=== PATIENT | male | born 1970 | race Caucasian/White ===

== ENCOUNTER 2019-11-21 21:32 | Emergency (ER) | payer MEDICARE ==
--- NOTE | 2019-11-21 21:45 | ERPHSYRPT ---
- History of Present Illness Time Seen by Provider: 11/21/19 21:45 Source: patient Exam Limitations: no limitations Physician History: This is a 49-year-old male who was had a cough for several weeks (at least 3 weeks). Initially, he was only having chest pain with his cough. Patient still has persistent cough but he also has some persistent chest pain. His description is more of a left chest wall pain it is localized and nonradiating it is tender to touch and more tender when he coughs. Approximately 2 months ago the patient was tested for COVID-19 and it was negative. He also had flu swabs taken and those results were also negative except for he was positive for RSV. 2 days ago, the patient went to [place] and returned last night. He has no known new exposures to any patients or people with positive COVID-19 test. He does not feel any different since his trip and return to [place]. However, he is most concerned about the persistent cough and the persistent localized left chest wall chest pain. He also states that he is becoming more fatigued because he is coughing chronically. He takes Seroquel to sleep, insulin for his diabetes, and gabapentin for treatment of peripheral neuropathy. Patient does smoke cigarettes daily. Is not had a fever. On arrival his heart rate is 84 and his room air oxygenation is 99%. Timing/Duration: week(s) (3) Cough Quality/Degree: moderate, productive cough, sputum Possible Cause: chronic episodes Modifying Factors: Improves With: coughing Associated Symptoms: chest pain/soreness (Localized left chest wall pain), cough , No headache, No shortness of breath Allergies/Adverse Reactions: No Known Drug Allergies Allergy (Unverified 11/21/19 23:07) Travel Risk - International Travel Have you traveled outside of the country in past 3 weeks: No Have you or anyone close to you been diagnosed with or: No Do your reside in a community with a known COVID-19 case?: Yes If Yes where:: [facility] - Coronavirus Screening Has patient experienced Coronavirus symptoms: No - Review of Systems Constitutional: Fatigue, No Fever, No Chills, No Night Sweats Eyes: No Symptoms Ears, Nose, & Throat: No Symptoms Respiratory: Cough, No Dyspnea, No Stridor, No Wheezing Cardiac: Chest Pain (Primarily with cough) Abdominal/Gastrointestinal: No Symptoms, No Abdominal Pain, No Nausea, No Vomiting, No Diarrhea Genitourinary Symptoms: No Symptoms Musculoskeletal: Other (Left chest wall pain) Skin: No Symptoms Neurological: No Symptoms, Sensory Changes Psychological: No Symptoms Endocrine: No Symptoms Hematologic/Lymphatic: No Symptoms Immunological/Allergic: No Symptoms All Other Systems: Reviewed and Negative - Past Medical History Pertinent Past Medical History: Yes - Nursing Vital Signs Nursing Vital Signs: Initial Vital Signs Temperature 98.9 F 11/21/19 22:34 Pulse Rate 75 11/21/19 22:34 Respiratory Rate 18 11/21/19 22:34 Blood Pressure 142/99 11/21/19 22:34 O2 Sat by Pulse Oximetry 98 11/21/19 22:34 Pain Scale Pain Intensity 8 - Physical Exam General Appearance: mild distress, alert, anxiety Eye Exam: PERRL/EOMI, eyes nml inspection Ears, Nose, Throat Exam: normal ENT inspection, moist mucous membranes Neck Exam: normal inspection, non-tender, supple, full range of motion Respiratory Exam: normal breath sounds, chest tenderness (Left anterior chest wall. Localized. Worse with palpation), lungs clear, airway intact, No respiratory distress, No accessory muscle use, No rhonchi, No wheezing, No stridor Cardiovascular Exam: regular rate/rhythm, normal heart sounds, normal peripheral pulses Gastrointestinal/Abdomen Exam: soft, normal bowel sounds, No tenderness Rectal Exam: not done Back Exam: normal inspection, normal range of motion, CVA tenderness Extremity Exam: normal inspection, normal range of motion, pelvis stable Neurologic Exam: alert, oriented x 3, cooperative, cage fighter II-XII nml as tested Skin Exam: normal color, warm Lymphatic Exam: No adenopathy SpO2 Interpretation: normal O2 Delivery: Room Air - Course Nursing assessment & vital signs reviewed: Yes EKG Interpreted by Me: RATE (76), Sinus Rhythm, NORMAL AXIS, NORMAL INTERVALS, NORMAL QRS, Other (No acute ischemic changes. No comparison EKG available) Ordered Tests: Active Orders 24 hr Category Date Time Status [employer] STAT Care 11/21/19 22:35 Active EKG-ER Only STAT Care 11/21/19 22:34 Active IV Insertion STAT Care 11/21/19 22:34 Active Isolation, Initiate & Maintain Q4H Care 11/21/19 23:06 Active CHEST 1 VIEW (PORTABLE) Stat Exams 05/26/20 23:26 Taken CBC W DIFF Stat Lab 11/21/19 22:55 Completed CMP Stat Lab 11/21/19 22:55 Completed D-DIMER QUANTITATIVE Stat Lab 11/21/19 22:55 Completed Traverse Screen Stat Lab 11/21/19 22:55 Completed NT PRO BNP Stat Lab 11/21/19 22:55 Completed PROTIME WITH INR Stat Lab 11/21/19 22:55 Completed TROPONIN Q3H Lab 11/21/19 22:55 Completed TROPONIN Q3H Lab 11/22/19 01:45 Ordered TROPONIN Q3H Lab 11/22/19 04:45 Ordered TROPONIN Q3H Lab 11/22/19 07:45 Ordered TROPONIN Q3H Lab 11/22/19 10:45 Ordered UA W/RFX UR CULTURE Stat Lab 11/21/19 23:09 Completed Medication Summary Discontinued Medications Generic Name Dose Route Start Last Admin Trade Name Freq PRN Reason Stop Dose Admin Aspirin 324 mg 11/21/19 22:34 11/21/19 23:15 Baby Aspirin 81 Mg Chew PO 11/21/19 22:35 324 mg STAT ONE Administration Aspirin Confirm 11/21/19 23:15 Baby Aspirin 81 Mg Chew Administered 11/21/19 23:16 Dose 324 mg .ROUTE .STSpecifiedBy-MED ONE Lab/Rad Data: Laboratory Result Diagrams 11/21/19 22:55 11/21/19 22:55 Laboratory Results 11/21/19 11/21/19 11/21/19 Range/Units 23:09 22:55 22:55 WBC (4.0-10.5) K/mm3 RBC (4.1-5.6) M/mm3 Hgb (12.5-18.0) gm/dl Hct (42-50) % MCV (78-100) fl MCH (26-32) pg MCHC (32-36) g/dl RDW (11.5-14.0) % Plt Count (150-450) K/mm3 MPV (7.5-11.0) fl Gran % (36.0-66.0) % Eos # (Auto) (0-0.5) Absolute Lymphs (auto) (1.0-4.6) Absolute Monos (auto) (0.0-1.3) Lymphocytes % (24.0-44.0) % Monocytes % (0.0-12.0) % Eosinophils % (0.00-5.0) % Basophils % (0.0-0.4) % Absolute Granulocytes (1.4-6.9) Basophils # (0-0.4) PT (8.83-12.87) SECONDS INR (0.8-3.0) D-Dimer (215-500) ng/mL Sodium (137-145) mmol/L Potassium (3.5-5.1) mmol/L Chloride (98-107) mmol/L Carbon Dioxide (22-30) mmol/L Anion Gap (5-15) MEQ/L BUN (9-20) mg/dL Creatinine (0.66-1.25) mg/dL Estimated GFR ML/MIN Glucose (74-106) mg/dL Calcium (8.4-10.2) mg/dL Total Bilirubin (0.2-1.3) mg/dL AST (17-59) U/L ALT (0-50) U/L Alkaline Phosphatase (38-126) U/L Troponin I (0.000-0.034) ng/mL NT-Pro-B Natriuret Pep (0-450) pg/mL Serum Total Protein (6.3-8.2) g/dL Albumin (3.5-5.0) g/dL Urine Color YELLOW (YELLOW) Urine Appearance CLEAR (CLEAR) Urine pH 6.0 (5-6) Ur Specific [place] 1.031 (1.005-1.025) Urine Protein NEGATIVE (Negative) Urine Ketones NEGATIVE (NEGATIVE) Urine Blood NEGATIVE (0-5) Rodrigo/ul Urine Nitrite NEGATIVE (NEGATIVE) Urine Bilirubin NEGATIVE (NEGATIVE) Urine Urobilinogen NEGATIVE (0-1) mg/dL Ur Leukocyte Esterase NEGATIVE (NEGATIVE) Urine WBC (Auto) NONE (0-5) /HPF Urine RBC (Auto) NONE (0-2) /HPF U Epithel Cells (Auto) NONE (FEW) /HPF Urine Bacteria (Auto) NONE (NEGATIVE) /HPF Urine Culture Reflexed NO (NO) Urine Glucose >=500 (NEGATIVE) mg/dL Monoscreen NEGATIVE (Negative) Influenza Type A Ag NEGATIVE (NEGATIVE) Influenza Type B Ag NEGATIVE (NEGATIVE) RSV (PCR) NEGATIVE (Negative) Group A Strep Antibody NOT DETECTED (NEGATIVE) 05/26/20 05/26/20 05/26/20 Range/Units 22:55 22:55 22:55 WBC (4.0-10.5) K/mm3 RBC (4.1-5.6) M/mm3 Hgb (12.5-18.0) gm/dl Hct (42-50) % MCV (78-100) fl MCH (26-32) pg MCHC (32-36) g/dl RDW (11.5-14.0) % Plt Count (150-450) K/mm3 MPV (7.5-11.0) fl Gran % (36.0-66.0) % Eos # (Auto) (0-0.5) Absolute Lymphs (auto) (1.0-4.6) Absolute Monos (auto) (0.0-1.3) Lymphocytes % (24.0-44.0) % Monocytes % (0.0-12.0) % Eosinophils % (0.00-5.0) % Basophils % (0.0-0.4) % Absolute Granulocytes (1.4-6.9) Basophils # (0-0.4) PT 11.1 (8.83-12.87) SECONDS INR 0.98 (0.8-3.0) D-Dimer 408 (215-500) ng/mL Sodium 135 L (137-145) mmol/L Potassium 4.3 (3.5-5.1) mmol/L Chloride 100 (98-107) mmol/L Carbon Dioxide 26 (22-30) mmol/L Anion Gap 12.2 (5-15) MEQ/L BUN 20 (9-20) mg/dL Creatinine 0.77 (0.66-1.25) mg/dL Estimated GFR > 60.0 ML/MIN Glucose 399 H (74-106) mg/dL Calcium 9.1 (8.4-10.2) mg/dL Total Bilirubin 0.40 (0.2-1.3) mg/dL AST 20 (17-59) U/L ALT 15 (0-50) U/L Alkaline Phosphatase 84 (38-126) U/L Troponin I < 0.012 (0.000-0.034) ng/mL NT-Pro-B Natriuret Pep 54.1 (0-450) pg/mL Serum Total Protein 6.9 (6.3-8.2) g/dL Albumin 3.9 (3.5-5.0) g/dL Urine Color (YELLOW) Urine Appearance (CLEAR) Urine pH (5-6) Ur Specific [place] (1.005-1.025) Urine Protein (Negative) Urine Ketones (NEGATIVE) Urine Blood (0-5) Rodrigo/ul Urine Nitrite (NEGATIVE) Urine Bilirubin (NEGATIVE) Urine Urobilinogen (0-1) mg/dL Ur Leukocyte Esterase (NEGATIVE) Urine WBC (Auto) (0-5) /HPF Urine RBC (Auto) (0-2) /HPF U Epithel Cells (Auto) (FEW) /HPF Urine Bacteria (Auto) (NEGATIVE) /HPF Urine Culture Reflexed (NO) Urine Glucose (NEGATIVE) mg/dL Monoscreen (Negative) Influenza Type A Ag (NEGATIVE) Influenza Type B Ag (NEGATIVE) RSV (PCR) (Negative) Group A Strep Antibody (NEGATIVE) 11/21/19 Range/Units 22:55 WBC 7.1 (4.0-10.5) K/mm3 RBC 5.36 (4.1-5.6) M/mm3 Hgb 15.7 (12.5-18.0) gm/dl Hct 48.9 (42-50) % MCV 91.2 (78-100) fl MCH 29.3 (26-32) pg MCHC 32.1 (32-36) g/dl RDW 13.2 (11.5-14.0) % Plt Count 184 (150-450) K/mm3 MPV 10.9 (7.5-11.0) fl Gran % 51.1 (36.0-66.0) % Eos # (Auto) 0.24 (0-0.5) Absolute Lymphs (auto) 2.67 (1.0-4.6) Absolute Monos (auto) 0.54 (0.0-1.3) Lymphocytes % 37.5 (24.0-44.0) % Monocytes % 7.6 (0.0-12.0) % Eosinophils % 3.4 (0.00-5.0) % Basophils % 0.4 (0.0-0.4) % Absolute Granulocytes 3.64 (1.4-6.9) Basophils # 0.03 (0-0.4) PT (8.83-12.87) SECONDS INR (0.8-3.0) D-Dimer (215-500) ng/mL Sodium (137-145) mmol/L Potassium (3.5-5.1) mmol/L Chloride (98-107) mmol/L Carbon Dioxide (22-30) mmol/L Anion Gap (5-15) MEQ/L BUN (9-20) mg/dL Creatinine (0.66-1.25) mg/dL Estimated GFR ML/MIN Glucose (74-106) mg/dL Calcium (8.4-10.2) mg/dL Total Bilirubin (0.2-1.3) mg/dL AST (17-59) U/L ALT (0-50) U/L Alkaline Phosphatase (38-126) U/L Troponin I (0.000-0.034) ng/mL NT-Pro-B Natriuret Pep (0-450) pg/mL Serum Total Protein (6.3-8.2) g/dL Albumin (3.5-5.0) g/dL Urine Color (YELLOW) Urine Appearance (CLEAR) Urine pH (5-6) Ur Specific [place] (1.005-1.025) Urine Protein (Negative) Urine Ketones (NEGATIVE) Urine Blood (0-5) Rodrigo/ul Urine Nitrite (NEGATIVE) Urine Bilirubin (NEGATIVE) Urine Urobilinogen (0-1) mg/dL Ur Leukocyte Esterase (NEGATIVE) Urine WBC (Auto) (0-5) /HPF Urine RBC (Auto) (0-2) /HPF U Epithel Cells (Auto) (FEW) /HPF Urine Bacteria (Auto) (NEGATIVE) /HPF Urine Culture Reflexed (NO) Urine Glucose (NEGATIVE) mg/dL Monoscreen (Negative) Influenza Type A Ag (NEGATIVE) Influenza Type B Ag (NEGATIVE) RSV (PCR) (Negative) Group A Strep Antibody (NEGATIVE) - Progress Progress: improved, re-examined Air Movement: good Progress Note: 11/22/19 00:12 Chest x-ray reveals no acute infiltrate Medical decision making: This patient has had symptoms for approximately 3 weeks. We will treat him as a bronchitis and cover him for a bacterial infection. We will give him Rocephin 1 mg intravenous here and give him Lortab elixir, prednisone and Z-Seth as an outpatient. Blood Culture(s) Obtained: No Antibiotics given: Yes Counseled pt/family regarding: lab results, diagnosis, need for follow-up, rad results - Departure Departure Disposition: Home Clinical Impression: Bronchitis Condition: Stable Critical Care Time: No Referrals: HARLEY NUÑEZ NP [Primary Care Provider] - Additional Instructions: Drink plenty of fluids. Avoid exposure to any kind of smoke because it is irritating to the respiratory tract. Follow-up with your primary care physician for persistent symptoms. Return to the emergency department if your chest pain is worsening. Prescriptions: Azithromycin 250 mg [Zithromax 250 MG TABLET] 250 mg PO ZPACK #6 tablet Hydrocodone Bit/Acetaminophen [Hydrocodone-Acetaminophen Soln] 10 ml PO Q6H # 120 ml Prednisone 10 mg [Deltasone 10 mg] 10 mg PO TID #12 tablet
[2019-11-21] MEDS ORDERED: BABY ASPIRIN 81 MG CHEW PO ONE (22:34)
[2019-11-21 23:06] LABS: Absolute Neutrophil Ct (ANC) 3.64 (1.4-6.9); BASOPHIL % 0.4 % (0.0-0.4); Basophil (Absolute #) 0.03 (0-0.4); Eosinophil % 3.4 % (0.00-5.0); Eosinophil (Absolute #) 0.24 (0-0.5); Hematocrit 48.9 % (42-50); Hemoglobin 15.7 gm/dl (12.5-18.0); Lymphocyte (Absolute #) 2.67 (1.0-4.6); Lymphocytes % 37.5 % (24.0-44.0); Mean Cell Volume 91.2 fl (78-100); Mean Corpuscular Hemoglobin 29.3 pg (26-32); Mean Corpuscular Hgb Concent. 32.1 g/dl (32-36); Mean Platelet Volume 10.9 fl (7.5-11.0); Monocyte (Absolute #) 0.54 (0.0-1.3); Monocytes % 7.6 % (0.0-12.0); Neutrophil % 51.1 % (36.0-66.0); Platelet Count 184 K/mm3 (150-450); Red Blood Count 5.36 M/mm3 (4.1-5.6); Red Cell Distribution Width 13.2 % (11.5-14.0); White Blood Count 7.1 K/mm3 (4.0-10.5)
[2019-11-21 23:14] LABS: INR 0.98 (0.8-3.0); PROTIME 11.1 SECONDS (8.83-12.87)
[2019-11-21] MEDS ORDERED: BABY ASPIRIN 81 MG CHEW ONE (23:15)
[2019-11-21 23:19] LABS: Appearance CLEAR (CLEAR); Bilirubin NEGATIVE (NEGATIVE); Blood NEGATIVE Ery/ul (0-5); Glucose >=500 mg/dL (NEGATIVE); Ketones NEGATIVE (NEGATIVE); Leukocyte Esterase NEGATIVE (NEGATIVE); Nitrite NEGATIVE (NEGATIVE); Protein,Urine Dip NEGATIVE (Negative); Specific Gravity 1.031 (1.005-1.025); Urobilinogen NEGATIVE mg/dL (0-1)
[2019-11-21 23:29] LABS: ALBUMIN 3.9 g/dL (3.5-5.0); ALKALINE PHOSPHATASE 84 U/L (38-126); ANION GAP 12.2 MEQ/L (5-15); BLOOD UREA NITROGEN 20 mg/dL (9-20); CHLORIDE 100 mmol/L (98-107); Calcium 9.1 mg/dL (8.4-10.2); Carbon Dioxide 26 mmol/L (22-30); Creatinine 1 0.77 mg/dL (0.66-1.25); Glucose 399 mg/dL (74-106); NT PRO BNP 54.1 pg/mL (0-450); Potassium 4.3 mmol/L (3.5-5.1); SGOT/AST 20 U/L (17-59); SGPT/ALT 15 U/L (0-50); SODIUM 135 mmol/L (137-145); Total Protein 6.9 g/dL (6.3-8.2)
[2019-11-21 23:39] LABS: INFLUENZA A NEGATIVE (NEGATIVE); INFLUENZA B NEGATIVE (NEGATIVE); RESPIRATORY SYNCTIAL VIRUS NEGATIVE (Negative)
[2019-11-22] MEDS ORDERED: Zofran 4 MG/2 ML VIAL IV ONE (00:09)
[2019-11-22] MEDS ORDERED: Hydromorphone 1 mg/ml Ampule IV ONE (00:09)
[2019-11-22] MEDS ORDERED: ROCEPHIN 1 Gm-D5w 50 ml Bag** 1 G/50 ML IVPB IV STA (00:17)
[2019-11-22] MEDS ORDERED: solu-MEDROL 125 MG IV ONE (00:18)
[2019-11-22] MEDS ORDERED: Zofran 4 MG/2 ML VIAL ONE (00:28)
[2019-11-22] MEDS ORDERED: solu-MEDROL 125 MG ONE (00:28)
[2019-11-22] MEDS ORDERED: Hydromorphone 1 mg/ml Ampule ONE (00:28)
[2019-11-22] MEDS ORDERED: ROCEPHIN 1 Gm-D5w 50 ml Bag** 1 G/50 ML IVPB IV ONE (00:29)
[2019-11-22 01:29] VITALS: BP 130/86; PULSE 70; O2SAT 95
--- NOTE | 2019-11-22 09:00 | XRAY ---
Indication: Chest pain and cough. Suspect Covid 19. Comparison: None Portable chest demonstrates normal heart and lungs with a few incidental tiny calcified granulomas. Bony thorax intact.
== END 2019-11-22 01:29 | disposition home or self-care (01) ==
LOC: ED 21:32
DX: J40 Bronchitis, not specified as acute or chronic (principal)
CPT/HCPCS: 36000; 36415; 71045; 80053; 81001; 83880; 84484; 85025; 85379; 85610; 86308; 87631; 87651; 93005; 93041; 96374; 96375; 99284; J0696; J1170; J2405; J2930; A9270-GY

== ENCOUNTER 2020-02-28 18:58 | Inpatient (IN) | payer MEDICARE ==
[2020-02-28] MEDS ORDERED: Sodium Chloride 0.9% 1000 ML 1,000 ML IV STA (19:43)
[2020-02-28] MEDS ORDERED: MORPHINE SULFATE 4 MG INJ IV ONE (19:43)
[2020-02-28] MEDS ORDERED: Zofran 4 MG/2 ML VIAL IV ONE (19:43)
[2020-02-28] MEDS ORDERED: Pepcid 20 MG VIAL IV ONE ×2 (19:43→19:50)
[2020-02-28] MEDS ORDERED: Zofran 4 MG/2 ML VIAL ONE (19:50)
--- NOTE | 2020-02-28 19:50 | ERPHSYRPT ---
- History of Present Illness Time Seen by Provider: 02/28/20 19:25 Historian: patient Exam Limitations: no limitations Patient Subjective Stated Complaint: pt c/o fever, cough, vomiting, diarrhea, chills, sob since 1700 yesterday. Triage Nursing Assessment: pt c/o fever, cough, vomiting, diarrhea, abd pain, chills, sob since 1700 yesterday. Pt c/o aching all over, slept 12 hours since yesterday, and has never felt this bad. Lungs coarse with rhonci until pt coughed, then clear ant and post throughout. Sputum was white, slightly pink tinged. Abd soft with active bs x4 quad, nontender. Physician History: 49 years old male with history of type 2 diabetes mellitus, poorly controlled presented in the ER with chief complaint of sudden onset nausea vomiting with diarrhea and abdominal pain along with cough and congestion 2 days ago with progressive worsening. Patient report multiple episodes of nonprojectile, n onbilious vomiting with no hematemesis. Also has multiple episodes of loose watery diarrhea with generalized abdominal pain. Subjective feeling of fever and chills and cough productive of yellow-green sputum with increasing wheezing. Denies any known sick contact with COVID-19 positive patient. Patient is feeling weak tired and fatigued along with body aches and no energy. Timing/Duration: day(s) (2), sudden, worse Activities at Onset: rest Quality: cramping Abdominal Pain Onset Location: generalized abdomen Pain Radiation: no radiation Severity of Pain-Max: moderate Severity of Pain-Current: moderate Modifying Factors: Improves With: coughing, vomiting Associated Symptoms: back, diarrhea, fever/chills, fatigue, nausea, vomiting, weakness Previous symptoms: no prior history Allergies/Adverse Reactions: No Known Drug Allergies Allergy (Verified 02/28/20 19:22) Home Medications: Dulaglutide [Trulicity] 1.5 mg SQ WEEKLY 02/28/20 [History] Gabapentin [Neurontin] 800 mg PO TID 02/28/20 [History] Insulin Detemir [Levemir] 40 units SQ BID 02/28/20 [History] Hx Tetanus, Diphtheria Vaccination/Date Given: Yes Hx Influenza Vaccination/Date Given: No Hx Pneumococcal Vaccination/Date Given: No Immunizations Up to Date: Yes Travel Risk - International Travel Have you traveled outside of the country in past 3 weeks: No - Coronavirus Screening Symptoms: Fever, Cough: New Onset, Shortness of Breath, Vomiting/Diarrhea, Headaches/Body Aches/Fatigue Close contact with a COVID-19 positive Pt in past 14-21 Days: No - Review of Systems Constitutional: Fever, Chills, Fatigue, Malaise Eyes: No Symptoms Ears, Nose, & Throat: No Symptoms Respiratory: Cough, Wheezing Cardiac: No Symptoms Abdominal/Gastrointestinal: Abdominal Pain, Nausea, Vomiting, Diarrhea Genitourinary Symptoms: No Symptoms Musculoskeletal: Myalgias Skin: No Symptoms Neurological: No Symptoms Psychological: No Symptoms Endocrine: No Symptoms Hematologic/Lymphatic: No Symptoms Immunological/Allergic: No Symptoms - Past Medical History Pertinent Past Medical History: Yes Neurological History: No Pertinent History ENT History: No Pertinent History Cardiac History: No Pertinent History Respiratory History: No Pertinent History Endocrine Medical History: Diabetes Type II Musculoskeletal History: Arthritis GI Medical History: No Pertinent History History: No Pertinent History Psycho-Social History: Depression Male Reproductive Disorders: No Pertinent History - Past Surgical History Past Surgical History: Yes Neuro Surgical History: No Pertinent History Cardiac: No Pertinent History Respiratory: No Pertinent History Gastrointestinal: No Pertinent History Genitourinary: No Pertinent History Musculoskeletal: Orthopedic Surgery Male Surgical History: No Pertinent History Other Surgical History: 2 knee replacements right knee. Left shoulder surgery - Social History Smoking Status: Current every day smoker How long have you smoked: 20 yrs Exposure to second hand smoke: Yes Drug Use: marijuana Patient Lives Alone: No - Nursing Vital Signs Nursing Vital Signs: Initial Vital Signs Temperature 98.6 F 02/28/20 19:10 Pulse Rate 111 H 02/28/20 19:10 Respiratory Rate 18 02/28/20 19:10 Blood Pressure 129/89 02/28/20 19:10 O2 Sat by Pulse Oximetry 96 02/28/20 19:10 Pain Scale Pain Intensity 3 - Physical Exam General Appearance: no apparent distress, alert Eye Exam: PERRL/EOMI, eyes nml inspection Ears, Nose, Throat Exam: normal ENT inspection, pharynx normal Neck Exam: normal inspection, non-tender, supple, full range of motion Respiratory Exam: wheezing Cardiovascular Exam: normal peripheral pulses, tachycardia Gastrointestinal/Abdomen Exam: soft, tenderness (Generalized), other (Hyperactive bowel sounds) Back Exam: normal inspection, No CVA tenderness Extremity Exam: normal inspection, normal range of motion Neurologic Exam: alert, oriented x 3, cooperative Skin Exam: normal color SpO2 Interpretation: normal SpO2: 96 O2 Delivery: Room Air Ordered Tests: Active Orders 24 hr Category Date Time Status IV Insertion STAT Care 02/28/20 19:43 Active NPO (ED) STAT Care 02/28/20 19:43 Active ABDOMEN AND PELVIS W/0 CONTRAS [CT] Stat Exams 02/28/20 19:44 Taken CHEST 1 VIEW (PORTABLE) Stat Exams 02/28/20 19:44 Taken AMYLASE Stat Lab 02/28/20 19:43 Completed CBC W DIFF Stat Lab 02/28/20 19:43 Completed CMP Stat Lab 02/28/20 19:43 Completed LIPASE Stat Lab 02/28/20 19:43 Completed Lactic Acid Stat Lab 02/28/20 19:43 Completed Lactic Acid Stat Lab 02/28/20 22:05 Completed Manual Differential NC Stat Lab 02/28/20 19:43 Completed UA W/RFX UR CULTURE Stat Lab 02/28/20 21:32 Completed VENOUS BLOOD GAS Stat Lab 02/28/20 19:43 Completed Transfer Order Routine Transfer 02/28/20 Ordered Medication Summary Generic Name Dose Route Start Last Admin Trade Name Freq PRN Reason Stop Dose Admin Dexamethasone Sodium Phosphate 2 mg 02/28/20 21:45 Decadron 4 Mg Inj IV 03/29/20 21:44 Q6H RAMAN Insulin Human Regular 4 unit 02/29/20 07:30 Humulin R SQ 03/30/20 07:29 AC RAMAN Discontinued Medications Generic Name Dose Route Start Last Admin Trade Name Freq PRN Reason Stop Dose Admin Famotidine 20 mg 02/28/20 19:43 02/28/20 19:58 Pepcid 20 Mg Vial IV 02/28/20 19:44 20 mg STAT ONE Administration Famotidine Confirm 02/28/20 19:50 Pepcid 20 Mg Vial Administered 02/28/20 19:51 Dose 20 mg IV .STK-MED ONE Sodium Chloride 1,000 mls @ 999 mls/hr 02/28/20 19:43 02/28/20 21:19 Sodium Chloride 0.9% 1000 Ml IV 02/28/20 20:43 Infused .Q1H1M STA Infusion Sodium Chloride Confirm 02/28/20 19:51 Sodium Chloride 0.9% 1000 Ml Administered 02/28/20 19:52 Dose 1,000 mls @ ud .ROUTE .STK-MED ONE Piperacillin Sod/Tazobactam 100 mls @ 200 mls/hr 02/28/20 20:44 02/28/20 21:21 Sod 3.375 gm/ Sodium Chloride IV 02/28/20 21:13 200 mls/hr STAT ONE Administration Sodium Chloride Confirm 02/28/20 21:19 Sodium Chloride 100ml Mini-Bag Plus Administered 02/28/20 21:20 Dose 100 mls @ ud IV .STK-MED ONE Morphine Sulfate 4 mg 02/28/20 19:43 02/28/20 19:59 Morphine Sulfate 4 Mg Inj IV 02/28/20 19:44 4 mg STAT ONE Administration Morphine Sulfate Confirm 02/28/20 19:51 Morphine Sulfate 4 Mg Inj Administered 02/28/20 19:52 Dose 4 mg .ROUTE .STK-MED ONE Ondansetron HCl 4 mg 02/28/20 19:43 02/28/20 19:58 Zofran 4 Mg/2 Ml Vial IV 02/28/20 19:44 4 mg STAT ONE Administration Ondansetron HCl Confirm 02/28/20 19:50 Zofran 4 Mg/2 Ml Vial Administered 02/28/20 19:51 Dose 4 mg .ROUTE .STK-MED ONE Piperacillin Sod/Tazobactam Sod Confirm 02/28/20 21:18 Zosyn 3.375 Gm Vial Administered 02/28/20 21:19 Dose 3.375 gm IV .STK-MED ONE Remdesivir 200 mg 02/28/20 21:34 Remdesivir IV 02/28/20 21:35 ONCE STA Lab/Rad Data: Laboratory Result Diagrams 02/28/20 19:43 02/28/20 19:43 Laboratory Results 02/28/20 02/28/20 02/28/20 Range/Units 22:05 21:32 19:43 WBC (4.0-10.5) K/mm3 RBC (4.1-5.6) M/mm3 Hgb (12.5-18.0) gm/dl Hct (42-50) % MCV (78-100) fl MCH (26-32) pg MCHC (32-36) g/dl RDW (11.5-14.0) % Plt Count (150-450) K/mm3 MPV (7.5-11.0) fl Segmented Neutrophils (36.-66.) % Lymphocytes (Manual) (24-44) % Monocytes (Manual) (0.0-12.0) % Toxic Granulation Platelet Estimate (NORMAL) RBC Morphology pO2/FiO2 Ratio 21.0 % VBG pH 7.51 H (7.32-7.42) VBG pCO2 at Pat Temp 33 L (42-55) mm/Hg VBG pO2 at Pat Temp 48 H (25-40) mm/Hg VBG HCO3 26.3 (22-28) meq/L VBG O2 Sat ([place]) 87.8 L (95-100) VBG Base Excess 3.6 H (-2.0-2.0) VBG Hemoglobin 17.2 VBG Carboxyhemoglobin 4.7 (0.0-6.9) % T HGB POC Potassium 3.9 (3.5-5.1) Sodium (137-145) mmol/L Potassium (3.5-5.1) mmol/L Chloride (98-107) mmol/L Carbon Dioxide (22-30) mmol/L Anion Gap (5-15) MEQ/L BUN (9-20) mg/dL Creatinine (0.66-1.25) mg/dL Estimated GFR ML/MIN Glucose (74-106) mg/dL Lactic Acid 1.1 (0.4-2.0) Calcium (8.4-10.2) mg/dL Total Bilirubin (0.2-1.3) mg/dL AST (17-59) U/L ALT (0-50) U/L Alkaline Phosphatase (38-126) U/L Serum Total Protein (6.3-8.2) g/dL Albumin (3.5-5.0) g/dL Amylase (30-110) U/L Lipase (23-300) U/L Urine Color T[place]IRA (YELLOW) Urine Appearance CLEAR (CLEAR) Urine pH 6.0 (5-6) Ur Specific [place] 1.031 (1.005-1.025) Urine Protein 100 (Negative) Urine Ketones NEGATIVE (NEGATIVE) Urine Blood NEGATIVE (0-5) Rodrigo/ul Urine Nitrite NEGATIVE (NEGATIVE) Urine Bilirubin NEGATIVE (NEGATIVE) Urine Urobilinogen 2 (0-1) mg/dL Ur Leukocyte Esterase NEGATIVE (NEGATIVE) Urine WBC (Auto) NONE (0-5) /HPF Urine RBC (Auto) NONE (0-2) /HPF U Epithel Cells (Auto) NONE (FEW) /HPF Urine Bacteria (Auto) NONE SEEN (NEGATIVE) /HPF Urine Mucus (Auto) SLIGHT (NEGATIVE) /HPF Urine Culture Reflexed NO (NO) Urine Glucose >=500 (NEGATIVE) mg/dL 02/28/20 02/28/20 02/28/20 Range/Units 19:43 19:43 19:43 WBC 26.1 H* (4.0-10.5) K/mm3 RBC 5.72 H (4.1-5.6) M/mm3 Hgb 16.7 (12.5-18.0) gm/dl Hct 49.2 (42-50) % MCV 86.0 (78-100) fl MCH 29.2 (26-32) pg MCHC 33.9 (32-36) g/dl RDW 12.7 (11.5-14.0) % Plt Count 186 (150-450) K/mm3 MPV 11.3 H (7.5-11.0) fl Segmented Neutrophils 87 H (36.-66.) % Lymphocytes (Manual) 8 L (24-44) % Monocytes (Manual) 5 (0.0-12.0) % Toxic Granulation 1+ Platelet Estimate NORMAL (NORMAL) RBC Morphology NORMAL pO2/FiO2 Ratio % VBG pH (7.32-7.42) VBG pCO2 at Pat Temp (42-55) mm/Hg VBG pO2 at Pat Temp (25-40) mm/Hg VBG HCO3 (22-28) meq/L VBG O2 Sat ([place]) (95-100) VBG Base Excess (-2.0-2.0) VBG Hemoglobin VBG Carboxyhemoglobin (0.0-6.9) % T HGB POC Potassium (3.5-5.1) Sodium 132 L (137-145) mmol/L Potassium 3.8 (3.5-5.1) mmol/L Chloride 99 (98-107) mmol/L Carbon Dioxide 24 (22-30) mmol/L Anion Gap 13.1 (5-15) MEQ/L BUN 15 (9-20) mg/dL Creatinine 0.93 (0.66-1.25) mg/dL Estimated GFR > 60.0 ML/MIN Glucose 234 H (74-106) mg/dL Lactic Acid 2.0 (0.4-2.0) Calcium 9.3 (8.4-10.2) mg/dL Total Bilirubin 1.20 (0.2-1.3) mg/dL AST 16 L (17-59) U/L ALT 11 (0-50) U/L Alkaline Phosphatase 80 (38-126) U/L Serum Total Protein 7.5 (6.3-8.2) g/dL Albumin 4.3 (3.5-5.0) g/dL Amylase 47 (30-110) U/L Lipase 22 L (23-300) U/L Urine Color (YELLOW) Urine Appearance (CLEAR) Urine pH (5-6) Ur Specific [place] (1.005-1.025) Urine Protein (Negative) Urine Ketones (NEGATIVE) Urine Blood (0-5) Rodrigo/ul Urine Nitrite (NEGATIVE) Urine Bilirubin (NEGATIVE) Urine Urobilinogen (0-1) mg/dL Ur Leukocyte Esterase (NEGATIVE) Urine WBC (Auto) (0-5) /HPF Urine RBC (Auto) (0-2) /HPF U Epithel Cells (Auto) (FEW) /HPF Urine Bacteria (Auto) (NEGATIVE) /HPF Urine Mucus (Auto) (NEGATIVE) /HPF Urine Culture Reflexed (NO) Urine Glucose (NEGATIVE) mg/dL - Progress Progress: improved, pain not gone completely, re-examined Progress Note: 02/28/20 49 years old is evaluated for symptoms of gastroenteritis with cough. He is given fluid bolus and Zofran along with morphine, on reevaluation feeling better. Did not have any episode of diarrhea or vomiting while in the ER. Patient work-up showed white count of 26 with bilateral pneumonia. I have obtained CT abdomen pelvis without contrast which is negative. Patient is not in DKA. I believe patient has probably COVID-19. Is given a dose of antibiotic Zosyn for pneumonia and discussed with Dr. Arshad who recommended starting on Remdesivir Decadron and patient is accepted for admission. Is with patient understand and agrees with it. Discussed with DrMarcel: Other (Akua) Counseled pt/family regarding: lab results, diagnosis, rad results - Departure Departure Disposition: In-patient Admission Clinical Impression: Suspected COVID-19 virus infection, Gastroenteritis Bilateral pneumonia Qualifiers: Pneumonia type: due to unspecified organism Lung location: unspecified part of lung Qualified Code(s): J18.9 - Pneumonia, unspecified organism Sepsis Qualifiers: Sepsis type: sepsis due to unspecified organism Sepsis acute organ dysfunction status: without acute organ dysfunction Qualified Code(s): A41.9 - Sepsis, unspecified organism Condition: Stable Critical Care Time: Yes Critical Care Time(excluding separately billable procedures): Critical 30-74 mins Referrals: HARLEY NUÑEZ NP [Primary Care Provider] -
[2020-02-28] MEDS ORDERED: MORPHINE SULFATE 4 MG INJ ONE (19:51)
[2020-02-28] MEDS ORDERED: Sodium Chloride 0.9% 1000 ML 1,000 ML ONE (19:51)
[2020-02-28 19:53] LABS: VBG BASE EXCESS 3.6 (-2.0-2.0); VBG CARBOXYHEMOGLOBIN 4.7 % T HGB (0.0-6.9); VBG HCO3- 26.3 meq/L (22-28); VBG HEMOGLOBIN 17.2; VBG O2 SATURATION 87.8 (95-100); VBG POTASSIUM 3.9 (3.5-5.1); VBG pH 7.51 (7.32-7.42)
[2020-02-28 19:59] LABS: Hematocrit 49.2 % (42-50); Hemoglobin 16.7 gm/dl (12.5-18.0); Mean Corpuscular Hemoglobin 29.2 pg (26-32); Mean Corpuscular Hgb Concent. 33.9 g/dl (32-36); Mean Platelet Volume 11.3 fl (7.5-11.0); Platelet Count 186 K/mm3 (150-450); Red Blood Count 5.72 M/mm3 (4.1-5.6); Red Cell Distribution Width 12.7 % (11.5-14.0)
[2020-02-28 20:05] LABS: ALBUMIN 4.3 g/dL (3.5-5.0); ALKALINE PHOSPHATASE 80 U/L (38-126); AMYLASE 47 U/L (30-110); ANION GAP 13.1 MEQ/L (5-15); BLOOD UREA NITROGEN 15 mg/dL (9-20); CHLORIDE 99 mmol/L (98-107); Calcium 9.3 mg/dL (8.4-10.2); Carbon Dioxide 24 mmol/L (22-30); Creatinine 1 0.93 mg/dL (0.66-1.25); EST GLOMERULAR FILTRATION RATE > 60.0 ML/MIN; Glucose 234 mg/dL (74-106); LIPASE 22 U/L (23-300); Potassium 3.8 mmol/L (3.5-5.1); SGOT/AST 16 U/L (17-59); SGPT/ALT 11 U/L (0-50); SODIUM 132 mmol/L (137-145); Total Protein 7.5 g/dL (6.3-8.2)
[2020-02-28 20:12] LABS: White Blood Count 26.1 K/mm3 (4.0-10.5)
[2020-02-28] MEDS ORDERED: Zosyn 3.375 GM Vial 3.375 GM in Sodium Chloride 100ML MINI-BAG PLUS 100 ML IV ONE (20:44)
[2020-02-28] MEDS ORDERED: Zosyn 3.375 GM Vial IV ONE (21:18)
[2020-02-28] MEDS ORDERED: Sodium Chloride 100ML MINI-BAG PLUS 100 ML IV ONE (21:19)
[2020-02-28] MEDS ORDERED: REMDESIVIR IV STA (21:34)
[2020-02-28 21:38] LABS: Appearance CLEAR (CLEAR); Bilirubin NEGATIVE (NEGATIVE); Blood NEGATIVE Ery/ul (0-5); Glucose >=500 mg/dL (NEGATIVE); Ketones NEGATIVE (NEGATIVE); Leukocyte Esterase NEGATIVE (NEGATIVE); Mucus SLIGHT /HPF (NEGATIVE); Nitrite NEGATIVE (NEGATIVE); Protein,Urine Dip 100 (Negative); Specific Gravity 1.031 (1.005-1.025); Urobilinogen 2 mg/dL (0-1)
[2020-02-28 21:42] LABS: Bacteria NONE SEEN /HPF (NEGATIVE)
[2020-02-28] MEDS ORDERED: Decadron 4 MG INJ IV SCH (21:45)
[2020-02-28 22:30] LABS: Lymphocytes 8 % (24-44); Monocyte 5 % (0.0-12.0); Neutrophils 87 % (36.-66.); Total Cells Counted 100
[2020-02-28 22:31] LABS: Platelet Estimate NORMAL (NORMAL); Toxic Granulation 1+
[2020-02-29] MEDS ORDERED: Zofran 4 MG/2 ML VIAL IV PRN (00:01)
[2020-02-29] MEDS ORDERED: TYLENOL 325 MG PO PRN (00:01)
[2020-02-29] MEDS ORDERED: DUONEB 0.5-3 MG/3 ml Neb IH PRN (00:20)
[2020-02-29] MEDS: Pepcid 20 MG VIAL IV SCH ×3 (00:26→21:40)
[2020-02-29] MEDS: Zosyn 3.375 GM Vial 3.375 GM in Sodium Chloride 100ML MINI-BAG PLUS 100 ML IV SCH ×5 (00:28→23:05)
[2020-02-29 04:34] LABS: BASOPHIL % 0.1 % (0.0-0.4); Basophil (Absolute #) 0.03 (0-0.4); Eosinophil % 0.1 % (0.00-5.0); Eosinophil (Absolute #) 0.03 (0-0.5); Hematocrit 44.1 % (42-50); Hemoglobin 14.6 gm/dl (12.5-18.0); Lymphocyte (Absolute #) 2.97 (1.0-4.6); Lymphocytes % 14.2 % (24.0-44.0); Mean Cell Volume 88.2 fl (78-100); Mean Corpuscular Hemoglobin 29.2 pg (26-32); Mean Corpuscular Hgb Concent. 33.1 g/dl (32-36); Mean Platelet Volume 11.2 fl (7.5-11.0); Monocyte (Absolute #) 1.25 (0.0-1.3); Neutrophil % 79.6 % (36.0-66.0); Platelet Count 152 K/mm3 (150-450); Red Cell Distribution Width 12.7 % (11.5-14.0); White Blood Count 20.9 K/mm3 (4.0-10.5)
[2020-02-29 04:45] LABS: ALBUMIN 3.5 g/dL (3.5-5.0); ALKALINE PHOSPHATASE 69 U/L (38-126); ANION GAP 8.5 MEQ/L (5-15); BLOOD UREA NITROGEN 13 mg/dL (9-20); CHLORIDE 100 mmol/L (98-107); Calcium 8.2 mg/dL (8.4-10.2); Carbon Dioxide 27 mmol/L (22-30); Creatinine 1 0.96 mg/dL (0.66-1.25); EST GLOMERULAR FILTRATION RATE > 60.0 ML/MIN; Glucose 280 mg/dL (74-106); Potassium 3.6 mmol/L (3.5-5.1); SGOT/AST 12 U/L (17-59); SGPT/ALT 8 U/L (0-50); SODIUM 131 mmol/L (137-145); Total Protein 6.4 g/dL (6.3-8.2)
[2020-02-29] MEDS ORDERED: Zosyn 3.375 GM Vial IV ONE (05:02)
[2020-02-29] MEDS ORDERED: Sodium Chloride 100ML MINI-BAG PLUS 100 ML IV ONE (05:03)
[2020-02-29] MEDS: DUONEB 0.5-3 MG/3 ml Neb IH SCH ×4 (05:48→19:44)
[2020-02-29] MEDS ORDERED: VENTOLIN COMMON CANISTER IH SCH (07:00)
[2020-02-29] MEDS ORDERED: HUMULIN R SQ SCH (07:30)
--- NOTE | 2020-02-29 07:39 | PCM.HP ---
History of Present Illness - Chief Complaint Chief Complaint: pneumonia, sepsis History of Present Illness: is a 49 year old male who became ill 5 days prior to arrival, he states he sat in the rain at a football game then became congested and worsened after. He developed a cough that was productive and fever, he complains of pain in his abdomen with movement or cough, he believes his muscles are sore from coughing so much. He has had difficulty resting, he has a history of poorly controlled type 2 diabetes but no cardiac or respiratory problems. - Review of Systems Constitutional: Fever Respiratory: Cough Cardiac: No Chest Pain, No Edema, No Syncope Abdominal/Gastrointestinal: Abdominal Pain, No Nausea, No Vomiting, No Diarrhea Skin: No Rash All Other Systems: Reviewed and Negative Medications & Allergies Home Medications: Home Medication List Dulaglutide [Trulicity] 1.5 mg SQ WEEKLY 02/28/20 [History Confirmed 02/29/20] Gabapentin [Neurontin] 800 mg PO TID 02/28/20 [History Confirmed 02/29/20] Insulin Detemir [Levemir] 40 units SQ BID 02/28/20 [History Confirmed 02/29/20] Allergies/Adverse Reactions: Allergies Allergy/AdvReac Type Severity Reaction Status Date / Time No Known Drug Allergies Allergy Verified 02/29/20 00:19 - Past Medical History Past Medical History: Yes Neurological History: No Pertinent History ENT History: No Pertinent History Cardiac History: No Pertinent History Respiratory History: No Pertinent History Endocrine Medical History: Diabetes Type II Musculoskelatal History: Arthritis GI Medical History: No Pertinent History History: No Pertinent History Pyscho-Social History: Depression Male Reproductive Disorders: No Pertinent History - Past Surgical History Past Surgical History: Yes Neuro Surgical History: No Pertinent History Cardiac History: No Pertinent History Respiratory Surgery: No Pertinent History GI Surgical History: No Pertinent History Genitourinary Surgical Hx: No Pertinent History Musculskeletal Surgical Hx: Orthopedic Surgery Male Surgical History: No Pertinent History Other Surgical History: 2 knee replacements right knee. Left shoulder surgery - Social History Smoking Status: Current every day smoker How long have you smoked: 20 years Exposure to second hand smoke: Yes Alcohol: None Drug Use: marijuana - Physical Exam Vital Signs: Vital Signs - 24 hr Temp Pulse Resp BP Pulse Ox 02/29/20 06:51 98.3 F 83 20 108/63 97 02/29/20 05:48 74 24 94 L 02/29/20 04:00 99.3 F 87 20 125/80 94 L 02/29/20 00:33 97 H 26 H 94 L 02/29/20 00:24 98.6 F 91 H 18 129/82 98 02/28/20 23:10 91 H 18 123/82 93 L 02/28/20 22:56 96 02/28/20 22:21 92 H 117/84 97 02/28/20 21:21 96 H 122/80 97 02/28/20 19:10 98.6 F 111 H 18 129/89 96 General Appearance: no apparent distress Neurologic Exam: alert, oriented x 3 Respiratory Exam: rhonchi Cardiovascular Exam: regular rate/rhythm, normal heart sounds, normal peripheral pulses Gastrointestinal/Abdomen Exam: soft, normal bowel sounds, No tenderness, No mass Extremity Exam: normal inspection, normal range of motion, pelvis stable Skin Exam: normal color, warm, dry, No rash Results - Labs Lab/Micro Results: Lab Results-Last 24 Hours 02/28/20 02/28/20 02/28/20 Range/Units 19:43 19:43 19:43 WBC 26.1 H* (4.0-10.5) K/mm3 RBC 5.72 H (4.1-5.6) M/mm3 Hgb 16.7 (12.5-18.0) gm/dl Hct 49.2 (42-50) % MCV 86.0 (78-100) fl MCH 29.2 (26-32) pg MCHC 33.9 (32-36) g/dl RDW 12.7 (11.5-14.0) % Plt Count 186 (150-450) K/mm3 MPV 11.3 H (7.5-11.0) fl Gran % (36.0-66.0) % Eos # (Auto) (0-0.5) Absolute Lymphs (auto) (1.0-4.6) Absolute Monos (auto) (0.0-1.3) Lymphocytes % (24.0-44.0) % Monocytes % (0.0-12.0) % Eosinophils % (0.00-5.0) % Basophils % (0.0-0.4) % Absolute Granulocytes (1.4-6.9) Segmented Neutrophils 87 H (36.-66.) % Lymphocytes (Manual) 8 L (24-44) % Monocytes (Manual) 5 (0.0-12.0) % Basophils # (0-0.4) Toxic Granulation 1+ Platelet Estimate NORMAL (NORMAL) RBC Morphology NORMAL Smear Path Review Pending pO2/FiO2 Ratio % VBG pH (7.32-7.42) VBG pCO2 at Pat Temp (42-55) mm/Hg VBG pO2 at Pat Temp (25-40) mm/Hg VBG HCO3 (22-28) meq/L VBG O2 Sat ([place]) (95-100) VBG Base Excess (-2.0-2.0) VBG Hemoglobin VBG Carboxyhemoglobin (0.0-6.9) % T HGB POC Potassium (3.5-5.1) Sodium 132 L (137-145) mmol/L Potassium 3.8 (3.5-5.1) mmol/L Chloride 99 (98-107) mmol/L Carbon Dioxide 24 (22-30) mmol/L Anion Gap 13.1 (5-15) MEQ/L BUN 15 (9-20) mg/dL Creatinine 0.93 (0.66-1.25) mg/dL Estimated GFR > 60.0 ML/MIN Glucose 234 H (74-106) mg/dL Lactic Acid 2.0 (0.4-2.0) Calcium 9.3 (8.4-10.2) mg/dL Total Bilirubin 1.20 (0.2-1.3) mg/dL AST 16 L (17-59) U/L ALT 11 (0-50) U/L Alkaline Phosphatase 80 (38-126) U/L Serum Total Protein 7.5 (6.3-8.2) g/dL Albumin 4.3 (3.5-5.0) g/dL Amylase 47 (30-110) U/L Lipase 22 L (23-300) U/L Urine Color (YELLOW) Urine Appearance (CLEAR) Urine pH (5-6) Ur Specific [place] (1.005-1.025) Urine Protein (Negative) Urine Ketones (NEGATIVE) Urine Blood (0-5) Rodrigo/ul Urine Nitrite (NEGATIVE) Urine Bilirubin (NEGATIVE) Urine Urobilinogen (0-1) mg/dL Ur Leukocyte Esterase (NEGATIVE) Urine WBC (Auto) (0-5) /HPF Urine RBC (Auto) (0-2) /HPF U Epithel Cells (Auto) (FEW) /HPF Urine Bacteria (Auto) (NEGATIVE) /HPF Urine Mucus (Auto) (NEGATIVE) /HPF Urine Culture Reflexed (NO) Urine Glucose (NEGATIVE) mg/dL SARS-CoV-2 (PCR) (NEGATIVE) 02/28/20 02/28/20 02/28/20 Range/Units 19:43 21:32 22:05 WBC (4.0-10.5) K/mm3 RBC (4.1-5.6) M/mm3 Hgb (12.5-18.0) gm/dl Hct (42-50) % MCV (78-100) fl MCH (26-32) pg MCHC (32-36) g/dl RDW (11.5-14.0) % Plt Count (150-450) K/mm3 MPV (7.5-11.0) fl Gran % (36.0-66.0) % Eos # (Auto) (0-0.5) Absolute Lymphs (auto) (1.0-4.6) Absolute Monos (auto) (0.0-1.3) Lymphocytes % (24.0-44.0) % Monocytes % (0.0-12.0) % Eosinophils % (0.00-5.0) % Basophils % (0.0-0.4) % Absolute Granulocytes (1.4-6.9) Segmented Neutrophils (36.-66.) % Lymphocytes (Manual) (24-44) % Monocytes (Manual) (0.0-12.0) % Basophils # (0-0.4) Toxic Granulation Platelet Estimate (NORMAL) RBC Morphology Smear Path Review pO2/FiO2 Ratio 21.0 % VBG pH 7.51 H (7.32-7.42) VBG pCO2 at Pat Temp 33 L (42-55) mm/Hg VBG pO2 at Pat Temp 48 H (25-40) mm/Hg VBG HCO3 26.3 (22-28) meq/L VBG O2 Sat ([place]) 87.8 L (95-100) VBG Base Excess 3.6 H (-2.0-2.0) VBG Hemoglobin 17.2 VBG Carboxyhemoglobin 4.7 (0.0-6.9) % T HGB POC Potassium 3.9 (3.5-5.1) Sodium (137-145) mmol/L Potassium (3.5-5.1) mmol/L Chloride (98-107) mmol/L Carbon Dioxide (22-30) mmol/L Anion Gap (5-15) MEQ/L BUN (9-20) mg/dL Creatinine (0.66-1.25) mg/dL Estimated GFR ML/MIN Glucose (74-106) mg/dL Lactic Acid 1.1 (0.4-2.0) Calcium (8.4-10.2) mg/dL Total Bilirubin (0.2-1.3) mg/dL AST (17-59) U/L ALT (0-50) U/L Alkaline Phosphatase (38-126) U/L Serum Total Protein (6.3-8.2) g/dL Albumin (3.5-5.0) g/dL Amylase (30-110) U/L Lipase (23-300) U/L Urine Color TAHIRA (YELLOW) Urine Appearance CLEAR (CLEAR) Urine pH 6.0 (5-6) Ur Specific [place] 1.031 (1.005-1.025) Urine Protein 100 (Negative) Urine Ketones NEGATIVE (NEGATIVE) Urine Blood NEGATIVE (0-5) Rodrigo/ul Urine Nitrite NEGATIVE (NEGATIVE) Urine Bilirubin NEGATIVE (NEGATIVE) Urine Urobilinogen 2 (0-1) mg/dL Ur Leukocyte Esterase NEGATIVE (NEGATIVE) Urine WBC (Auto) NONE (0-5) /HPF Urine RBC (Auto) NONE (0-2) /HPF U Epithel Cells (Auto) NONE (FEW) /HPF Urine Bacteria (Auto) NONE SEEN (NEGATIVE) /HPF Urine Mucus (Auto) SLIGHT (NEGATIVE) /HPF Urine Culture Reflexed NO (NO) Urine Glucose >=500 (NEGATIVE) mg/dL SARS-CoV-2 (PCR) (NEGATIVE) 02/28/20 02/29/20 02/29/20 Range/Units 22:10 04:12 04:12 WBC 20.9 H (4.0-10.5) K/mm3 RBC 5.00 (4.1-5.6) M/mm3 Hgb 14.6 (12.5-18.0) gm/dl Hct 44.1 (42-50) % MCV 88.2 (78-100) fl MCH 29.2 (26-32) pg MCHC 33.1 (32-36) g/dl RDW 12.7 (11.5-14.0) % Plt Count 152 (150-450) K/mm3 MPV 11.2 H (7.5-11.0) fl Gran % 79.6 H (36.0-66.0) % Eos # (Auto) 0.03 (0-0.5) Absolute Lymphs (auto) 2.97 (1.0-4.6) Absolute Monos (auto) 1.25 (0.0-1.3) Lymphocytes % 14.2 L (24.0-44.0) % Monocytes % 6.0 (0.0-12.0) % Eosinophils % 0.1 (0.00-5.0) % Basophils % 0.1 (0.0-0.4) % Absolute Granulocytes 16.60 H (1.4-6.9) Segmented Neutrophils (36.-66.) % Lymphocytes (Manual) (24-44) % Monocytes (Manual) (0.0-12.0) % Basophils # 0.03 (0-0.4) Toxic Granulation Platelet Estimate (NORMAL) RBC Morphology Smear Path Review pO2/FiO2 Ratio % VBG pH (7.32-7.42) VBG pCO2 at Pat Temp (42-55) mm/Hg VBG pO2 at Pat Temp (25-40) mm/Hg VBG HCO3 (22-28) meq/L VBG O2 Sat ([place]) (95-100) VBG Base Excess (-2.0-2.0) VBG Hemoglobin VBG Carboxyhemoglobin (0.0-6.9) % T HGB POC Potassium (3.5-5.1) Sodium 131 L (137-145) mmol/L Potassium 3.6 (3.5-5.1) mmol/L Chloride 100 (98-107) mmol/L Carbon Dioxide 27 (22-30) mmol/L Anion Gap 8.5 (5-15) MEQ/L BUN 13 (9-20) mg/dL Creatinine 0.96 (0.66-1.25) mg/dL Estimated GFR > 60.0 ML/MIN Glucose 280 H (74-106) mg/dL Lactic Acid (0.4-2.0) Calcium 8.2 L (8.4-10.2) mg/dL Total Bilirubin 1.20 (0.2-1.3) mg/dL AST 12 L (17-59) U/L ALT 8 (0-50) U/L Alkaline Phosphatase 69 (38-126) U/L Serum Total Protein 6.4 (6.3-8.2) g/dL Albumin 3.5 (3.5-5.0) g/dL Amylase (30-110) U/L Lipase (23-300) U/L Urine Color (YELLOW) Urine Appearance (CLEAR) Urine pH (5-6) Ur Specific [place] (1.005-1.025) Urine Protein (Negative) Urine Ketones (NEGATIVE) Urine Blood (0-5) Rodrigo/ul Urine Nitrite (NEGATIVE) Urine Bilirubin (NEGATIVE) Urine Urobilinogen (0-1) mg/dL Ur Leukocyte Esterase (NEGATIVE) Urine WBC (Auto) (0-5) /HPF Urine RBC (Auto) (0-2) /HPF U Epithel Cells (Auto) (FEW) /HPF Urine Bacteria (Auto) (NEGATIVE) /HPF Urine Mucus (Auto) (NEGATIVE) /HPF Urine Culture Reflexed (NO) Urine Glucose (NEGATIVE) mg/dL SARS-CoV-2 (PCR) NEGATIVE (NEGATIVE) - Radiology Impressions Radiology Exams & Impressions: Radiology Procedures Category Date Time Status ABDOMEN AND PELVIS W/0 CONTRAS [CT] Stat Exams 02/28/20 19:44 Taken CHEST 1 VIEW (PORTABLE) Stat Exams 02/28/20 19:44 Taken - Other Procedures and Tests Respiratory Therapy 02/29/20 00:34 Peak Expiratory Flow Rate DAILY Respiratory Therapy Assessment DAILY Assessment/Plan (1) Bilateral pneumonia Current Visit: Yes Status: Acute Qualifiers: Pneumonia type: due to unspecified organism Lung location: unspecified part of lung Qualified Code(s): J18.9 - Pneumonia, unspecified organism Assessment & Plan: leukoctyosis with left shift consistent with bacterial pneumonia, covid swab negative. will continue zosyn at this time Code(s): J18.9 - PNEUMONIA, UNSPECIFIED ORGANISM (2) Type 2 diabetes mellitus Current Visit: Yes Status: Acute
--- NOTE | 2020-02-29 08:36 | XRAY ---
Exam: AP upright portable chest film from 02/28/2020. Comparison: 2 AP upright portable chest films from 11/21/2019. Indication: Rule out pneumonia; cough, fever, body aches, abdominal pain, vomiting. Findings: The transverse heart size appears within normal limits. The carole appear unremarkable. There is average inflation of the lungs. There is a new small airspace opacity at the mid left lung base centered near the left cardiophrenic angle as compared to the 2 prior AP portable chest films from 11/21/2019. I believe this represents a small focus of pneumonitis within the lingula. The left hemidiaphragm is not obscured. The remainder of the lung garza appears clear. There is equivocal evidence of slight blunting of the left costophrenic angle. No pneumothorax is seen. A metallic orthopedic screw is again seen projected over the lower aspect of the left shoulder. Correlate with prior surgical history. Impression: 1. Small focal airspace infiltrate at the left lung base centered near the left cardiophrenic angle which is new from 11/21/2019 and is most consistent with a small focal pneumonic infiltrate. This represents an unfavorable change from 11/21/2019. 2. No other acute cardiopulmonary process is seen.
[2020-02-29] MEDS: HUMALOG SQ PRN ×3 (08:44→17:57)
[2020-02-29] MEDS: Tussionex Pennkinetic Susp PO PRN (08:44)
[2020-02-29] MEDS: Sodium Chloride 0.9% 1000 ML 1,000 ML IV SCH ×3 (10:11→21:27)
[2020-02-29] MEDS: ENOXAPARIN SODIUM SQ SCH (10:13)
--- NOTE | 2020-02-29 11:20 | XRAY ---
Exam: CT of the abdomen and pelvis without IV contrast from 02/28/2020. CTDI: 5.78 mGy Comparison: None. Indication: 49-year-old male with generalized abdominal pain with vomiting, cough, fever, chills, congestion, body aches; painful urination, no history of renal stones or prior abdominal surgery. Technique: Non-IV contrast axial images were obtained through the abdomen and pelvis. No oral contrast was given. Reconstructed coronal and sagittal images were created and reviewed. Findings: The lung bases reveal a focally dense air space infiltrate within the anterior aspect of the left lower lobe at the left lung base. The infiltrate measuring approximately 5.5 cm in width and 5.6 cm in AP depth. This is consistent with left lower lobe pneumonia. I also see a calcified granuloma within the left posterior lung sulcus. No pleural fluid is seen. The heart size is normal. Mild respiratory motion artifact is seen on the upper abdominal images. No gross abnormality of the liver or spleen is seen on this non-IV contrast study. The gallbladder is of normal size and reveals no dense calcifications within it. The pancreas and adrenal glands appear unremarkable. The kidneys are of average size and shape. No renal calculi, hydronephrosis, or definite renal mass is seen. The abdominal aorta reveals no evidence of aneurysm. Minimal atherosclerotic vascular calcification is seen. No abnormal retroperitoneal lymphadenopathy is seen. There is no evidence of free intraperitoneal air or ventral anterior abdominal wall hernia. An unremarkable retrocecal appendix is seen. Scattered stool is seen throughout the colon. I see no evidence of bowel obstruction or definite bowel wall thickening. There is a 1.3 cm in width oval-shaped calcification within the anterior aspect of the mid pelvis near the midline. This probably represents a calcified granuloma or lymph node. The urinary bladder is partially distended and appears unremarkable. Calcified phleboliths are seen within the lower pelvis on each side of midline. The seminal vesicles and prostate gland appear unremarkable. There is no evidence of enlarged pelvic lymph nodes or free intraperitoneal fluid. The skeleton reveals no acute fracture or other aggressive bone lesion. A calcified bone island is seen within the posterior aspect of the right femoral neck as an incidental note. Minimal degenerative changes are seen within the lower thoracolumbar spine. Impression: 1. Focal airspace infiltrate is seen within the anterior segment of the left lower lobe at the left lung base consistent with pneumonia. There is no associated left pleural effusion. 2. Mild respiratory motion artifact is seen on the upper abdominal images. 3. Mild colonic stool retention without evidence of bowel obstruction. No free air or free fluid is seen. 4. No other acute process is seen within the abdomen or pelvis.
[2020-02-29] MEDS: Lantus Insulin SQ SCH ×2 (12:10→21:40)
[2020-02-29] MEDS: Neurontin 400 MG PO SCH ×2 (14:42→21:39)
[2020-02-29] MEDS: NORCO 5/325 MG PO PRN ×2 (14:43→19:51)
[2020-02-29] MEDS ORDERED: NON-FORMULARY ITEM (Gabapentin [Neurontin] 800 MG) PO SCH (15:00)
[2020-02-29] MEDS: OXYCODONE-ACETAMINOPHEN 10-325 PO PRN (21:39)
[2020-02-29] MEDS: Seroquel 100 MG PO SCH (21:40)
[2020-02-29] MEDS ORDERED: INSULIN DETEMIR 40 UNIT SQ SCH (22:00)
[2020-03-01] MEDS: Zosyn 3.375 GM Vial 3.375 GM in Sodium Chloride 100ML MINI-BAG PLUS 100 ML IV SCH ×4 (05:12→23:35)
[2020-03-01] MEDS: OXYCODONE-ACETAMINOPHEN 10-325 PO PRN ×4 (05:13→23:34)
[2020-03-01] MEDS: DUONEB 0.5-3 MG/3 ml Neb IH SCH ×4 (05:20→19:05)
[2020-03-01 06:55] LABS: Absolute Neutrophil Ct (ANC) 4.32 (1.4-6.9); BASOPHIL % 0.2 % (0.0-0.4); Basophil (Absolute #) 0.01 (0-0.4); Eosinophil % 1.8 % (0.00-5.0); Eosinophil (Absolute #) 0.12 (0-0.5); Hematocrit 41.4 % (42-50); Hemoglobin 13.3 gm/dl (12.5-18.0); Lymphocyte (Absolute #) 1.79 (1.0-4.6); Lymphocytes % 26.9 % (24.0-44.0); Mean Cell Volume 89.8 fl (78-100); Mean Corpuscular Hemoglobin 28.9 pg (26-32); Mean Corpuscular Hgb Concent. 32.1 g/dl (32-36); Mean Platelet Volume 11.4 fl (7.5-11.0); Monocyte (Absolute #) 0.42 (0.0-1.3); Monocytes % 6.3 % (0.0-12.0); Neutrophil % 64.8 % (36.0-66.0); Platelet Count 135 K/mm3 (150-450); Red Blood Count 4.61 M/mm3 (4.1-5.6); Red Cell Distribution Width 12.8 % (11.5-14.0); White Blood Count 6.7 K/mm3 (4.0-10.5)
[2020-03-01 07:01] LABS: ANION GAP 7.1 MEQ/L (5-15); BLOOD UREA NITROGEN 12 mg/dL (9-20); CHLORIDE 107 mmol/L (98-107); Calcium 8.4 mg/dL (8.4-10.2); Carbon Dioxide 26 mmol/L (22-30); Creatinine 1 0.83 mg/dL (0.66-1.25); EST GLOMERULAR FILTRATION RATE > 60.0 ML/MIN; Glucose 293 mg/dL (74-106); Potassium 3.4 mmol/L (3.5-5.1); SODIUM 137 mmol/L (137-145)
[2020-03-01] MEDS: HUMALOG SQ PRN ×2 (07:44→11:29)
--- NOTE | 2020-03-01 08:01 | PCM.NOTE ---
Date and Time: 03/01/20 0759 Subjective Assessment: still has cough with productive purulent sputum, he is having significant pain in left lower chest radiating through to the back, worse with cough or deep inspiration. Objective Exam General Appearance: no apparent distress, alert Respiratory Exam: rhonchi Cardiovascular Exam: regular rate/rhythm, normal heart sounds Gastrointestinal/Abdomen Exam: soft, No tenderness, No mass OBJECTIVE DATA Vital Signs: Vital Signs - 24 hr Temp Pulse Resp BP Pulse Ox 03/01/20 07:17 97.7 F 86 16 122/76 90 L 03/01/20 05:20 73 17 92 L 03/01/20 04:00 98.3 F 66 15 119/78 96 02/29/20 23:49 98.4 F 74 16 124/79 96 02/29/20 19:45 79 16 97 02/29/20 19:13 98.2 F 74 16 132/79 98 02/29/20 15:37 97.6 F 77 12 133/80 95 02/29/20 14:18 88 16 98 02/29/20 11:08 98.1 F 86 14 131/67 98 02/29/20 10:21 75 16 94 L Pain Assessment - Last Documented Pain Intensity 7 Pain Scale Used 0-10 Pain Scale Intake and Output: Intake & Output 02/27/20 02/28/20 02/29/20 03/01/20 11:59 11:59 11:59 11:59 Intake Total 689 4853 Output Total 500 Balance 189 4853 Weight 86.7 kg 87.7 kg Lab Results: Accuchecks Date 02/29/20 Time 21:26 Accucheck Value: 218 Accucheck Value: 239 Accucheck Value: 221 Lab Results-Last 24 Hours 02/29/20 02/29/20 02/29/20 Range/Units 11:05 15:52 21:02 WBC (4.0-10.5) K/mm3 RBC (4.1-5.6) M/mm3 Hgb (12.5-18.0) gm/dl Hct (42-50) % MCV (78-100) fl MCH (26-32) pg MCHC (32-36) g/dl RDW (11.5-14.0) % Plt Count (150-450) K/mm3 MPV (7.5-11.0) fl Gran % (36.0-66.0) % Eos # (Auto) (0-0.5) Absolute Lymphs (auto) (1.0-4.6) Absolute Monos (auto) (0.0-1.3) Lymphocytes % (24.0-44.0) % Monocytes % (0.0-12.0) % Eosinophils % (0.00-5.0) % Basophils % (0.0-0.4) % Absolute Granulocytes (1.4-6.9) Basophils # (0-0.4) Sodium (137-145) mmol/L Potassium (3.5-5.1) mmol/L Chloride (98-107) mmol/L Carbon Dioxide (22-30) mmol/L Anion Gap (5-15) MEQ/L BUN (9-20) mg/dL Creatinine (0.66-1.25) mg/dL Estimated GFR ML/MIN Glucose (74-106) mg/dL POC Glucometer 221 H 239 H 218 H (74 to 106) mg/dL Calcium (8.4-10.2) mg/dL 03/01/20 03/01/20 03/01/20 Range/Units 06:00 06:00 07:30 WBC 6.7 (4.0-10.5) K/mm3 RBC 4.61 (4.1-5.6) M/mm3 Hgb 13.3 (12.5-18.0) gm/dl Hct 41.4 L (42-50) % MCV 89.8 (78-100) fl MCH 28.9 (26-32) pg MCHC 32.1 (32-36) g/dl RDW 12.8 (11.5-14.0) % Plt Count 135 L (150-450) K/mm3 MPV 11.4 H (7.5-11.0) fl Gran % 64.8 (36.0-66.0) % Eos # (Auto) 0.12 (0-0.5) Absolute Lymphs (auto) 1.79 (1.0-4.6) Absolute Monos (auto) 0.42 (0.0-1.3) Lymphocytes % 26.9 (24.0-44.0) % Monocytes % 6.3 (0.0-12.0) % Eosinophils % 1.8 (0.00-5.0) % Basophils % 0.2 (0.0-0.4) % Absolute Granulocytes 4.32 (1.4-6.9) Basophils # 0.01 (0-0.4) Sodium 137 (137-145) mmol/L Potassium 3.4 L (3.5-5.1) mmol/L Chloride 107 (98-107) mmol/L Carbon Dioxide 26 (22-30) mmol/L Anion Gap 7.1 (5-15) MEQ/L BUN 12 (9-20) mg/dL Creatinine 0.83 (0.66-1.25) mg/dL Estimated GFR > 60.0 ML/MIN Glucose 293 H (74-106) mg/dL POC Glucometer 274 H (74 to 106) mg/dL Calcium 8.4 (8.4-10.2) mg/dL Radiology Exams: Radiology Procedures Category Date Time Status ABDOMEN AND PELVIS W/0 CONTRAS [CT] Stat Exams 02/28/20 19:44 Completed CHEST 1 VIEW (PORTABLE) Stat Exams 02/28/20 19:44 Completed Assessment/Plan (1) Bilateral pneumonia Current Visit: Yes Status: Acute Qualifiers: Pneumonia type: due to unspecified organism Lung location: unspecified part of lung Qualified Code(s): J18.9 - Pneumonia, unspecified organism Assessment & Plan: stable, wbc normalized and clinically improving on exam. likely home tomorrow if remains fever-free, wbc remains normal and pain and cough are improving. Code(s): J18.9 - PNEUMONIA, UNSPECIFIED ORGANISM (2) Type 2 diabetes mellitus Current Visit: Yes Status: Acute
[2020-03-01] MEDS: Sodium Chloride 0.9% 1000 ML 1,000 ML IV SCH ×2 (09:54→23:35)
[2020-03-01] MEDS: Pepcid 20 MG VIAL IV SCH ×2 (09:55→22:50)
[2020-03-01] MEDS: Lantus Insulin SQ SCH ×2 (09:56→22:50)
[2020-03-01] MEDS: Neurontin 400 MG PO SCH ×3 (09:56→22:50)
[2020-03-01] MEDS: ENOXAPARIN SODIUM SQ SCH (09:56)
[2020-03-01] MEDS: Tussionex Pennkinetic Susp PO PRN ×2 (10:06→23:34)
[2020-03-01] MEDS: Seroquel 100 MG PO SCH (22:50)
[2020-03-02] MEDS: OXYCODONE-ACETAMINOPHEN 10-325 PO PRN ×3 (05:25→18:10)
[2020-03-02 06:44] LABS: Absolute Neutrophil Ct (ANC) 2.53 (1.4-6.9); BASOPHIL % 0.2 % (0.0-0.4); Basophil (Absolute #) 0.01 (0-0.4); Eosinophil % 2.6 % (0.00-5.0); Eosinophil (Absolute #) 0.12 (0-0.5); Hemoglobin 12.4 gm/dl (12.5-18.0); Lymphocyte (Absolute #) 1.76 (1.0-4.6); Lymphocytes % 37.6 % (24.0-44.0); Mean Cell Volume 91.3 fl (78-100); Mean Corpuscular Hgb Concent. 31.8 g/dl (32-36); Mean Platelet Volume 10.8 fl (7.5-11.0); Monocyte (Absolute #) 0.26 (0.0-1.3); Monocytes % 5.6 % (0.0-12.0); Platelet Count 136 K/mm3 (150-450); Red Blood Count 4.27 M/mm3 (4.1-5.6); Red Cell Distribution Width 12.8 % (11.5-14.0); White Blood Count 4.7 K/mm3 (4.0-10.5)
[2020-03-02] MEDS: Zosyn 3.375 GM Vial 3.375 GM in Sodium Chloride 100ML MINI-BAG PLUS 100 ML IV SCH ×3 (06:47→18:11)
[2020-03-02 07:01] LABS: ANION GAP 8.1 MEQ/L (5-15); BLOOD UREA NITROGEN 7 mg/dL (9-20); CHLORIDE 108 mmol/L (98-107); Calcium 8.6 mg/dL (8.4-10.2); Carbon Dioxide 27 mmol/L (22-30); Creatinine 1 0.75 mg/dL (0.66-1.25); EST GLOMERULAR FILTRATION RATE > 60.0 ML/MIN; Glucose 174 mg/dL (74-106); Potassium 3.3 mmol/L (3.5-5.1); SODIUM 139 mmol/L (137-145)
[2020-03-02] MEDS: DUONEB 0.5-3 MG/3 ml Neb IH SCH ×4 (07:45→19:19)
[2020-03-02] MEDS: Neurontin 400 MG PO SCH ×3 (10:30→22:08)
[2020-03-02] MEDS: Lantus Insulin SQ SCH ×2 (10:31→22:10)
[2020-03-02] MEDS: ENOXAPARIN SODIUM SQ SCH (10:32)
[2020-03-02] MEDS: Pepcid 20 MG VIAL IV SCH ×2 (10:38→22:09)
[2020-03-02] MEDS: HUMALOG SQ PRN ×3 (12:48→22:09)
[2020-03-02] MEDS: Tussionex Pennkinetic Susp PO PRN (14:18)
--- NOTE | 2020-03-02 17:23 | PCM.NOTE ---
Date and Time: 03/02/20 171 Subjective Assessment: Pt states he sometimes feels better then will feel "terrible" again. He is complaining of pain in the L flank and L lower anterior ribs that is deep, "like a nerve," and constant, from 6-10. Pt also c/o watery diarrhea for the past 4 months. - Review of Systems Constitutional: No Fever Musculoskeletal: Back Pain Objective Exam General Appearance: mild distress, alert Neurologic Exam: oriented x 3, cooperative Skin Exam: normal color, warm, dry, No rash Ears, Nose, Throat Exam: moist mucous membranes Neck Exam: normal inspection Respiratory Exam: normal breath sounds, crackles/rales (LLL), other (L flank and L lower ribs nttp, no crepitus or lesions), No rhonchi, No wheezing Cardiovascular Exam: regular rate/rhythm, normal heart sounds, No murmur Gastrointestinal/Abdomen Exam: soft, normal bowel sounds, No tenderness, No distention, No mass, No guarding, No rebound Extremity Exam: other (R knee grossly edematous with well healed surgical scar. Trace RLE pretibial edema; no LLE edema.) OBJECTIVE DATA Vital Signs: Vital Signs - 24 hr Temp Pulse Resp BP Pulse Ox 03/02/20 16:00 98.2 F 66 18 148/84 98 03/02/20 14:25 71 14 98 03/02/20 12:00 97.6 F 74 20 161/89 100 03/02/20 11:05 68 16 97 03/02/20 07:47 83 14 94 L 03/02/20 07:24 97.8 F 57 L 20 141/85 97 03/02/20 04:00 97.4 F 60 18 132/86 96 03/02/20 00:00 16 03/01/20 20:00 98.2 F 73 15 160/89 99 03/01/20 19:30 66 18 98 Pain Assessment - Last Documented Pain Intensity 8 Pain Scale Used [facility] Intake and Output: Intake & Output 02/29/20 03/01/20 03/02/20 03/03/20 11:59 11:59 11:59 11:59 Intake Total 672 0421 1488 480 Output Total 500 350 700 Balance 189 4213 8162 480 Weight 86.7 kg 87.7 kg 92.1 kg Lab Results: Accuchecks Date 03/02/20 Date 03/02/20 Date 03/01/20 Time 11:30 Time 07:30 Time 22:50 Accucheck Value: 232 Accucheck Value: 165 Accucheck Value: 241 Lab Results-Last 24 Hours 03/01/20 03/02/20 03/02/20 Range/Units 22:49 06:01 06:01 WBC 4.7 (4.0-10.5) K/mm3 RBC 4.27 (4.1-5.6) M/mm3 Hgb 12.4 L (12.5-18.0) gm/dl Hct 39.0 L (42-50) % MCV 91.3 (78-100) fl MCH 29.0 (26-32) pg MCHC 31.8 L (32-36) g/dl RDW 12.8 (11.5-14.0) % Plt Count 136 L (150-450) K/mm3 MPV 10.8 (7.5-11.0) fl Gran % 54.0 (36.0-66.0) % Eos # (Auto) 0.12 (0-0.5) Absolute Lymphs (auto) 1.76 (1.0-4.6) Absolute Monos (auto) 0.26 (0.0-1.3) Lymphocytes % 37.6 (24.0-44.0) % Monocytes % 5.6 (0.0-12.0) % Eosinophils % 2.6 (0.00-5.0) % Basophils % 0.2 (0.0-0.4) % Absolute Granulocytes 2.53 (1.4-6.9) Basophils # 0.01 (0-0.4) Sodium 139 (137-145) mmol/L Potassium 3.3 L (3.5-5.1) mmol/L Chloride 108 H (98-107) mmol/L Carbon Dioxide 27 (22-30) mmol/L Anion Gap 8.1 (5-15) MEQ/L BUN 7 L (9-20) mg/dL Creatinine 0.75 (0.66-1.25) mg/dL Estimated GFR > 60.0 ML/MIN Glucose 174 H (74-106) mg/dL POC Glucometer 241 H (74 to 106) mg/dL Calcium 8.6 (8.4-10.2) mg/dL 03/02/20 03/02/20 03/02/20 Range/Units 06:24 12:38 16:34 WBC (4.0-10.5) K/mm3 RBC (4.1-5.6) M/mm3 Hgb (12.5-18.0) gm/dl Hct (42-50) % MCV (78-100) fl MCH (26-32) pg MCHC (32-36) g/dl RDW (11.5-14.0) % Plt Count (150-450) K/mm3 MPV (7.5-11.0) fl Gran % (36.0-66.0) % Eos # (Auto) (0-0.5) Absolute Lymphs (auto) (1.0-4.6) Absolute Monos (auto) (0.0-1.3) Lymphocytes % (24.0-44.0) % Monocytes % (0.0-12.0) % Eosinophils % (0.00-5.0) % Basophils % (0.0-0.4) % Absolute Granulocytes (1.4-6.9) Basophils # (0-0.4) Sodium (137-145) mmol/L Potassium (3.5-5.1) mmol/L Chloride (98-107) mmol/L Carbon Dioxide (22-30) mmol/L Anion Gap (5-15) MEQ/L BUN (9-20) mg/dL Creatinine (0.66-1.25) mg/dL Estimated GFR ML/MIN Glucose (74-106) mg/dL POC Glucometer 165 H 232 H 257 H (74 to 106) mg/dL Calcium (8.4-10.2) mg/dL Assessment/Plan (1) Bilateral pneumonia Current Visit: Yes Status: Acute Qualifiers: Pneumonia type: due to unspecified organism Lung location: unspecified part of lung Qualified Code(s): J18.9 - Pneumonia, unspecified organism Assessment & Plan: on zosyn day #3. His leukocytosis has resolved. He is afebrile; however his pain and cough aren't better and Dr. Bryant did think those should be improved before pt discharged to home. Code(s): J18.9 - PNEUMONIA, UNSPECIFIED ORGANISM (2) Back pain Current Visit: Yes Status: Acute Qualifiers: Back pain location: back pain in other location Chronicity: acute Qualified Code(s): M54.9 - Dorsalgia, unspecified Code(s): M54.9 - DORSALGIA, UNSPECIFIED (3) Chronic diarrhea Current Visit: Yes Status: Acute Assessment & Plan: may have some acute diarrhea superimposed - GI pathogen panel pending. Add lactobacillus. 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
[2020-03-02] MEDS: Sodium Chloride 0.9% 1000 ML 1,000 ML IV SCH (18:12)
[2020-03-02] MEDS: Augmentin 875-125 Tablet PO SCH (22:08)
[2020-03-02] MEDS: Acidophilus TABLET PO SCH (22:08)
[2020-03-02] MEDS: Seroquel 100 MG PO SCH (22:09)
[2020-03-03] MEDS: OXYCODONE-ACETAMINOPHEN 10-325 PO PRN ×2 (00:12→07:36)
[2020-03-03] MEDS: Tussionex Pennkinetic Susp PO PRN (02:36)
[2020-03-03] MEDS: DUONEB 0.5-3 MG/3 ml Neb IH SCH ×2 (07:30→11:37)
[2020-03-03] MEDS: Augmentin 875-125 Tablet PO SCH (09:29)
[2020-03-03] MEDS: Acidophilus TABLET PO SCH (09:29)
[2020-03-03] MEDS: Neurontin 400 MG PO SCH (09:29)
[2020-03-03] MEDS: ENOXAPARIN SODIUM SQ SCH (09:30)
[2020-03-03] MEDS: Lantus Insulin SQ SCH (09:31)
[2020-03-03] MEDS: Pepcid 20 MG VIAL IV SCH (09:34)
--- NOTE | 2020-03-03 11:29 | PCM.DS ---
Discharge Summary Date of Admission: 02/28/20 23:57 Admitting Physician: BRANDY HARRIS Primary Care Provider: HARLEY LOUIS Allergies Allergies No Known Drug Allergies Allergy (Verified 02/29/20 00:19) Hospital Summary - Hospital Course Hospital Course: Pt is a 49 yo male with diabetes who was admitted with bilateral pneumonia, COVID neg. Completed 3d of IV zosyn, then his IV went bad last night and he was changed to po augmentin. Has been afebrile for the past 2 days. He was kept yesterday due to persistent chest/back pain with cough; however he is tolerating po and doing well on po pain meds so will be discharged to home today on nebulizer treatments and augmentin (to finish 14d total antibiotic). Pt does c/o chronic diarrhea but did not apparently produce a useable stool specimen since I ordered the GI pathogen panel yesterday (will advise stay on probiotic while on antibiotics). F/u with PCP in 1 week. - Vitals & Intake/Output Vital Signs: Vital Signs Temperature 97.7 F 03/03/20 08:00 Pulse Rate 73 03/03/20 08:00 Respiratory Rate 20 03/03/20 08:00 Blood Pressure 138/90 03/03/20 08:00 O2 Sat by Pulse Oximetry 96 03/03/20 08:00 Intake & Output: Intake & Output 02/29/20 03/01/20 03/02/20 03/03/20 11:59 11:59 11:59 11:59 Intake Total 689 6293 3112 2788 Output Total 500 039 884 9902 Balance 189 5943 2412 1038 Weight 86.7 kg 87.7 kg 92.1 kg 94.2 kg - Lab Result Diagrams: 03/02/20 06:01 03/02/20 06:01 Lab Results-Last 24 Hrs: Accuchecks Date 03/03/20 Date 03/02/20 Date 03/02/20 Date 03/02/20 Time 07:30 Time 20:30 Time 16:30 Time 11:30 Accucheck Value: 95 Accucheck Value: 255 Accucheck Value: 257 Accucheck Value: 232 Lab Results-Last 24 Hours 03/02/20 03/02/20 03/02/20 Range/Units 12:38 16:34 20:27 POC Glucometer 232 H 257 H 255 H (74 to 106) mg/dL 03/03/20 Range/Units 07:12 POC Glucometer 95 (74 to 106) mg/dL Micro Results-Entire Visit: Microbiology 02/29/20 00:00 Blood Culture - Preliminary Blood NO GROWTH TO DATE Accuchecks Date 03/03/20 Date 03/02/20 Date 03/02/20 Date 03/02/20 Time 07:30 Time 20:30 Time 16:30 Time 11:30 Accucheck Value: 95 Accucheck Value: 255 Accucheck Value: 257 Accucheck Value: 232 - Procedures and Test Procedures and Tests throughout Hospitalization: Therapy Orders & Screens 02/29/20 00:01 Respiratory Therapy Consult ROUTINE Comment: Reason For Exam: 02/29/20 00:34 Peak Expiratory Flow Rate DAILY Comment: Reason For Exam: Respiratory Therapy Assessment DAILY Comment: Discharge Exam General Appearance: no apparent distress, alert Neurologic Exam: oriented x 3, cooperative Eye Exam: eyes nml inspection Ears, Nose, Throat Exam: moist mucous membranes Neck Exam: normal inspection Respiratory Exam: normal breath sounds, lungs clear, wheezing (faint LLL) Cardiovascular Exam: regular rate/rhythm, normal heart sounds, No murmur Gastrointestinal/Abdomen Exam: soft, normal bowel sounds, No tenderness Extremity Exam: normal inspection, No swelling, No tenderness Skin Exam: normal color, warm, dry, No rash Final Diagnosis/Problem List - Final Discharge Diagnosis/Problem (1) Bilateral pneumonia Current Visit: Yes Status: Acute Assessment & Plan: With some persistent wheezing. Afebrile. Home on augmentin x 10 more days. Nebulizer QID x 7d. Code(s): J18.9 - PNEUMONIA, UNSPECIFIED ORGANISM (2) Back pain Current Visit: Yes Status: Acute Assessment & Plan: should improve as PNA improves. Chireno sent TID x 5d (INSPECT appropriate today 03/03/20). Code(s): M54.9 - DORSALGIA, UNSPECIFIED (3) Chronic diarrhea Current Visit: Yes Status: Acute Assessment & Plan: f/u with Lynette Louis. Code(s): K52.9 - NONINFECTIVE GASTROENTERITIS AND COLITIS, UNSPECIFIED (4) Type 2 diabetes mellitus Current Visit: Yes Status: Chronic - Discharge Disposition: Home, Self-Care Condition: Stable Prescriptions: New Lactobacillus Acidophilus [Acidophilus TABLET] 1 tab PO TID #30 tablet Amox Tr/Potass Clav. 875 mg [Augmentin 875-125 Tablet] 875 mg PO Q12H #20 tablet Hydrocodone/APAP 10/325 mg [[place]reno 10/325 MG Tablet] 1 tab PO TID PRN 5 Days #15 tablet MDD 3 PRN Reason: Severe Pain Albuterol 2.5 mg/3 ml Neb [Proventil 2.5 mg/3 ml Neb] 2.5 mg IH QID #40 neb Continue Insulin Detemir [Levemir] 40 units SQ BID Gabapentin [Neurontin] 800 mg PO TID Dulaglutide [Trulicity] 1.5 mg SQ WEEKLY Quetiapine Fumarate 100 mg [Seroquel 100 MG] 200 mg PO HS Follow up with: HARLEY LOUIS NP [Primary Care Provider] - 1 Week
[2020-03-03 12:31] VITALS: BP 133/87; PULSE 81; O2SAT 98
== END 2020-03-03 12:50 | disposition home or self-care (01) | DRG 195 ==
LOC: ED 18:58 → MED SURG 23:57
PROVIDERS: ADMIT Family Medicine; ATTEND Family Medicine
DX: J18.9 Pneumonia, unspecified organism (principal); R11.2 Nausea with vomiting, unspecified; R19.7 Diarrhea, unspecified; R10.9 Unspecified abdominal pain; R05 Cough; M54.9 Dorsalgia, unspecified; R53.83 Other fatigue; R51 Headache; E11.9 Type 2 diabetes mellitus without complications; Z79.899 Other long term (current) drug therapy
CPT/HCPCS: 36415; 74176; 80048; 80053; 81001; 82150; 82805; 82962; 83036; 83605; 83690; 85025; 87040; 94150; 94640; 94760; 96360; 96365; 96374; 96375; 99291; U0003; 36000; 71045; 99284; J1650; J1817; J2270; J2405; A9270-GY

== ENCOUNTER 2020-04-24 09:37 | Inpatient (IN) | payer MEDICARE ==
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
[2020-04-24] MEDS ORDERED: Zofran 4 MG/2 ML VIAL IV ONE (10:26)
[2020-04-24] MEDS ORDERED: Sodium Chloride 0.9% 1000 ML 1,000 ML IV STA ×2 (10:26→11:59)
[2020-04-24] MEDS ORDERED: Zofran 4 MG/2 ML VIAL ONE (10:30)
[2020-04-24] MEDS ORDERED: Sodium Chloride 0.9% 1000 ML 0 ML ONE (10:30)
[2020-04-24] MEDS ORDERED: Hydromorphone 1 mg/ml Injection IV ONE ×2 (10:33→12:22)
[2020-04-24] MEDS ORDERED: Hydromorphone 1 mg/ml Injection ONE ×2 (10:33→12:38)
[2020-04-24 11:23] LABS: Appearance CLEAR (CLEAR); Bilirubin NEGATIVE (NEGATIVE); Blood NEGATIVE Ery/ul (0-5); Glucose >=500 mg/dL (NEGATIVE); Ketones MODERATE (NEGATIVE); Leukocyte Esterase NEGATIVE (NEGATIVE); Nitrite NEGATIVE (NEGATIVE); Protein,Urine Dip 30 (Negative); Specific Gravity 1.035 (1.005-1.025); Urobilinogen NEGATIVE mg/dL (0-1)
[2020-04-24 11:27] LABS: BASOPHIL % 0.5 % (0.0-0.4); Basophil (Absolute #) 0.03 (0-0.4); Eosinophil % 1.4 % (0.00-5.0); Eosinophil (Absolute #) 0.09 (0-0.5); Hematocrit 47.4 % (42-50); Hemoglobin 15.9 gm/dl (12.5-18.0); Lymphocyte (Absolute #) 2.17 (1.0-4.6); Lymphocytes % 33.2 % (24.0-44.0); Mean Cell Volume 87.1 fl (78-100); Mean Corpuscular Hemoglobin 29.2 pg (26-32); Mean Corpuscular Hgb Concent. 33.5 g/dl (32-36); Mean Platelet Volume 11.5 fl (7.5-11.0); Monocyte (Absolute #) 0.54 (0.0-1.3); Monocytes % 8.3 % (0.0-12.0); Neutrophil % 56.6 % (36.0-66.0); Platelet Count 180 K/mm3 (150-450); Red Blood Count 5.44 M/mm3 (4.1-5.6); Red Cell Distribution Width 13.1 % (11.5-14.0); White Blood Count 6.5 K/mm3 (4.0-10.5)
[2020-04-24 11:32] LABS: Bacteria RARE /HPF (NEGATIVE); Epithelial Cells RARE /HPF (FEW); RBC 0-2 /HPF (0-2); WBC 0-2 /HPF (0-5)
[2020-04-24 11:43] LABS: ALBUMIN 4.3 g/dL (3.5-5.0); ALKALINE PHOSPHATASE 84 U/L (38-126); AMYLASE 149 U/L (30-110); ANION GAP 14.9 MEQ/L (5-15); BLOOD UREA NITROGEN 15 mg/dL (9-20); CHLORIDE 100 mmol/L (98-107); Calcium 9.5 mg/dL (8.4-10.2); Carbon Dioxide 24 mmol/L (22-30); Creatinine 1 0.66 mg/dL (0.66-1.25); EST GLOMERULAR FILTRATION RATE > 60.0 ML/MIN; Glucose 316 mg/dL (74-106); LIPASE 575 U/L (23-300); Potassium 4.3 mmol/L (3.5-5.1); SGOT/AST 15 U/L (17-59); SGPT/ALT 9 U/L (0-50); SODIUM 134 mmol/L (137-145); Total Protein 7.2 g/dL (6.3-8.2)
--- NOTE | 2020-04-24 11:45 | XRAY ---
Indication: Midabdomen pain. Nausea, vomiting, diarrhea. Multiple contiguous axial images obtained through the abdomen and pelvis without contrast as ordered. Comparison: February 28, 2020. Lung bases demonstrate stable left posterior gutter calcified granuloma and minimal right base fibrosis/scarring. No infiltrate or effusion. Heart is not enlarged. Noncontrasted stomach and bowel loops remain nonobstructed. Normal appendix. No free fluid/air. Stable 1.3 cm benign-appearing well-circumscribed calcification anterior mid pelvis. Remaining liver, gallbladder, pancreas, spleen, adrenal glands, kidneys, ureters, bladder, and aorta appear unremarkable for noncontrast exam. Osseous structures intact again with minimal degenerative changes throughout the spine. Impression: Continued nonacute CT abdomen/pelvis without contrast exam with incidental chronic findings.
[2020-04-24] MEDS ORDERED: Sodium Chloride 0.9% 1000 ML 1,000 ML ONE ×2 (11:48→12:03)
[2020-04-24] MEDS ORDERED: HUMULIN R IV ONE (12:23)
[2020-04-24] MEDS ORDERED: HUMULIN R ONE (12:37)
[2020-04-24] MEDS ORDERED: HUMALOG SQ PRN (13:09)
[2020-04-24] MEDS ORDERED: TYLENOL 325 MG PO PRN (13:09)
[2020-04-24] MEDS: Sodium Chloride 0.9% 1000 ML 1,000 ML IV SCH ×2 (13:31→20:15)
[2020-04-24] MEDS: Hydromorphone 1 mg/ml Injection IV PRN ×2 (14:31→18:31)
[2020-04-24] MEDS: Zofran 4 MG/2 ML VIAL IV PRN ×2 (14:31→20:34)
[2020-04-24] MEDS ORDERED: NON-FORMULARY ITEM (Gabapentin [Neurontin] 800 MG) PO SCH (15:00)
[2020-04-24] MEDS: Lantus Insulin SQ SCH (15:05)
[2020-04-24] MEDS: Neurontin 400 MG PO SCH ×2 (15:05→21:32)
--- NOTE | 2020-04-24 15:48 | PCM.HP ---
History of Present Illness - Chief Complaint Chief Complaint: PANCREATITIS, VOMITING, DIARRHEA, DKA History of Present Illness: is a 50 year old male with a 3 week history of persistent nausea and vomiting and diarrhea. He reports he ran out of all of his meds about 5 days ago but these symptoms were present long before his meds went missing. He describes generalized epigastric pain that radiates lower in the abdomen. He states everything he eats either comes right up with vomiting or seems to go right through him with diarrhea. No fever, no other similar illness in the past. He states he has lost weight significantly, has a prior history of IV drug use so was afraid he might have HIV or hepatitis although he states he has been checked for those in the past and was negative, he denies any alcohol use at all and no recent drug use. - Review of Systems Constitutional: No Fever, No Chills Respiratory: No Cough, No Short Of Breath Cardiac: No Chest Pain, No Edema, No Syncope Abdominal/Gastrointestinal: Abdominal Pain, Nausea, Vomiting, Diarrhea Genitourinary Symptoms: No Dysuria Skin: No Rash Neurological: No Dizziness, No Focal Weakness, No Sensory Changes All Other Systems: Reviewed and Negative Medications & Allergies Home Medications: Home Medication List Dulaglutide [Trulicity] 1.5 mg SQ WEEKLY 02/28/20 [History Confirmed 04/24/20] Gabapentin [Neurontin] 800 mg PO TID 02/28/20 [History Confirmed 04/24/20] Insulin Detemir [Levemir] 40 units SQ BID 02/28/20 [History Confirmed 04/24/20] Quetiapine Fumarate 100 mg [Seroquel 100 MG] 200 mg PO HS 02/29/20 [History Confirmed 04/24/20] Insulin Lispro [Humalog] 1 unit SQ UD 04/24/20 [History Confirmed 04/24/20] Allergies/Adverse Reactions: Allergies Allergy/AdvReac Type Severity Reaction Status Date / Time No Known Drug Allergies Allergy Verified 04/24/20 13:18 - Past Medical History Past Medical History: Yes Neurological History: No Pertinent History ENT History: No Pertinent History Cardiac History: No Pertinent History Respiratory History: Pneumonia Endocrine Medical History: Diabetes Type II Musculoskelatal History: Arthritis GI Medical History: No Pertinent History History: No Pertinent History Pyscho-Social History: Depression Male Reproductive Disorders: No Pertinent History - Past Surgical History Past Surgical History: Yes Neuro Surgical History: No Pertinent History Cardiac History: No Pertinent History Respiratory Surgery: No Pertinent History GI Surgical History: No Pertinent History Genitourinary Surgical Hx: No Pertinent History Musculskeletal Surgical Hx: Orthopedic Surgery Male Surgical History: No Pertinent History Other Surgical History: 2 knee replacements right knee. Left shoulder surgery - Social History Smoking Status: Former smoker How long have you smoked: 20 years Exposure to second hand smoke: No Alcohol: None Drug Use: none - Physical Exam Vital Signs: Vital Signs - 24 hr Temp Pulse Resp BP Pulse Ox 04/24/20 13:47 99 04/24/20 13:11 98.0 F 80 18 165/98 97 04/24/20 12:53 78 20 136/88 98 04/24/20 12:05 98.1 F 76 20 136/88 98 04/24/20 11:18 98.0 F 84 18 141/90 98 04/24/20 10:39 98.0 F 90 20 145/96 98 04/24/20 09:47 98.0 F 94 H 20 167/98 99 General Appearance: no apparent distress Neurologic Exam: alert, oriented x 3, cooperative Neck Exam: non-tender, supple Respiratory Exam: normal breath sounds, lungs clear, No respiratory distress Cardiovascular Exam: regular rate/rhythm, normal heart sounds, normal peripheral pulses Gastrointestinal/Abdomen Exam: soft, tenderness (epigastrium), No distention, No guarding, No rebound, No hepatomegaly Extremity Exam: normal inspection, normal range of motion, pelvis stable Skin Exam: normal color, warm, dry, No rash Results - Labs Lab/Micro Results: Lab Results-Last 24 Hours 04/24/20 04/24/20 04/24/20 Range/Units 10:20 10:20 10:39 WBC 6.5 (4.0-10.5) K/mm3 RBC 5.44 (4.1-5.6) M/mm3 Hgb 15.9 (12.5-18.0) gm/dl Hct 47.4 (42-50) % MCV 87.1 (78-100) fl MCH 29.2 (26-32) pg MCHC 33.5 (32-36) g/dl RDW 13.1 (11.5-14.0) % Plt Count 180 (150-450) K/mm3 MPV 11.5 H (7.5-11.0) fl Gran % 56.6 (36.0-66.0) % Eos # (Auto) 0.09 (0-0.5) Absolute Lymphs (auto) 2.17 (1.0-4.6) Absolute Monos (auto) 0.54 (0.0-1.3) Lymphocytes % 33.2 (24.0-44.0) % Monocytes % 8.3 (0.0-12.0) % Eosinophils % 1.4 (0.00-5.0) % Basophils % 0.5 (0.0-0.4) % Absolute Granulocytes 3.70 (1.4-6.9) Basophils # 0.03 (0-0.4) Sodium 134 L (137-145) mmol/L Potassium 4.3 (3.5-5.1) mmol/L Chloride 100 (98-107) mmol/L Carbon Dioxide 24 (22-30) mmol/L Anion Gap 14.9 (5-15) MEQ/L BUN 15 (9-20) mg/dL Creatinine 0.66 (0.66-1.25) mg/dL Estimated GFR > 60.0 ML/MIN Glucose 316 H (74-106) mg/dL Lactic Acid 1.0 (0.4-2.0) Calcium 9.5 (8.4-10.2) mg/dL Total Bilirubin 0.70 (0.2-1.3) mg/dL AST 15 L (17-59) U/L ALT 9 (0-50) U/L Alkaline Phosphatase 84 (38-126) U/L Serum Total Protein 7.2 (6.3-8.2) g/dL Albumin 4.3 (3.5-5.0) g/dL Amylase 149 H (30-110) U/L Lipase 575 H (23-300) U/L Urine Color (YELLOW) Urine Appearance (CLEAR) Urine pH (5-6) Ur Specific [place] (1.005-1.025) Urine Protein (Negative) Urine Ketones (NEGATIVE) Urine Blood (0-5) Rodrigo/ul Urine Nitrite (NEGATIVE) Urine Bilirubin (NEGATIVE) Urine Urobilinogen (0-1) mg/dL Ur Leukocyte Esterase (NEGATIVE) Urine WBC (Auto) (0-5) /HPF Urine RBC (Auto) (0-2) /HPF U Epithel Cells (Auto) (FEW) /HPF Urine Bacteria (Auto) (NEGATIVE) /HPF Urine Culture Reflexed (NO) Urine Glucose (NEGATIVE) mg/dL 04/24/20 Range/Units 11:09 WBC (4.0-10.5) K/mm3 RBC (4.1-5.6) M/mm3 Hgb (12.5-18.0) gm/dl Hct (42-50) % MCV (78-100) fl MCH (26-32) pg MCHC (32-36) g/dl RDW (11.5-14.0) % Plt Count (150-450) K/mm3 MPV (7.5-11.0) fl Gran % (36.0-66.0) % Eos # (Auto) (0-0.5) Absolute Lymphs (auto) (1.0-4.6) Absolute Monos (auto) (0.0-1.3) Lymphocytes % (24.0-44.0) % Monocytes % (0.0-12.0) % Eosinophils % (0.00-5.0) % Basophils % (0.0-0.4) % Absolute Granulocytes (1.4-6.9) Basophils # (0-0.4) Sodium (137-145) mmol/L Potassium (3.5-5.1) mmol/L Chloride (98-107) mmol/L Carbon Dioxide (22-30) mmol/L Anion Gap (5-15) MEQ/L BUN (9-20) mg/dL Creatinine (0.66-1.25) mg/dL Estimated GFR ML/MIN Glucose (74-106) mg/dL Lactic Acid (0.4-2.0) Calcium (8.4-10.2) mg/dL Total Bilirubin (0.2-1.3) mg/dL AST (17-59) U/L ALT (0-50) U/L Alkaline Phosphatase (38-126) U/L Serum Total Protein (6.3-8.2) g/dL Albumin (3.5-5.0) g/dL Amylase (30-110) U/L Lipase (23-300) U/L Urine Color YELLOW (YELLOW) Urine Appearance CLEAR (CLEAR) Urine pH 6.0 (5-6) Ur Specific [place] 1.035 (1.005-1.025) Urine Protein 30 (Negative) Urine Ketones MODERATE (NEGATIVE) Urine Blood NEGATIVE (0-5) Rodrigo/ul Urine Nitrite NEGATIVE (NEGATIVE) Urine Bilirubin NEGATIVE (NEGATIVE) Urine Urobilinogen NEGATIVE (0-1) mg/dL Ur Leukocyte Esterase NEGATIVE (NEGATIVE) Urine WBC (Auto) 0-2 (0-5) /HPF Urine RBC (Auto) 0-2 (0-2) /HPF U Epithel Cells (Auto) RARE (FEW) /HPF Urine Bacteria (Auto) RARE (NEGATIVE) /HPF Urine Culture Reflexed NO (NO) Urine Glucose >=500 (NEGATIVE) mg/dL - Radiology Impressions Radiology Exams & Impressions: Radiology Procedures Category Date Time Status ABDOMEN AND PELVIS W/0 CONTRAS [CT] Stat Exams 04/24/20 10:26 Completed GALLBLADDER [US] Routine Exams 04/25/20 08:00 Ordered Assessment/Plan (1) Acute pancreatitis Current Visit: Yes Status: Acute Assessment & Plan: clear liquids, gallbladder ultrasound and repeat enzymes in the am. Code(s): K85.90 - ACUTE PANCREATITIS WITHOUT NECROSIS OR INFECTION, UNSP (2) Dehydration Current Visit: Yes Status: Acute Assessment & Plan: replacing fluid volume Code(s): E86.0 - DEHYDRATION (3) Vomiting and diarrhea Current Visit: Yes Status: Acute Assessment & Plan: check hepatitis panel and HIV secondary to previous IV drug use and symptoms. will check stool GI pathogen panel when sample available Code(s): R11.10 - VOMITING, UNSPECIFIED; R19.7 - DIARRHEA, UNSPECIFIED (4) Type 2 diabetes mellitus Current Visit: No Status: Chronic Qualifiers: Assessment & Plan: sliding scale, will start on lantus 20 U based on clear liquids only at this time. a1c ordered.
[2020-04-24] MEDS: HUMALOG SQ PRN (17:58)
[2020-04-24] MEDS ORDERED: NORVASC 5 MG PO ONE (20:18)
[2020-04-24] MEDS: Seroquel 100 MG PO SCH (21:33)
[2020-04-25] MEDS: Hydromorphone 1 mg/ml Injection IV PRN ×6 (00:06→20:43)
[2020-04-25] MEDS: Sodium Chloride 0.9% 1000 ML 1,000 ML IV SCH ×3 (02:40→20:42)
[2020-04-25] MEDS: Zofran 4 MG/2 ML VIAL IV PRN ×2 (02:49→11:32)
[2020-04-25 05:02] LABS: Absolute Neutrophil Ct (ANC) 2.53 (1.4-6.9); BASOPHIL % 0.4 % (0.0-0.4); Basophil (Absolute #) 0.02 (0-0.4); Eosinophil % 2.2 % (0.00-5.0); Eosinophil (Absolute #) 0.12 (0-0.5); Hematocrit 46.1 % (42-50); Hemoglobin 15.2 gm/dl (12.5-18.0); Lymphocyte (Absolute #) 2.43 (1.0-4.6); Lymphocytes % 44.5 % (24.0-44.0); Mean Cell Volume 87.6 fl (78-100); Mean Corpuscular Hemoglobin 28.9 pg (26-32); Mean Platelet Volume 10.7 fl (7.5-11.0); Monocyte (Absolute #) 0.36 (0.0-1.3); Monocytes % 6.6 % (0.0-12.0); Neutrophil % 46.3 % (36.0-66.0); Platelet Count 164 K/mm3 (150-450); Red Blood Count 5.26 M/mm3 (4.1-5.6); Red Cell Distribution Width 13.2 % (11.5-14.0); White Blood Count 5.5 K/mm3 (4.0-10.5)
[2020-04-25 05:22] LABS: AMYLASE 81 U/L (30-110); LIPASE 192 U/L (23-300)
[2020-04-25 05:24] LABS: ALBUMIN 3.5 g/dL (3.5-5.0); ALKALINE PHOSPHATASE 68 U/L (38-126); ANION GAP 9.8 MEQ/L (5-15); BLOOD UREA NITROGEN 8 mg/dL (9-20); CHLORIDE 105 mmol/L (98-107); Calcium 8.9 mg/dL (8.4-10.2); Carbon Dioxide 26 mmol/L (22-30); Creatinine 1 0.57 mg/dL (0.66-1.25); EST GLOMERULAR FILTRATION RATE > 60.0 ML/MIN; Glucose 118 mg/dL (74-106); Potassium 3.9 mmol/L (3.5-5.1); SGOT/AST 13 U/L (17-59); SGPT/ALT 8 U/L (0-50); SODIUM 137 mmol/L (137-145); Total Protein 6.3 g/dL (6.3-8.2)
--- NOTE | 2020-04-25 07:53 | PCM.NOTE ---
Date and Time: 04/25/20 0751 Subjective Assessment: no vomiting or diarrhea overnight, patient reports he still has some generalized abdominal pain and tightness, there is no localization of his pain. he did tolerate some broth last night but felt sick after drinking it, he did not vomit Objective Exam General Appearance: no apparent distress Neurologic Exam: alert, oriented x 3 Skin Exam: normal color, warm, dry Respiratory Exam: normal breath sounds, lungs clear, No respiratory distress Cardiovascular Exam: regular rate/rhythm, normal heart sounds Gastrointestinal/Abdomen Exam: soft, normal bowel sounds, No tenderness, No distention, No guarding Extremity Exam: normal inspection, normal range of motion OBJECTIVE DATA Vital Signs: Vital Signs - 24 hr Temp Pulse Resp BP Pulse Ox 04/25/20 07:04 93 L 04/25/20 06:55 97.9 F 75 18 160/100 95 04/25/20 04:00 97.8 F 67 16 167/105 96 04/25/20 00:00 97.8 F 73 18 165/96 97 04/24/20 20:00 98.2 F 71 18 161/103 97 04/24/20 19:47 94 L 04/24/20 16:33 98.3 F 73 16 162/91 95 04/24/20 13:47 99 04/24/20 13:11 98.0 F 80 18 165/98 97 04/24/20 12:53 78 20 136/88 98 04/24/20 12:05 98.1 F 76 20 136/88 98 04/24/20 11:18 98.0 F 84 18 141/90 98 04/24/20 10:39 98.0 F 90 20 145/96 98 04/24/20 09:47 98.0 F 94 H 20 167/98 99 Pain Assessment - Last Documented Pain Intensity 6 Pain Scale Used [facility] Intake and Output: Intake & Output 04/22/20 04/23/20 04/24/20 04/25/20 11:59 11:59 11:59 11:59 Intake Total 2789 Output Total 2900 Balance -111 Weight 83.6 kg 84.3 kg Lab Results: Lab Results-Last 24 Hours 04/24/20 04/24/20 04/24/20 Range/Units 10:20 10:20 10:20 WBC 6.5 (4.0-10.5) K/mm3 RBC 5.44 (4.1-5.6) M/mm3 Hgb 15.9 (12.5-18.0) gm/dl Hct 47.4 (42-50) % MCV 87.1 (78-100) fl MCH 29.2 (26-32) pg MCHC 33.5 (32-36) g/dl RDW 13.1 (11.5-14.0) % Plt Count 180 (150-450) K/mm3 MPV 11.5 H (7.5-11.0) fl Gran % 56.6 (36.0-66.0) % Eos # (Auto) 0.09 (0-0.5) Absolute Lymphs (auto) 2.17 (1.0-4.6) Absolute Monos (auto) 0.54 (0.0-1.3) Lymphocytes % 33.2 (24.0-44.0) % Monocytes % 8.3 (0.0-12.0) % Eosinophils % 1.4 (0.00-5.0) % Basophils % 0.5 (0.0-0.4) % Absolute Granulocytes 3.70 (1.4-6.9) Basophils # 0.03 (0-0.4) Sodium 134 L (137-145) mmol/L Potassium 4.3 (3.5-5.1) mmol/L Chloride 100 (98-107) mmol/L Carbon Dioxide 24 (22-30) mmol/L Anion Gap 14.9 (5-15) MEQ/L BUN 15 (9-20) mg/dL Creatinine 0.66 (0.66-1.25) mg/dL Estimated GFR > 60.0 ML/MIN Glucose 316 H (74-106) mg/dL POC Glucometer (74 to 106) mg/dL Hemoglobin A1c 11.53 H (4.5-6.0) % Lactic Acid (0.4-2.0) Calcium 9.5 (8.4-10.2) mg/dL Total Bilirubin 0.70 (0.2-1.3) mg/dL AST 15 L (17-59) U/L ALT 9 (0-50) U/L Alkaline Phosphatase 84 (38-126) U/L Serum Total Protein 7.2 (6.3-8.2) g/dL Albumin 4.3 (3.5-5.0) g/dL Amylase 149 H (30-110) U/L Lipase 575 H (23-300) U/L Urine Color (YELLOW) Urine Appearance (CLEAR) Urine pH (5-6) Ur Specific Parks (1.005-1.025) Urine Protein (Negative) Urine Ketones (NEGATIVE) Urine Blood (0-5) Rodrigo/ul Urine Nitrite (NEGATIVE) Urine Bilirubin (NEGATIVE) Urine Urobilinogen (0-1) mg/dL Ur Leukocyte Esterase (NEGATIVE) Urine WBC (Auto) (0-5) /HPF Urine RBC (Auto) (0-2) /HPF U Epithel Cells (Auto) (FEW) /HPF Urine Bacteria (Auto) (NEGATIVE) /HPF Urine Culture Reflexed (NO) Urine Glucose (NEGATIVE) mg/dL 04/24/20 04/24/20 04/24/20 Range/Units 10:39 11:09 17:53 WBC (4.0-10.5) K/mm3 RBC (4.1-5.6) M/mm3 Hgb (12.5-18.0) gm/dl Hct (42-50) % MCV (78-100) fl MCH (26-32) pg MCHC (32-36) g/dl RDW (11.5-14.0) % Plt Count (150-450) K/mm3 MPV (7.5-11.0) fl Gran % (36.0-66.0) % Eos # (Auto) (0-0.5) Absolute Lymphs (auto) (1.0-4.6) Absolute Monos (auto) (0.0-1.3) Lymphocytes % (24.0-44.0) % Monocytes % (0.0-12.0) % Eosinophils % (0.00-5.0) % Basophils % (0.0-0.4) % Absolute Granulocytes (1.4-6.9) Basophils # (0-0.4) Sodium (137-145) mmol/L Potassium (3.5-5.1) mmol/L Chloride (98-107) mmol/L Carbon Dioxide (22-30) mmol/L Anion Gap (5-15) MEQ/L BUN (9-20) mg/dL Creatinine (0.66-1.25) mg/dL Estimated GFR ML/MIN Glucose (74-106) mg/dL POC Glucometer 286 H (74 to 106) mg/dL Hemoglobin A1c (4.5-6.0) % Lactic Acid 1.0 (0.4-2.0) Calcium (8.4-10.2) mg/dL Total Bilirubin (0.2-1.3) mg/dL AST (17-59) U/L ALT (0-50) U/L Alkaline Phosphatase (38-126) U/L Serum Total Protein (6.3-8.2) g/dL Albumin (3.5-5.0) g/dL Amylase (30-110) U/L Lipase (23-300) U/L Urine Color YELLOW (YELLOW) Urine Appearance CLEAR (CLEAR) Urine pH 6.0 (5-6) Ur Specific Parks 1.035 (1.005-1.025) Urine Protein 30 (Negative) Urine Ketones MODERATE (NEGATIVE) Urine Blood NEGATIVE (0-5) Rodrigo/ul Urine Nitrite NEGATIVE (NEGATIVE) Urine Bilirubin NEGATIVE (NEGATIVE) Urine Urobilinogen NEGATIVE (0-1) mg/dL Ur Leukocyte Esterase NEGATIVE (NEGATIVE) Urine WBC (Auto) 0-2 (0-5) /HPF Urine RBC (Auto) 0-2 (0-2) /HPF U Epithel Cells (Auto) RARE (FEW) /HPF Urine Bacteria (Auto) RARE (NEGATIVE) /HPF Urine Culture Reflexed NO (NO) Urine Glucose >=500 (NEGATIVE) mg/dL 04/25/20 04/25/20 04/25/20 Range/Units 00:01 04:25 04:25 WBC 5.5 (4.0-10.5) K/mm3 RBC 5.26 (4.1-5.6) M/mm3 Hgb 15.2 (12.5-18.0) gm/dl Hct 46.1 (42-50) % MCV 87.6 (78-100) fl MCH 28.9 (26-32) pg MCHC 33.0 (32-36) g/dl RDW 13.2 (11.5-14.0) % Plt Count 164 (150-450) K/mm3 MPV 10.7 (7.5-11.0) fl Gran % 46.3 (36.0-66.0) % Eos # (Auto) 0.12 (0-0.5) Absolute Lymphs (auto) 2.43 (1.0-4.6) Absolute Monos (auto) 0.36 (0.0-1.3) Lymphocytes % 44.5 H (24.0-44.0) % Monocytes % 6.6 (0.0-12.0) % Eosinophils % 2.2 (0.00-5.0) % Basophils % 0.4 (0.0-0.4) % Absolute Granulocytes 2.53 (1.4-6.9) Basophils # 0.02 (0-0.4) Sodium 137 (137-145) mmol/L Potassium 3.9 (3.5-5.1) mmol/L Chloride 105 (98-107) mmol/L Carbon Dioxide 26 (22-30) mmol/L Anion Gap 9.8 (5-15) MEQ/L BUN 8 L (9-20) mg/dL Creatinine 0.57 L (0.66-1.25) mg/dL Estimated GFR > 60.0 ML/MIN Glucose 118 H (74-106) mg/dL POC Glucometer 96 (74 to 106) mg/dL Hemoglobin A1c (4.5-6.0) % Lactic Acid (0.4-2.0) Calcium 8.9 (8.4-10.2) mg/dL Total Bilirubin 0.60 (0.2-1.3) mg/dL AST 13 L (17-59) U/L ALT 8 (0-50) U/L Alkaline Phosphatase 68 (38-126) U/L Serum Total Protein 6.3 (6.3-8.2) g/dL Albumin 3.5 (3.5-5.0) g/dL Amylase (30-110) U/L Lipase (23-300) U/L Urine Color (YELLOW) Urine Appearance (CLEAR) Urine pH (5-6) Ur Specific Parks (1.005-1.025) Urine Protein (Negative) Urine Ketones (NEGATIVE) Urine Blood (0-5) Rodrigo/ul Urine Nitrite (NEGATIVE) Urine Bilirubin (NEGATIVE) Urine Urobilinogen (0-1) mg/dL Ur Leukocyte Esterase (NEGATIVE) Urine WBC (Auto) (0-5) /HPF Urine RBC (Auto) (0-2) /HPF U Epithel Cells (Auto) (FEW) /HPF Urine Bacteria (Auto) (NEGATIVE) /HPF Urine Culture Reflexed (NO) Urine Glucose (NEGATIVE) mg/dL 04/25/20 04/25/20 Range/Units 04:25 04:32 WBC (4.0-10.5) K/mm3 RBC (4.1-5.6) M/mm3 Hgb (12.5-18.0) gm/dl Hct (42-50) % MCV (78-100) fl MCH (26-32) pg MCHC (32-36) g/dl RDW (11.5-14.0) % Plt Count (150-450) K/mm3 MPV (7.5-11.0) fl Gran % (36.0-66.0) % Eos # (Auto) (0-0.5) Absolute Lymphs (auto) (1.0-4.6) Absolute Monos (auto) (0.0-1.3) Lymphocytes % (24.0-44.0) % Monocytes % (0.0-12.0) % Eosinophils % (0.00-5.0) % Basophils % (0.0-0.4) % Absolute Granulocytes (1.4-6.9) Basophils # (0-0.4) Sodium (137-145) mmol/L Potassium (3.5-5.1) mmol/L Chloride (98-107) mmol/L Carbon Dioxide (22-30) mmol/L Anion Gap (5-15) MEQ/L BUN (9-20) mg/dL Creatinine (0.66-1.25) mg/dL Estimated GFR ML/MIN Glucose (74-106) mg/dL POC Glucometer 104 (74 to 106) mg/dL Hemoglobin A1c (4.5-6.0) % Lactic Acid (0.4-2.0) Calcium (8.4-10.2) mg/dL Total Bilirubin (0.2-1.3) mg/dL AST (17-59) U/L ALT (0-50) U/L Alkaline Phosphatase (38-126) U/L Serum Total Protein (6.3-8.2) g/dL Albumin (3.5-5.0) g/dL Amylase 81 (30-110) U/L Lipase 192 (23-300) U/L Urine Color (YELLOW) Urine Appearance (CLEAR) Urine pH (5-6) Ur Specific Parks (1.005-1.025) Urine Protein (Negative) Urine Ketones (NEGATIVE) Urine Blood (0-5) Rodrigo/ul Urine Nitrite (NEGATIVE) Urine Bilirubin (NEGATIVE) Urine Urobilinogen (0-1) mg/dL Ur Leukocyte Esterase (NEGATIVE) Urine WBC (Auto) (0-5) /HPF Urine RBC (Auto) (0-2) /HPF U Epithel Cells (Auto) (FEW) /HPF Urine Bacteria (Auto) (NEGATIVE) /HPF Urine Culture Reflexed (NO) Urine Glucose (NEGATIVE) mg/dL Radiology Exams: Radiology Procedures Category Date Time Status ABDOMEN AND PELVIS W/0 CONTRAS [CT] Stat Exams 04/24/20 10:26 Completed GALLBLADDER [US] Routine Exams 04/25/20 08:00 Ordered Multi-Disciplinary Progress Notes: Multi-Disciplinary Progress Notes 04/24/20 14:45 Case Management Note by Valentine Dotson DISCUSSION WITH PT REGARDING NEEDS AT DISCHARGE. FRIEND AT BEDSIDE. REPORTS THAT HE IS NORMALLY INDEPENDENT WITH ALL ADL'S. JUST TRAVELED TO [facility] OUT OF STATE, AND HIS MEDICATIONS WERE IN HIS LU[place] THAT WAS STOLEN, SO HE HAS NOT HAD ANY MEDICATIONS FOR LAST FOUR DAYS. REPORTS THAT HE REPORTED IT TO THE [facility], BUT DID NOT FILE A POLICE REPORT. ALSO, REPORTS THAT HE IS OUT OF REFILLS. REPORTS THAT THE ONLY EQUIP HE USES IS A GLUCOMETER, AND IT IS IN WORKING CONDITION. REPORTS THAT HE DOES NOT CHECK HIS BLOOD SUGAR OFTEN HE SHOULD. DENIES NEEDS FOR DISCHARGE AT THIS TIME, OTHER THAN NEW RX'S FOR HIS MEDICATIONS. Initialized on 04/24/20 14:45 - END OF NOTE Assessment/Plan (1) Acute pancreatitis Current Visit: Yes Status: Acute Assessment & Plan: enzymes are normal this am, clinically appears improved. awaiting gallbladder ultrasound, if stones will consult surgery. if no stones will start a low fat diet and repeat labs in am Code(s): K85.90 - ACUTE PANCREATITIS WITHOUT NECROSIS OR INFECTION, UNSP (2) Dehydration Current Visit: Yes Status: Acute Assessment & Plan: volume status replaced, patient is urinating frequently and overall feeling improved since admission Code(s): E86.0 - DEHYDRATION (3) Vomiting and diarrhea Current Visit: Yes Status: Acute Code(s): R11.10 - VOMITING, UNSPECIFIED; R19.7 - DIARRHEA, UNSPECIFIED (4) Type 2 diabetes mellitus Current Visit: No Status: Chronic Qualifiers: Assessment & Plan: discussed issue of compliance and a1c needs to be below 8% for revision of knee arthroplasty, he understands the importance of compliance with regimen
[2020-04-25] MEDS ORDERED: Zestril 10 MG PO SCH (10:00)
[2020-04-25] MEDS: Neurontin 400 MG PO SCH ×3 (10:21→21:32)
[2020-04-25] MEDS: Lantus Insulin SQ SCH (10:23)
--- NOTE | 2020-04-25 11:48 | XRAY ---
Indication: Abdomen pain. Acute pancreatitis. Two-dimensional gallbladder sonogram performed. Comparison: None Gallbladder moderately distended without gallstones, wall thickening, or pericholecystic fluid. Common bile duct measures 3.9 mm. No intrahepatic biliary distention. Remaining visualized liver, pancreas, and right kidney appear sonographically unremarkable. No organomegaly or ascites. Right kidney measures 14.9 cm in length. Impression: Negative gallbladder sonogram.
[2020-04-25] MEDS ORDERED: Zestril 10 MG PO STA (20:50)
[2020-04-25] MEDS: Seroquel 100 MG PO SCH (21:32)
[2020-04-25] MEDS: HUMALOG SQ PRN (23:27)
[2020-04-26] MEDS: Hydromorphone 1 mg/ml Injection IV PRN ×6 (00:46→21:10)
[2020-04-26 05:24] LABS: Absolute Neutrophil Ct (ANC) 2.77 (1.4-6.9); BASOPHIL % 0.4 % (0.0-0.4); Basophil (Absolute #) 0.02 (0-0.4); Eosinophil % 2.9 % (0.00-5.0); Eosinophil (Absolute #) 0.16 (0-0.5); Hematocrit 42.7 % (42-50); Hemoglobin 14.2 gm/dl (12.5-18.0); Lymphocyte (Absolute #) 2.13 (1.0-4.6); Lymphocytes % 39.1 % (24.0-44.0); Mean Cell Volume 87.5 fl (78-100); Mean Corpuscular Hemoglobin 29.1 pg (26-32); Mean Corpuscular Hgb Concent. 33.3 g/dl (32-36); Mean Platelet Volume 10.3 fl (7.5-11.0); Monocyte (Absolute #) 0.37 (0.0-1.3); Monocytes % 6.8 % (0.0-12.0); Neutrophil % 50.8 % (36.0-66.0); Platelet Count 154 K/mm3 (150-450); Red Blood Count 4.88 M/mm3 (4.1-5.6); Red Cell Distribution Width 12.9 % (11.5-14.0); White Blood Count 5.5 K/mm3 (4.0-10.5)
[2020-04-26 05:43] LABS: ALBUMIN 3.2 g/dL (3.5-5.0); ALKALINE PHOSPHATASE 57 U/L (38-126); AMYLASE 84 U/L (30-110); ANION GAP 6.5 MEQ/L (5-15); BLOOD UREA NITROGEN 8 mg/dL (9-20); CHLORIDE 106 mmol/L (98-107); Carbon Dioxide 27 mmol/L (22-30); Creatinine 1 0.48 mg/dL (0.66-1.25); EST GLOMERULAR FILTRATION RATE > 60.0 ML/MIN; Glucose 151 mg/dL (74-106); LIPASE 286 U/L (23-300); Potassium 3.6 mmol/L (3.5-5.1); SGOT/AST 12 U/L (17-59); SGPT/ALT 8 U/L (0-50); SODIUM 135 mmol/L (137-145); Total Protein 5.8 g/dL (6.3-8.2)
[2020-04-26] MEDS: Sodium Chloride 0.9% 1000 ML 1,000 ML IV SCH ×2 (06:21→16:55)
--- NOTE | 2020-04-26 07:54 | PCM.NOTE ---
Date and Time: 04/26/20 0751 Subjective Assessment: patient continues to have some pain and poor appetite. he has not had any vomiting or diarrhea but continues to have a dull ache in his stomach and some nausea. he is tolerating po intake but still feels poorly Objective Exam General Appearance: no apparent distress Neurologic Exam: alert, oriented x 3 Respiratory Exam: normal breath sounds, lungs clear, No respiratory distress Cardiovascular Exam: regular rate/rhythm, normal heart sounds Gastrointestinal/Abdomen Exam: soft, normal bowel sounds, tenderness (mild epigastrium and low abd), No distention, No guarding, No rebound Extremity Exam: normal inspection, normal range of motion OBJECTIVE DATA Vital Signs: Vital Signs - 24 hr Temp Pulse Resp BP Pulse Ox 04/26/20 06:42 98.4 F 71 20 135/90 96 04/26/20 04:00 18 04/26/20 03:53 98.2 F 64 18 139/67 95 04/26/20 00:00 18 04/25/20 23:33 98.4 F 79 18 130/79 97 04/25/20 20:00 18 04/25/20 19:31 98.5 F 69 18 160/101 98 04/25/20 16:00 99.6 F 70 16 154/94 97 04/25/20 11:39 18 04/25/20 11:26 160/98 04/25/20 11:14 98.9 F 70 18 170/105 97 04/25/20 07:54 18 Pain Assessment - Last Documented Pain Intensity 7 Pain Scale Used 0-10 Pain Scale Intake and Output: Intake & Output 04/23/20 04/24/20 04/25/20 04/26/20 11:59 11:59 11:59 11:59 Intake Total 2789 5607 Output Total 9208 3825 Balance -586 1782 Weight 83.6 kg 84.3 kg 83.5 kg Lab Results: Lab Results-Last 24 Hours 04/25/20 04/25/20 04/25/20 Range/Units 11:21 17:35 22:54 WBC (4.0-10.5) K/mm3 RBC (4.1-5.6) M/mm3 Hgb (12.5-18.0) gm/dl Hct (42-50) % MCV (78-100) fl MCH (26-32) pg MCHC (32-36) g/dl RDW (11.5-14.0) % Plt Count (150-450) K/mm3 MPV (7.5-11.0) fl Gran % (36.0-66.0) % Eos # (Auto) (0-0.5) Absolute Lymphs (auto) (1.0-4.6) Absolute Monos (auto) (0.0-1.3) Lymphocytes % (24.0-44.0) % Monocytes % (0.0-12.0) % Eosinophils % (0.00-5.0) % Basophils % (0.0-0.4) % Absolute Granulocytes (1.4-6.9) Basophils # (0-0.4) Sodium (137-145) mmol/L Potassium (3.5-5.1) mmol/L Chloride (98-107) mmol/L Carbon Dioxide (22-30) mmol/L Anion Gap (5-15) MEQ/L BUN (9-20) mg/dL Creatinine (0.66-1.25) mg/dL Estimated GFR ML/MIN Glucose (74-106) mg/dL POC Glucometer 175 H 196 H 192 H (74 to 106) mg/dL Calcium (8.4-10.2) mg/dL Total Bilirubin (0.2-1.3) mg/dL AST (17-59) U/L ALT (0-50) U/L Alkaline Phosphatase (38-126) U/L Serum Total Protein (6.3-8.2) g/dL Albumin (3.5-5.0) g/dL Amylase (30-110) U/L Lipase (23-300) U/L 04/26/20 04/26/20 04/26/20 Range/Units 05:10 05:10 06:35 WBC 5.5 (4.0-10.5) K/mm3 RBC 4.88 (4.1-5.6) M/mm3 Hgb 14.2 (12.5-18.0) gm/dl Hct 42.7 (42-50) % MCV 87.5 (78-100) fl MCH 29.1 (26-32) pg MCHC 33.3 (32-36) g/dl RDW 12.9 (11.5-14.0) % Plt Count 154 (150-450) K/mm3 MPV 10.3 (7.5-11.0) fl Gran % 50.8 (36.0-66.0) % Eos # (Auto) 0.16 (0-0.5) Absolute Lymphs (auto) 2.13 (1.0-4.6) Absolute Monos (auto) 0.37 (0.0-1.3) Lymphocytes % 39.1 (24.0-44.0) % Monocytes % 6.8 (0.0-12.0) % Eosinophils % 2.9 (0.00-5.0) % Basophils % 0.4 (0.0-0.4) % Absolute Granulocytes 2.77 (1.4-6.9) Basophils # 0.02 (0-0.4) Sodium 135 L (137-145) mmol/L Potassium 3.6 (3.5-5.1) mmol/L Chloride 106 (98-107) mmol/L Carbon Dioxide 27 (22-30) mmol/L Anion Gap 6.5 (5-15) MEQ/L BUN 8 L (9-20) mg/dL Creatinine 0.48 L (0.66-1.25) mg/dL Estimated GFR > 60.0 ML/MIN Glucose 151 H (74-106) mg/dL POC Glucometer 148 H (74 to 106) mg/dL Calcium 9.0 (8.4-10.2) mg/dL Total Bilirubin 0.40 (0.2-1.3) mg/dL AST 12 L (17-59) U/L ALT 8 (0-50) U/L Alkaline Phosphatase 57 (38-126) U/L Serum Total Protein 5.8 L (6.3-8.2) g/dL Albumin 3.2 L (3.5-5.0) g/dL Amylase 84 (30-110) U/L Lipase 286 (23-300) U/L Radiology Exams: Radiology Procedures Category Date Time Status ABDOMEN AND PELVIS W/0 CONTRAS [CT] Stat Exams 04/24/20 10:26 Completed GALLBLADDER [US] Routine Exams 04/25/20 08:00 Completed Multi-Disciplinary Progress Notes: Multi-Disciplinary Progress Notes 04/25/20 10:20 (created 04/25/20 14:14) Case Management Note by Valentine Dotson STILL DENIES NEEDS FOR DISCHARGE OTHER THAN WHATEVER RX'S HE WILL NEED. INDEPENDENT WITH ALL ADL'S. WILL FOLLOW. Initialized on 04/25/20 14:14 - END OF NOTE Assessment/Plan (1) Acute pancreatitis Current Visit: Yes Status: Acute Assessment & Plan: resolved, negative gallbladder ultrasound and negative ct scan. tolerating low fat diet, will continue. ok to d/c home when feeling better, will repeat labs in am. discussed that if his abd pain and nausea persist we should pursue outpatient EGD and colonoscopy and he agrees. Code(s): K85.90 - ACUTE PANCREATITIS WITHOUT NECROSIS OR INFECTION, UNSP (2) Dehydration Current Visit: Yes Status: Acute Assessment & Plan: resolved Code(s): E86.0 - DEHYDRATION (3) Vomiting and diarrhea Current Visit: Yes Status: Acute Code(s): R11.10 - VOMITING, UNSPECIFIED; R19.7 - DIARRHEA, UNSPECIFIED (4) Type 2 diabetes mellitus Current Visit: No Status: Chronic Qualifiers:
[2020-04-26] MEDS: Neurontin 400 MG PO SCH ×3 (09:17→21:10)
[2020-04-26] MEDS: Zestril 10 MG PO SCH ×2 (09:17→21:10)
[2020-04-26] MEDS: Lantus Insulin SQ SCH (09:17)
[2020-04-26] MEDS: HUMALOG SQ PRN ×2 (12:20→21:10)
[2020-04-26] MEDS: Zofran 4 MG/2 ML VIAL IV PRN (15:28)
[2020-04-26] MEDS: Seroquel 100 MG PO SCH (21:10)
[2020-04-27] MEDS: Hydromorphone 1 mg/ml Injection IV PRN ×3 (01:51→09:55)
[2020-04-27] MEDS: Sodium Chloride 0.9% 1000 ML 1,000 ML IV SCH (02:09)
[2020-04-27 05:53] LABS: Absolute Neutrophil Ct (ANC) 2.66 (1.4-6.9); BASOPHIL % 0.4 % (0.0-0.4); Basophil (Absolute #) 0.02 (0-0.4); Eosinophil % 2.8 % (0.00-5.0); Eosinophil (Absolute #) 0.16 (0-0.5); Hematocrit 41.1 % (42-50); Hemoglobin 13.7 gm/dl (12.5-18.0); Lymphocyte (Absolute #) 2.39 (1.0-4.6); Lymphocytes % 42.5 % (24.0-44.0); Mean Cell Volume 88.2 fl (78-100); Mean Corpuscular Hemoglobin 29.4 pg (26-32); Mean Corpuscular Hgb Concent. 33.3 g/dl (32-36); Mean Platelet Volume 10.8 fl (7.5-11.0); Monocytes % 7.1 % (0.0-12.0); Neutrophil % 47.2 % (36.0-66.0); Platelet Count 167 K/mm3 (150-450); Red Blood Count 4.66 M/mm3 (4.1-5.6); Red Cell Distribution Width 12.9 % (11.5-14.0); White Blood Count 5.6 K/mm3 (4.0-10.5)
[2020-04-27 06:08] LABS: ALBUMIN 3.2 g/dL (3.5-5.0); ALKALINE PHOSPHATASE 54 U/L (38-126); AMYLASE 75 U/L (30-110); ANION GAP 9.1 MEQ/L (5-15); BLOOD UREA NITROGEN 10 mg/dL (9-20); CHLORIDE 106 mmol/L (98-107); Calcium 8.8 mg/dL (8.4-10.2); Carbon Dioxide 24 mmol/L (22-30); Creatinine 1 0.51 mg/dL (0.66-1.25); EST GLOMERULAR FILTRATION RATE > 60.0 ML/MIN; Glucose 196 mg/dL (74-106); LIPASE 177 U/L (23-300); Potassium 3.9 mmol/L (3.5-5.1); SGOT/AST 15 U/L (17-59); SGPT/ALT 9 U/L (0-50); SODIUM 134 mmol/L (137-145); Total Protein 5.9 g/dL (6.3-8.2)
[2020-04-27 07:07] VITALS: BP 139/86; PULSE 73; O2SAT 96
[2020-04-27] MEDS: Neurontin 400 MG PO SCH (09:00)
[2020-04-27] MEDS: Lantus Insulin SQ SCH (09:01)
[2020-04-27] MEDS: Zestril 10 MG PO SCH (09:01)
--- NOTE | 2020-04-30 14:19 | DS ---
DISCHARGE DIAGNOSES: 1) PANCREATITIS. 2) INSULIN DEPENDENT DIABETES MELLITUS. 3) VOMITING AND ABDOMINAL PAIN. HOSPITAL COURSE: The patient is a 50 year old white male patient who presented to the emergency room with complaints of vomiting and diarrhea. He had been out of his insulin for the past few days because his insurance would not cover his Levemir. He presented to the hospital with the above complaints. He was found to have a slight elevation in his amylase and lipase which was at 575. He was placed on clear liquid diet and initially NPO. His pancreatic enzymes resolved to normal by the next day. The patient had continued on IV Dilaudid for pain control. By the morning of 04/27/2020, he was feeling up to going home. He was discharged home on the Dilaudid at 2 mg every four hours PRN for pain. We called in his medicines particularly his insulin and Basaglar so hopefully his insurance will cover it. He was instructed to follow up with Dr. Bryant in the next week. Laboratory studies other than his elevation of amylase and lipase, his A1C was noted to be above 11. His initial sugar was 316. He did not appear to be in diabetic ketoacidosis as his carbon dioxide was 24. His CBC was normal. UA showed sugar but otherwise specific gravity 1.035 and otherwise was normal. Lactic acid 1.0. Hemoglobin A1C noted previously was 11.53. By 04/25/2020, his amylase 81 and lipase 192. Gallbladder ultrasound was negative. Nonacute CT abdomen and pelvis without contrast with incidental chronic findings. Again, the patient will be discharged home at this time with Dilaudid for pain control, call in his long-acting insulin. He is also requesting his other home medications as he has not had those filled either. We will call in a prescription supply for these until he can get back to see Dr. Bryant again.
== END 2020-04-27 10:50 | disposition home or self-care (01) | DRG 440 ==
LOC: ED 09:37 → MED SURG 13:05 → OBSVTOIN 15:43
PROVIDERS: ADMIT Family Medicine; ATTEND Family Medicine
DX: K85.90 Acute pancreatitis without necrosis or infection, unspecified (principal); E86.0 Dehydration; R11.10 Vomiting, unspecified; E11.9 Type 2 diabetes mellitus without complications; I10 Essential (primary) hypertension; R19.7 Diarrhea, unspecified; Z79.4 Long term (current) use of insulin; Z79.899 Other long term (current) drug therapy
CPT/HCPCS: 36000; 36415; 74176; 76705; 80053; 80074; 81001; 82150; 82947; 83036; 83605; 83690; 85025; 86592; 86701; 86702; 87040; 87389; 87535; 94762; 96360; 96361; 96372; 96374; 96375; 96376; 99285; J1170; J1815; J1817; J2405; A9270-GY

== ENCOUNTER 2020-05-07 05:53 | Day surgery (SDC) | payer MEDICARE ==
[2020-05-07] MEDS ORDERED: Lactated Ringers 1,000 ML IV SCH (06:30)
[2020-05-07] MEDS ORDERED: VERSED 5 MG/5 ML IV ONE (06:58)
[2020-05-07] MEDS ORDERED: Versed 2 MG/2 ML Injection ONE (06:59)
[2020-05-07] MEDS ORDERED: Sodium Chloride 0.9% 1000 ML 1,000 ML IV SCH (07:00)
[2020-05-07] MEDS ORDERED: HUMALOG ONE (07:26)
[2020-05-07] MEDS ORDERED: HUMALOG SQ ONE (07:30)
[2020-05-07] MEDS ORDERED: DIPRIVAN 200 MG/20 ML IV ONE ×3 (07:54→08:24)
[2020-05-07] MEDS ORDERED: Sodium Chloride 0.9% 1000 ML 1,000 ML ONE (08:26)
[2020-05-07 09:28] VITALS: BP 121/77; PULSE 89; O2SAT 100
--- NOTE | 2020-05-07 11:33 | OP ---
SURGERY DATE/TIME: 05/07/2020 0756 PREOPERATIVE DIAGNOSIS: Unexplained weight loss. POSTOPERATIVE DIAGNOSES: 1) Gastritis. 2) Duodenitis. 3) Normal colon but poor prep. PROCEDURES: 1) Esophagogastroduodenoscopy with cold forceps biopsy. 2) Colonoscopy. SURGEON: Dr. Khoury. ANESTHESIA: Medications were given by the anesthesia department. HISTORY: The patient is a 50 year old white male presents now with complaints of 20 pound weight loss unexplained. The patient has diabetes mellitus type I. He has no other specific complaints. The patient is felt the need to have endoscopic evaluation. He was appraised of the risks of the procedure including the risk of perforation, phlebitis, untoward reaction to medication, bleeding and missed lesions. The patient verbalized his understanding and desired to have the procedure performed. DESCRIPTION OF PROCEDURE: The patient was given the medications by the anesthesia department. He had continuous pulse oximetry, ECG monitoring, intermittent blood pressure monitoring and tidal CO2 monitoring during the examination. He was placed in the left lateral decubitus position. A bite block was placed and the flexible Olympus gastroscope was used to intubate the oropharynx. A view of the larynx was obtained and was normal. The scope was easily introduced in the esophagus which appeared to be essentially normal throughout its length. The stomach was entered. There appeared to be some areas of inflammation particularly in the greater curvature and antrum these were biopsied using cold biopsy technique to confirm gastritis and rule out the presence of Helicobacter pylori-type organisms. The pylorus encountered and intubated. Duodenum inspected and found to have erythema and at least a mild to moderate duodenitis. The scope is withdrawn towards the stomach. Retroflex view obtained of the lesser curvature and cardia regions of the stomach and these appeared to be more normal. The scope was then removed from the patient. Next, a digital rectal examination was performed and revealed normal anal tone and no masses and a large but smooth prostate. No nodules were felt. No other masses. The flexible Olympus pediatric colonoscope was used to intubate the rectum. A view of the colon was developed sequentially to the cecum. Upon insertion and withdrawal was noted copious amounts of semisolid stool. We spent a large majority of the time flushing and suctioning alternately stool and flush materials. The colon appeared to be clear of any apple-core lesions or large polyps but recognized that small polyps may be missed during this procedure that probably at least 5% of the colon wall was left unable to be examined.
== END 2020-05-07 09:53 | disposition home or self-care (01) ==
LOC: SDC 05:53
PROVIDERS: ATTEND Family Medicine
DX: K29.70 Gastritis, unspecified, without bleeding (principal); K29.80 Duodenitis without bleeding; E10.9 Type 1 diabetes mellitus without complications; Z79.4 Long term (current) use of insulin
CPT/HCPCS: 82947; J1817; J2250; J2704

== ENCOUNTER 2020-09-25 11:18 | Emergency (ER) | payer MEDICARE ==
[2020-09-25] MEDS ORDERED: Zofran 4 MG/2 ML VIAL IV ONE (11:47)
[2020-09-25] MEDS ORDERED: MORPHINE SULFATE 4 MG INJ IV ONE ×2 (11:47→13:21)
[2020-09-25] MEDS ORDERED: CLINDAMYCIN-D5W 900 MG/50 ML*** 900 MG/50 ML BAG IV STA (11:48)
[2020-09-25] MEDS ORDERED: Zofran 4 MG/2 ML VIAL ONE (11:50)
[2020-09-25] MEDS ORDERED: MORPHINE SULFATE 4 MG INJ ONE ×2 (11:50→13:35)
[2020-09-25] MEDS ORDERED: CLINDAMYCIN-D5W 900 MG/50 ML*** 900 MG/50 ML BAG IV ONE (11:51)
[2020-09-25 12:48] LABS: Absolute Neutrophil Ct (ANC) 4.76 (1.4-6.9); BASOPHIL % 0.3 % (0.0-0.4); Basophil (Absolute #) 0.02 (0-0.4); Eosinophil % 1.2 % (0.00-5.0); Eosinophil (Absolute #) 0.09 (0-0.5); Hematocrit 51.5 % (42-50); Lymphocyte (Absolute #) 1.68 (1.0-4.6); Lymphocytes % 22.7 % (24.0-44.0); Mean Cell Volume 88.5 fl (78-100); Mean Corpuscular Hemoglobin 29.2 pg (26-32); Mean Platelet Volume 10.5 fl (7.5-11.0); Monocyte (Absolute #) 0.86 (0.0-1.3); Monocytes % 11.6 % (0.0-12.0); Neutrophil % 64.2 % (36.0-66.0); Platelet Count 256 K/mm3 (150-450); Red Blood Count 5.82 M/mm3 (4.1-5.6); Red Cell Distribution Width 12.8 % (11.5-14.0); White Blood Count 7.4 K/mm3 (4.0-10.5)
[2020-09-25 12:50] LABS: ALBUMIN 4.4 g/dL (3.5-5.0); ALKALINE PHOSPHATASE 79 U/L (38-126); ANION GAP 17.2 MEQ/L (5-15); BLOOD UREA NITROGEN 15 mg/dL (9-20); CHLORIDE 98 mmol/L (98-107); Carbon Dioxide 26 mmol/L (22-30); EST GLOMERULAR FILTRATION RATE > 60.0 ML/MIN; Glucose 131 mg/dL (74-106); Potassium 4.4 mmol/L (3.5-5.1); SGOT/AST 18 U/L (17-59); SGPT/ALT 11 U/L (0-50); SODIUM 137 mmol/L (137-145); Total Protein 7.5 g/dL (6.3-8.2)
[2020-09-25 13:32] VITALS: O2SAT 98
--- NOTE | 2020-09-25 13:41 | XRAY ---
Indication: Medial knee pain. No known injury. Comparison: None 4 view right knee demonstrates total knee arthroplasty with bipolar prosthesis and tiny surrounding heterotopic ossifications. 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 Mild medial knee soft tissue swelling. Outside comparison studies would be of benefit.
[2020-09-25 14:18] VITALS: BP 128/80; PULSE 95
--- NOTE | 2020-09-25 14:33 | ERPHSYRPT ---
- History of Present Illness Time Seen by Provider: 09/25/20 11:29 Source: patient Exam Limitations: no limitations Patient Subjective Stated Complaint: Pt states "I had a right knee replacement 2 years ago and something is wrong with it now. There is a bump and now a red swollen area." Triage Nursing Assessment: Pt presented alert and oriented Ax 3, skin pwd Pt ambulates with a limp and cane. Pt has red raised area noted to medial right knee, a hard bump on the distal right knee. Physician History: 50 years old male with a history of diabetes mellitus, arthritis, multiple surgeries in the right knee with replacement x2 with still having pain and currently supposed to have revision surgery by Dr. Dunbar presented in the ER with increasing pain in the knee and the swelling on the medial aspect of knee. Patient report swelling is progressively worsening for the last 3 to 4 days with increasing redness and difficulty ambulation. Denies any fever or chills. Occurred: days ago (3) Quality: sharpness Severity of Pain-Max: moderate Severity of Pain-Current: moderate Lower Extremities Pain: knee: right Modifying Factors: Improves With: immobilization, rest. Worsens With: movement Allergies/Adverse Reactions: No Known Drug Allergies Allergy (Verified 05/07/20 06:08) Home Medications: Insulin Glargine,Hum.rec.anlog [Lantus] 40 unit SQ BID 05/03/20 [History] Hx Tetanus, Diphtheria Vaccination/Date Given: Yes Hx Influenza Vaccination/Date Given: No Hx Pneumococcal Vaccination/Date Given: No Immunizations Up to Date: Yes Travel Risk - International Travel Have you traveled outside of the country in past 3 weeks: No - Coronavirus Screening Are you exhibiting any of the following symptoms?: No Close contact with a COVID-19 positive Pt in past 14-21 Days: No - Vaccine Status Have you recieved a Covid-19 vaccination: Yes Flaker Tender: appiris - Vaccination Dates Date of [employer]([facility]) Vaccination: 09/10/20 - Review of Systems Constitutional: No Symptoms Eyes: No Symptoms Ears, Nose, & Throat: No Symptoms Respiratory: No Symptoms Cardiac: No Symptoms Abdominal/Gastrointestinal: No Symptoms Genitourinary Symptoms: No Symptoms Musculoskeletal: Arthralgias, Joint Redness, Joint Pain Skin: Cellulitis, Rash Neurological: No Symptoms Psychological: No Symptoms Endocrine: No Symptoms Hematologic/Lymphatic: No Symptoms Immunological/Allergic: No Symptoms - Past Medical History Pertinent Past Medical History: Yes Neurological History: No Pertinent History ENT History: No Pertinent History Cardiac History: No Pertinent History Respiratory History: Pneumonia Endocrine Medical History: Diabetes Type II Musculoskeletal History: Arthritis GI Medical History: No Pertinent History History: No Pertinent History Psycho-Social History: Depression Male Reproductive Disorders: No Pertinent History Other Medical History: 05/02/2020 PNEUMONIA 2 MONTHS AGO - Past Surgical History Past Surgical History: Yes Neuro Surgical History: No Pertinent History Cardiac: No Pertinent History Respiratory: No Pertinent History Gastrointestinal: No Pertinent History Genitourinary: No Pertinent History Musculoskeletal: Orthopedic Surgery Male Surgical History: No Pertinent History Other Surgical History: 2 knee replacements right knee. Left shoulder surgery (states "put it together and put a screw in it") 05/02/2020 PT STATES THAT HE IS AWAITING AN ADDITIONAL RIGHT KNEE SURGERY. TRYING TO GET HIS DIABETES UNDER CONTROL - Social History Smoking Status: Current every day smoker How long have you smoked: years Exposure to second hand smoke: No Drug Use: marijuana Patient Lives Alone: No - Nursing Vital Signs Nursing Vital Signs: Initial Vital Signs Temperature 98.1 F 09/25/20 11:25 Pulse Rate 111 H 09/25/20 11:25 Respiratory Rate 22 09/25/20 11:25 Blood Pressure 148/115 09/25/20 11:25 O2 Sat by Pulse Oximetry 100 09/25/20 11:25 Pain Scale Pain Intensity 4 - Physical Exam General Appearance: no apparent distress, alert Eyes, Ears, Nose, Throat Exam: normal ENT inspection, pharynx normal Neck Exam: normal inspection, non-tender, supple, full range of motion Cardiovascular/Respiratory Exam: normal breath sounds, tachycardia Back Exam: normal inspection, normal range of motion Legs Exam: bilateral leg: non-tender, normal inspection, normal range of motion, no evidence of injury Knees Exam: right knee: bone tenderness (Tibial tuberosity area), joint effusion, nodules, pain, soft tissue tenderness, swelling (4 x 3 cm area of erythema redness swelling on the medial joint line area. Warm tender to touch. Firm in consistency. Negative fluctuation.), left knee: non-tender, normal inspection, normal range of motion, no evidence of injury Ankle Exam: bilateral ankle: non-tender, normal inspection, normal range of motion Foot Exam: bilateral foot: non-tender Neuro/Tendon Exam: normal sensation, normal motor functions Mental Status Exam: alert, oriented x 3, cooperative Skin Exam: normal color SpO2 Interpretation: normal SpO2: 98 O2 Delivery: Room Air Ordered Tests: Active Orders 24 hr Category Date Time Status IV Insertion STAT Care 09/25/20 11:47 Completed KNEE (MIN 4 VIEW) Stat Exams 09/25/20 13:29 Completed BLOOD CULTURE Stat Lab 09/25/20 12:30 Received CBC W DIFF Stat Lab 09/25/20 12:00 Completed CMP Stat Lab 09/25/20 12:00 Completed Lactic Acid Stat Lab 09/25/20 11:47 Completed SED RATE [Erythrocyte Sedimentation Rate] Stat Lab 09/25/20 15:00 Completed Uric Acid Stat Lab 09/25/20 12:00 Completed Medication Summary Discontinued Medications Generic Name Dose Route Start Last Admin Trade Name Freq PRN Reason Stop Dose Admin Clindamycin HCl/Dextrose 900 mg in 50 mls @ 100 mls/hr 09/25/20 11:48 09/25/20 13:22 Clindamycin-D5w 900 Mg/50 Ml IV 09/25/20 12:17 Infused STAT STA Infusion Clindamycin HCl/Dextrose Confirm 09/25/20 11:51 Clindamycin-D5w 900 Mg/50 Ml Administered 09/25/20 11:52 Dose 900 mg in 50 mls @ ud IV .STK-MED ONE Morphine Sulfate 4 mg 09/25/20 11:47 09/25/20 11:53 Morphine Sulfate 4 Mg Inj IV 09/25/20 11:48 4 mg STAT ONE Administration Morphine Sulfate Confirm 09/25/20 11:50 Morphine Sulfate 4 Mg Inj Administered 09/25/20 11:51 Dose 4 mg .ROUTE .STK-MED ONE Morphine Sulfate 4 mg 09/25/20 13:21 09/25/20 13:36 Morphine Sulfate 4 Mg Inj IV 09/25/20 13:22 4 mg STAT ONE Administration Morphine Sulfate Confirm 09/25/20 13:35 Morphine Sulfate 4 Mg Inj Administered 09/25/20 13:36 Dose 4 mg .ROUTE .STK-MED ONE Ondansetron HCl 4 mg 09/25/20 11:47 09/25/20 11:53 Zofran 4 Mg/2 Ml Vial IV 09/25/20 11:48 4 mg STAT ONE Administration Ondansetron HCl Confirm 09/25/20 11:50 Zofran 4 Mg/2 Ml Vial Administered 09/25/20 11:51 Dose 4 mg .ROUTE .STK-MED ONE Lab/Rad Data: Laboratory Result Diagrams 09/25/20 12:00 09/25/20 12:00 Laboratory Results 09/25/20 09/25/20 09/25/20 Range/Units 15:00 12:00 12:00 WBC (4.0-10.5) K/mm3 RBC (4.1-5.6) M/mm3 Hgb (12.5-18.0) gm/dl Hct (42-50) % MCV (78-100) fl MCH (26-32) pg MCHC (32-36) g/dl RDW (11.5-14.0) % Plt Count (150-450) K/mm3 MPV (7.5-11.0) fl Gran % (36.0-66.0) % Eos # (Auto) (0-0.5) Absolute Lymphs (auto) (1.0-4.6) Absolute Monos (auto) (0.0-1.3) Lymphocytes % (24.0-44.0) % Monocytes % (0.0-12.0) % Eosinophils % (0.00-5.0) % Basophils % (0.0-0.4) % Absolute Granulocytes (1.4-6.9) Basophils # (0-0.4) ESR 17 H (0-15) mm/hr Sodium 137 (137-145) mmol/L Potassium 4.4 (3.5-5.1) mmol/L Chloride 98 (98-107) mmol/L Carbon Dioxide 26 (22-30) mmol/L Anion Gap 17.2 H (5-15) MEQ/L BUN 15 (9-20) mg/dL Creatinine 0.80 (0.66-1.25) mg/dL Estimated GFR > 60.0 ML/MIN Glucose 131 H (74-106) mg/dL Lactic Acid (0.4-2.0) Uric Acid 4.9 (3.5-7.2) mg/dL Calcium 10.0 (8.4-10.2) mg/dL Total Bilirubin 0.50 (0.2-1.3) mg/dL AST 18 (17-59) U/L ALT 11 (0-50) U/L Alkaline Phosphatase 79 (38-126) U/L Serum Total Protein 7.5 (6.3-8.2) g/dL Albumin 4.4 (3.5-5.0) g/dL 09/25/20 09/25/20 Range/Units 12:00 11:47 WBC 7.4 (4.0-10.5) K/mm3 RBC 5.82 H (4.1-5.6) M/mm3 Hgb 17.0 (12.5-18.0) gm/dl Hct 51.5 H (42-50) % MCV 88.5 (78-100) fl MCH 29.2 (26-32) pg MCHC 33.0 (32-36) g/dl RDW 12.8 (11.5-14.0) % Plt Count 256 (150-450) K/mm3 MPV 10.5 (7.5-11.0) fl Gran % 64.2 (36.0-66.0) % Eos # (Auto) 0.09 (0-0.5) Absolute Lymphs (auto) 1.68 (1.0-4.6) Absolute Monos (auto) 0.86 (0.0-1.3) Lymphocytes % 22.7 L (24.0-44.0) % Monocytes % 11.6 (0.0-12.0) % Eosinophils % 1.2 (0.00-5.0) % Basophils % 0.3 (0.0-0.4) % Absolute Granulocytes 4.76 (1.4-6.9) Basophils # 0.02 (0-0.4) ESR (0-15) mm/hr Sodium (137-145) mmol/L Potassium (3.5-5.1) mmol/L Chloride (98-107) mmol/L Carbon Dioxide (22-30) mmol/L Anion Gap (5-15) MEQ/L BUN (9-20) mg/dL Creatinine (0.66-1.25) mg/dL Estimated GFR ML/MIN Glucose (74-106) mg/dL Lactic Acid 1.4 (0.4-2.0) Uric Acid (3.5-7.2) mg/dL Calcium (8.4-10.2) mg/dL Total Bilirubin (0.2-1.3) mg/dL AST (17-59) U/L ALT (0-50) U/L Alkaline Phosphatase (38-126) U/L Serum Total Protein (6.3-8.2) g/dL Albumin (3.5-5.0) g/dL - Progress Progress: improved, re-examined Progress Note: 09/25/20 14:27 He is given symptomatic treatment for pain. Given a dose of clindamycin. Has normal white count, grossly unremarkable chemistries. No fluctuation as of right now showing abscess that needs to be drained immediately. Discussed with Dr. Dunbar who will evaluate patient tomorrow and will continue with antibiotics to go home along with pain medications. Counseled pt/family regarding: lab results, diagnosis, need for follow-up, rad results - Departure Departure Disposition: Home Clinical Impression: Cellulitis of knee, right Condition: Stable Critical Care Time: No Referrals: HARLEY NUÑEZ NP [Primary Care Provider] - Follow Up with PCP/3 days RIKA DUNBAR Jr., MD [NON-STAFF PHY W/O PRIVILEGES] - (Go to his office tomorrow morning) Instructions: MRSA (DC), Cellulitis (Skin Infection), Adult (DC) Additional Instructions: Take pain medications as needed. Continue with antibiotics. Follow-up with Dr. Dunbar tomorrow morning for reevaluation. Return to ER earlier for increasing pain swelling redness or if develop fever chills Prescriptions: Hydrocodone/APAP 5/325 [[place] 5/325 mg] 1 each PO Q6H PRN PRN #6 tablet MDD 4 PRN Reason: Pain Clindamycin HCl 150 mg [Cleocin 150 mg Capsule] 2 cap PO QID #56 capsule
== END 2020-09-25 14:35 | disposition home or self-care (01) ==
LOC: ED 11:18
DX: L03.115 Cellulitis of right lower limb (principal)
CPT/HCPCS: 36000; 36415; 73564; 80053; 83605; 84550; 85025; 85652; 87040; 96374; 96375; 96376; 99284; J2270; J2405

== ENCOUNTER 2021-01-26 23:38 | Observation (INO) | payer MEDICARE ==
[2021-01-27] MEDS ORDERED: Sodium Chloride 0.9% 1000 ML 1,000 ML IV STA (00:06)
[2021-01-27] MEDS ORDERED: MORPHINE SULFATE 4 MG INJ IV ONE ×2 (00:06→02:03)
[2021-01-27] MEDS ORDERED: Zofran 4 MG/2 ML VIAL IV ONE (00:06)
[2021-01-27] MEDS ORDERED: Pepcid 20 MG VIAL IV ONE ×2 (00:06→00:11)
[2021-01-27] MEDS ORDERED: BABY ASPIRIN 81 MG CHEW PO ONE (00:06)
[2021-01-27] MEDS ORDERED: BABY ASPIRIN 81 MG CHEW ONE (00:10)
[2021-01-27] MEDS ORDERED: Zofran 4 MG/2 ML VIAL ONE (00:10)
[2021-01-27] MEDS ORDERED: MORPHINE SULFATE 4 MG INJ ONE ×2 (00:11→02:05)
[2021-01-27] MEDS ORDERED: Sodium Chloride 0.9% 1000 ML 1,000 ML ONE (00:11)
--- NOTE | 2021-01-27 00:14 | ERPHSYRPT ---
- History of Present Illness Time Seen by Provider: 01/26/21 23:41 Historian: patient Exam Limitations: no limitations Patient Subjective Stated Complaint: C/O chest pain over the past several days that changes in severity from 4-5. States, "I just don't fell well or right." C/O tingling at times to bilteral hands. Triage Nursing Assessment: Accucheck 60 in ambulance; patient is diabetic with a diabetic pump. No SOB. Alert and oriented X 4. Lungs clear. Physician History: 50 years old male with history of diabetes mellitus insulin-dependent, tobacco abuse, hypertension, chronic pain syndrome, pancreatitis presented in the ER with chief complaint of substernal/central dull aching to burning sensation mild to moderate intensity for the last 4 to 5 days and lately worsening. Denies associated nausea or vomiting. No shortness of breath. Patient reports having symptoms similar to this with pancreatitis. No diarrhea, fever or chills reported. Patient reports generalized weakness fatigue and tiredness and ti ngling sensation in the fingers and toes. Patient blood sugar was in 60s by EMS. Timing/Duration: day(s) (5), constant, gradual onset, worse Activities at Onset: rest Quality: aching, burning Location: substernal, central, epigastric Chest Pain Radiation: no radiation Severity of Pain-Max: moderate Severity of Pain-Current: moderate Modifying Factors: Improves With: nothing Associated Symptoms: heartburn Prior Chest Pain/Cardiac Workup: no prior chest pain, no prior cardiac workup Nitro Today/Relief: no nitro taken today Aspirin Treatment Today: no aspirin today Allergies/Adverse Reactions: No Known Drug Allergies Allergy (Verified 01/27/21 04:41) Home Medications: Hydrocodone/Acetaminophen [Hydrocodone-Acetamin 10-300 mg] 1 tab PO TID PRN PRN 01/26/21 [History] Quetiapine Fumarate 100 mg [Seroquel 100 MG] 300 mg PO HS 01/26/21 [History] Buprenorphine HCl [Belbuca] 900 mcg BC BID 01/27/21 [History] Clonazepam 0.5 mg PO BID 01/27/21 [History] Gabapentin Enacarbil [Horizant] 600 mg PO BID 01/27/21 [History] Hx Tetanus, Diphtheria Vaccination/Date Given: Yes Hx Influenza Vaccination/Date Given: No Hx Pneumococcal Vaccination/Date Given: No Immunizations Up to Date: Yes Travel Risk - International Travel Have you traveled outside of the country in past 3 weeks: No - Coronavirus Screening Are you exhibiting any of the following symptoms?: No Close contact with a COVID-19 positive Pt in past 14-21 Days: No - Vaccine Status Have you recieved a Covid-19 vaccination: Yes It Support [employer]: [employer] - Vaccination Dates Date of [employer] Vaccination: 09/10/20 - Review of Systems Constitutional: No Symptoms Eyes: No Symptoms Ears, Nose, & Throat: No Symptoms Respiratory: No Symptoms Cardiac: Chest Pain Abdominal/Gastrointestinal: Abdominal Pain Genitourinary Symptoms: No Symptoms Musculoskeletal: No Symptoms Skin: No Symptoms Neurological: Sensory Changes Psychological: Anxiety Endocrine: No Symptoms Hematologic/Lymphatic: No Symptoms Immunological/Allergic: No Symptoms - Past Medical History Pertinent Past Medical History: Yes Neurological History: No Pertinent History ENT History: No Pertinent History Cardiac History: No Pertinent History Respiratory History: No Pertinent History Endocrine Medical History: Diabetes Type II Musculoskeletal History: Arthritis GI Medical History: No Pertinent History History: No Pertinent History Psycho-Social History: Depression Male Reproductive Disorders: No Pertinent History Other Medical History: Chronic pain in right leg and goes to pain clinic for treatment; Dr. Keith - Past Surgical History Past Surgical History: Yes Neuro Surgical History: No Pertinent History Cardiac: No Pertinent History Respiratory: No Pertinent History Gastrointestinal: No Pertinent History Genitourinary: No Pertinent History Musculoskeletal: Orthopedic Surgery Male Surgical History: No Pertinent History Other Surgical History: 2 knee replacements right knee. Left shoulder surgery (states "put it together and put a screw in it") 05/02/2020 PT STATES THAT HE IS AWAITING AN ADDITIONAL RIGHT KNEE SURGERY. TRYING TO GET HIS DIABETES UNDER CONTROL - Social History Smoking Status: Current every day smoker How long have you smoked: 30 years Exposure to second hand smoke: No Drug Use: marijuana Patient Lives Alone: No - Nursing Vital Signs Nursing Vital Signs: Initial Vital Signs Pulse Rate 83 01/26/21 23:41 Respiratory Rate 20 01/26/21 23:41 Blood Pressure 146/91 01/26/21 23:41 O2 Sat by Pulse Oximetry 99 01/26/21 23:41 Pain Scale Pain Intensity 2 - Physical Exam General Appearance: no apparent distress, alert, anxiety Eye Exam: PERRL/EOMI, eyes nml inspection Ears, Nose, Throat Exam: normal ENT inspection, pharynx normal Neck Exam: normal inspection, non-tender, supple, full range of motion Respiratory Exam: normal breath sounds, lungs clear Cardiovascular Exam: regular rate/rhythm, normal heart sounds Gastrointestinal/Abdomen Exam: soft, normal bowel sounds, No tenderness Back Exam: normal inspection, normal range of motion Extremity Exam: normal inspection, pelvis stable Neurologic Exam: alert, oriented x 3, cooperative Skin Exam: normal color SpO2 Interpretation: normal SpO2: 99 O2 Delivery: Room Air - Course EKG Interpreted by Me: RATE (74), Sinus Rhythm, NORMAL AXIS, NORMAL INTERVALS, Other (PVC and PACs) Ordered Tests: Medication Summary Discontinued Medications Generic Name Dose Route Start Last Admin Trade Name Freq PRN Reason Stop Dose Admin Acetaminophen 650 mg 01/27/21 04:39 Tylenol 325 Mg PO 02/26/21 04:38 Q4H PRN PRN PAIN AND/OR FEVER Hydrocodone Bitart/Acetaminophen 1 tablet 01/27/21 09:29 Hydrocodone-Acetamin 10-325 Mg PO 02/01/21 09:28 TID PRN PRN PAIN Albuterol/Ipratropium 3 ml 01/27/21 04:39 Duoneb 0.5-3 Mg/3 Ml Neb IH 02/26/21 04:38 Q4HPRN PRN SHORTNESS OF BREATH/WHEEZING Aspirin 324 mg 01/27/21 00:06 01/27/21 00:13 Baby Aspirin 81 Mg Chew PO 01/27/21 00:07 324 mg STAT ONE Administration Aspirin Confirm 01/27/21 00:10 Baby Aspirin 81 Mg Chew Administered 01/27/21 00:11 Dose 324 mg .ROUTE .STK-MED ONE Clonazepam 0.5 mg 01/27/21 10:00 Clonazepam PO 02/26/21 09:59 BID RAMAN Famotidine 20 mg 01/27/21 00:06 01/27/21 00:14 Pepcid 20 Mg Vial IV 01/27/21 00:07 20 mg STAT ONE Administration Famotidine Confirm 01/27/21 00:11 Pepcid 20 Mg Vial Administered 01/27/21 00:12 Dose 20 mg IV .STK-MED ONE Famotidine 20 mg 01/27/21 10:00 01/27/21 09:08 Pepcid 20 Mg Vial IV 02/26/21 09:59 20 mg Q12HT RAMAN Administration Sodium Chloride 1,000 mls @ 999 mls/hr 01/27/21 00:06 01/27/21 01:27 Sodium Chloride 0.9% 1000 Ml IV 01/27/21 01:06 Infused .Q1H1M STA Infusion Sodium Chloride Confirm 01/27/21 00:11 Sodium Chloride 0.9% 1000 Ml Administered 01/27/21 00:12 Dose 1,000 mls @ ud .ROUTE .STK-MED ONE Magnesium Sulfate/Dextrose 100 mls @ 100 mls/hr 01/27/21 02:00 01/27/21 01:49 Magnesium 1 Gm / 100 Ml D5w IV 01/27/21 03:59 100 mls/hr Q1H RAMAN Administration Magnesium Sulfate/Dextrose Confirm 01/27/21 01:48 Magnesium 1 Gm / 100 Ml D5w Administered 01/27/21 01:49 Dose 200 mls @ ud IV .STK-MED ONE Sodium Chloride 1,000 mls @ 100 mls/hr 01/27/21 04:39 01/27/21 05:22 Sodium Chloride 0.9% 1000 Ml IV 02/26/21 04:38 100 mls/hr .Q10H RAMAN Administration Insulin Human Lispro 0 unit 01/27/21 04:39 Humalog SQ 02/26/21 04:38 UD PRN HYPERGLYCEMIA Miscellaneous Information 1 each 01/27/21 09:45 Medication Intervention 02/26/21 09:44 .RN TO CHECK RAMAN Miscellaneous Information 1 each 01/27/21 09:45 Medication Intervention 02/26/21 09:44 .RN TO CHECK RAMAN Morphine Sulfate 4 mg 01/27/21 00:06 01/27/21 00:19 Morphine Sulfate 4 Mg Inj IV 01/27/21 00:07 4 mg STAT ONE Administration Morphine Sulfate Confirm 01/27/21 00:11 Morphine Sulfate 4 Mg Inj Administered 01/27/21 00:12 Dose 4 mg .ROUTE .STK-MED ONE Morphine Sulfate 4 mg 01/27/21 02:03 01/27/21 02:08 Morphine Sulfate 4 Mg Inj IV 01/27/21 02:04 4 mg STAT ONE Administration Morphine Sulfate Confirm 01/27/21 02:05 Morphine Sulfate 4 Mg Inj Administered 01/27/21 02:06 Dose 4 mg .ROUTE .STK-MED ONE Morphine Sulfate 2 mg 01/27/21 04:39 01/27/21 06:13 Morphine Sulfate 2 Mg Inj IV 02/01/21 04:38 2 mg Q4H PRN PRN Administration PAIN Ondansetron HCl 4 mg 01/27/21 00:06 01/27/21 00:16 Zofran 4 Mg/2 Ml Vial IV 01/27/21 00:07 4 mg STAT ONE Administration Ondansetron HCl Confirm 01/27/21 00:10 Zofran 4 Mg/2 Ml Vial Administered 01/27/21 00:11 Dose 4 mg .ROUTE .STK-MED ONE Ondansetron HCl 4 mg 01/27/21 04:39 Zofran 4 Mg/2 Ml Vial IV 02/26/21 04:38 Q6H PRN PRN NAUSEA/VOMITING Quetiapine Fumarate 300 mg 01/27/21 22:00 Seroquel 100 Mg PO 02/26/21 21:59 HS [facility] Lab/Rad Data: Laboratory Result Diagrams 01/27/21 00:40 01/27/21 00:40 Laboratory Results 01/27/21 01/27/21 01/27/21 Range/Units 03:18 02:47 00:40 WBC (4.0-10.5) K/mm3 RBC (4.1-5.6) M/mm3 Hgb (12.5-18.0) gm/dl Hct (42-50) % MCV (78-100) fl MCH (26-32) pg MCHC (32-36) g/dl RDW (11.5-14.0) % Plt Count (150-450) K/mm3 MPV (7.5-11.0) fl Gran % (36.0-66.0) % Eos # (Auto) (0-0.5) Absolute Lymphs (auto) (1.0-4.6) Absolute Monos (auto) (0.0-1.3) Lymphocytes % (24.0-44.0) % Monocytes % (0.0-12.0) % Eosinophils % (0.00-5.0) % Basophils % (0.0-0.4) % Absolute Granulocytes (1.4-6.9) Basophils # (0-0.4) Sodium (137-145) mmol/L Potassium (3.5-5.1) mmol/L Chloride (98-107) mmol/L Carbon Dioxide (22-30) mmol/L Anion Gap (5-15) MEQ/L BUN (9-20) mg/dL Creatinine (0.66-1.25) mg/dL Estimated GFR ML/MIN Glucose (74-106) mg/dL Calcium (8.4-10.2) mg/dL Total Bilirubin (0.2-1.3) mg/dL AST (17-59) U/L ALT (0-50) U/L Alkaline Phosphatase (38-126) U/L Troponin I < 0.012 < 0.012 (0.000-0.034) ng/mL NT-Pro-B Natriuret Pep (0-900) pg/mL Serum Total Protein (6.3-8.2) g/dL Albumin (3.5-5.0) g/dL Lipase (23-300) U/L SARS-CoV-2 (PCR) NEGATIVE (NEGATIVE) 01/27/21 01/27/21 01/27/21 Range/Units 00:40 00:40 00:40 WBC 5.0 (4.0-10.5) K/mm3 RBC 4.90 (4.1-5.6) M/mm3 Hgb 13.7 (12.5-18.0) gm/dl Hct 43.9 (42-50) % MCV 89.6 (78-100) fl MCH 28.0 (26-32) pg MCHC 31.2 L (32-36) g/dl RDW 13.5 (11.5-14.0) % Plt Count 149 L (150-450) K/mm3 MPV 10.5 (7.5-11.0) fl Gran % 44.5 (36.0-66.0) % Eos # (Auto) 0.16 (0-0.5) Absolute Lymphs (auto) 2.09 (1.0-4.6) Absolute Monos (auto) 0.50 (0.0-1.3) Lymphocytes % 41.9 (24.0-44.0) % Monocytes % 10.0 (0.0-12.0) % Eosinophils % 3.2 (0.00-5.0) % Basophils % 0.4 (0.0-0.4) % Absolute Granulocytes 2.22 (1.4-6.9) Basophils # 0.02 (0-0.4) Sodium 138 (137-145) mmol/L Potassium 3.8 (3.5-5.1) mmol/L Chloride 102 (98-107) mmol/L Carbon Dioxide 28 (22-30) mmol/L Anion Gap 12.1 (5-15) MEQ/L BUN 16 (9-20) mg/dL Creatinine 1.05 (0.66-1.25) mg/dL Estimated GFR > 60.0 ML/MIN Glucose 109 H (74-106) mg/dL Calcium 8.4 (8.4-10.2) mg/dL Total Bilirubin 0.10 L (0.2-1.3) mg/dL AST 15 L (17-59) U/L ALT 9 (0-50) U/L Alkaline Phosphatase 51 (38-126) U/L Troponin I (0.000-0.034) ng/mL NT-Pro-B Natriuret Pep 52.6 (0-900) pg/mL Serum Total Protein 5.9 L (6.3-8.2) g/dL Albumin 3.3 L (3.5-5.0) g/dL Lipase 28 (23-300) U/L SARS-CoV-2 (PCR) (NEGATIVE) - Progress Progress: improved Air Movement: good Progress Note: 01/27/21 02:00 50 years old is evaluated for substernal/epigastric area pain. EKG showed PACs/PVCs. Given 2 g of mag. Given symptomatic treatment for pain. Otherwise work-up is grossly unremarkable. Patient has multiple risk factors for CAD, discussed with and patient is being admitted for observation. Blood Culture(s) Obtained: No Antibiotics given: No Discussed with : Cliff Will see patient in: hospital (observation) Counseled pt/family regarding: lab results, diagnosis, rad results - Departure Departure Disposition: Observation Clinical Impression: Chest pain, rule out acute myocardial infarction, Generalized weakness Condition: Stable Critical Care Time: No
[2021-01-27 00:59] LABS: Absolute Neutrophil Ct (ANC) 2.22 (1.4-6.9); BASOPHIL % 0.4 % (0.0-0.4); Basophil (Absolute #) 0.02 (0-0.4); Eosinophil % 3.2 % (0.00-5.0); Eosinophil (Absolute #) 0.16 (0-0.5); Hematocrit 43.9 % (42-50); Hemoglobin 13.7 gm/dl (12.5-18.0); Lymphocyte (Absolute #) 2.09 (1.0-4.6); Lymphocytes % 41.9 % (24.0-44.0); Mean Cell Volume 89.6 fl (78-100); Mean Corpuscular Hgb Concent. 31.2 g/dl (32-36); Mean Platelet Volume 10.5 fl (7.5-11.0); Neutrophil % 44.5 % (36.0-66.0); Platelet Count 149 K/mm3 (150-450); Red Cell Distribution Width 13.5 % (11.5-14.0)
[2021-01-27 01:10] LABS: ALBUMIN 3.3 g/dL (3.5-5.0); ALKALINE PHOSPHATASE 51 U/L (38-126); ANION GAP 12.1 MEQ/L (5-15); BLOOD UREA NITROGEN 16 mg/dL (9-20); CHLORIDE 102 mmol/L (98-107); Calcium 8.4 mg/dL (8.4-10.2); Carbon Dioxide 28 mmol/L (22-30); Creatinine 1 1.05 mg/dL (0.66-1.25); EST GLOMERULAR FILTRATION RATE > 60.0 ML/MIN; Glucose 109 mg/dL (74-106); NT PRO BNP 52.6 pg/mL (0-900); Potassium 3.8 mmol/L (3.5-5.1); SGOT/AST 15 U/L (17-59); SGPT/ALT 9 U/L (0-50); SODIUM 138 mmol/L (137-145); Total Protein 5.9 g/dL (6.3-8.2)
[2021-01-27] MEDS ORDERED: Magnesium 1 Gm / 100 Ml D5W*** 200 ML IV ONE (01:48)
[2021-01-27] MEDS: Magnesium 1 Gm / 100 Ml D5W*** 100 ML IV SCH (01:49)
[2021-01-27] MEDS ORDERED: Zofran 4 MG/2 ML VIAL IV PRN (04:39)
[2021-01-27] MEDS ORDERED: TYLENOL 325 MG PO PRN (04:39)
[2021-01-27] MEDS ORDERED: HUMALOG SQ PRN (04:39)
[2021-01-27] MEDS ORDERED: MORPHINE SULFATE 2 MG INJ IV PRN (04:39)
[2021-01-27] MEDS ORDERED: DUONEB 0.5-3 MG/3 ml Neb IH PRN (04:39)
[2021-01-27] MEDS ORDERED: Sodium Chloride 0.9% 1000 ML 1,000 ML IV SCH (04:39)
[2021-01-27 08:59] VITALS: BP 142/88; PULSE 62
--- NOTE | 2021-01-27 09:07 | XRAY ---
Indication: Chest pain. Comparison: February 28, 2020. Portable chest is now clear again with a few incidental tiny calcified granulomas. Heart not enlarged. Bony thorax intact again with left glenoid orthopedic screw. No new/acute findings.
[2021-01-27] MEDS ORDERED: HYDROCODONE PO PRN (09:16)
[2021-01-27] MEDS ORDERED: ACETAMINOPHEN PO PRN (09:16)
--- NOTE | 2021-01-27 09:16 | SSS ---
DISCHARGE DIAGNOSIS: CHEST WALL PAIN. HISTORY: The patient is a 50 year-old white male patient who presented to the emergency room stating that over the past several days he had chest discomfort rating up to 4 or 5 and he just did not feel right. The area was in the sternal region. He actually pointed to an area in his chest that was mostly tender. The patient denies any previous history of coronary artery disease. PAST MEDICAL/SURGICAL HISTORY: Significant for a crush injury which he sustained approximately three years ago. He has knee problems in fact he had two different knee surgeries and still quite enlarged on the right side. Diabetes mellitus type II. He is currently on no medication for it. Depression. HOME MEDICATIONS: Belbuca 75 mcg b.i.d., gabapentin 600 mg daily, [place] 7/325 t.i.d., Seroquel 100 mg tablet three tablets at night. ALLERGIES: NKDA. SOCIAL HISTORY: He has history of using marijuana. PHYSICAL EXAMINATION: The patient's vital signs on admission showed his pulse to be 83, respiratory rate 20, blood pressure 146/91. O2 saturation 99% on room air. HEENT: Normocephalic, atraumatic. Pupils equal round reactive to light. Extraocular movements intact. Oropharynx is pink and moist. NECK: Supple without lymphadenopathy, thyromegaly or JVD. CHEST: Clear to auscultation. HEART: Regular rate and rhythm without murmurs, rubs or gallops. There is a tender area on the left approximately sixth rib at its attachment to the sternum which is exquisitely tender to palpation. ABDOMEN: Soft. No palpable masses. EXTREMITIES: Without cyanosis, clubbing or edema. NEUROLOGIC: The patient is alert and oriented x3 with no focal deficits noted. LAB DATA AND TESTS: The patient's laboratory studies have shown his troponins all to be less than 0.012 since his admission. The patient's COVID test was negative. His lipase was 28. His metabolic panel showed sugar of 109, BUN 16, creatinine 1.05. Electrolytes were normal. His liver enzymes were normal. ProBNP was normal. CBC was normal. His telemetry tracings shows occasional normal PAC and his 12-lead EKG showed normal axis and normal R-wave across the precordial leads and there was 1 PVC noted and is in sinus rhythm, otherwise there were no significant ST or T wave changes noted on his EKG. HOSPITAL COURSE: The patient at this time is comfortable. He has been ruled out for myocardial infarction. With his history of diabetes, he is more of increased however for coronary artery disease and we plan to discharge him home presently and follow him up as an outpatient, calcium score and possible cardiology consultation for a stress test of the chemical nature if the patient cannot walk on a treadmill. The patient is currently 100% disabled and does not have to worry about going back to work. We have asked him to take it easy over the next few days until he gets a chance to get further evaluated as an outpatient.
[2021-01-27] MEDS ORDERED: HYDROCODONE-ACETAMIN 10-325 MG PO PRN (09:29)
[2021-01-27] MEDS ORDERED: MEDICATION INTERVENTION MC SCH ×2 (09:45)
[2021-01-27] MEDS ORDERED: BUPRENORPHINE HCL 900 MCG BC SCH (10:00)
[2021-01-27] MEDS ORDERED: clonazePAM PO SCH (10:00)
[2021-01-27] MEDS ORDERED: GABAPENTIN ENACARBIL 600 MG PO SCH (10:00)
[2021-01-27] MEDS ORDERED: Pepcid 20 MG VIAL IV SCH (10:00)
[2021-01-27] MEDS ORDERED: Seroquel 100 MG PO SCH (22:00)
[2021-01-28 11:39] VITALS: O2SAT 99
== END 2021-01-27 10:05 | disposition home or self-care (01) ==
LOC: ED 23:38 → MED SURG 01-27 04:38
PROVIDERS: ADMIT Family Medicine; ATTEND Family Medicine
DX: R07.89 Other chest pain (principal); E11.9 Type 2 diabetes mellitus without complications; Z79.4 Long term (current) use of insulin; Z96.41 Presence of insulin pump (external) (internal); I10 Essential (primary) hypertension; Z79.899 Other long term (current) drug therapy; Z20.828 Contact with and (suspected) exposure to other viral communicable diseases
CPT/HCPCS: 36000; 36415; 71045; 80053; 82947; 83690; 83880; 84484; 85025; 93005; 93041; 93268; 94760; 96360; 96374; 96375; 96376; 99285; G0378; U0003; J2270; J2405; J3475; A9270-GY

== ENCOUNTER 2021-12-09 17:40 | Emergency (ER) | payer MEDICARE ==
[2021-12-09 17:50] VITALS: BP 142/91; O2SAT 98
[2021-12-09] MEDS ORDERED: BACTRIM DS TABLET PO STA (18:00)
[2021-12-09] MEDS ORDERED: TORAdol 30 mg Injection IM ONE (18:00)
--- NOTE | 2021-12-09 18:02 | ERPHSYRPT ---
- History of Present Illness Time Seen by Provider: 12/09/21 17:56 Patient Subjective Stated Complaint: Pt states "I think I was bitten by a bug this morning and it really hurts. " Triage Nursing Assessment: Pt presented alert and oriented X 3, skin pwd. Pt ambulates with an upright steady gait, able to speak in clear full setences pt has slight swelling notedc to his left elbow. Physician History: Patient is a 51-year-old male presents to our ED with complaints of insect bite to his left proximal forearm. Patient states he was performing some yard work when he felt what he believes to be an insect bite. Several hours later he observed the area to be very tender and red. 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 Patient has point tenderness at the area of involvement. No trauma. No fever. No lymphangitis. No numbness tingling or weakness. Pain is well localized. No radiation. Patient voices no other complaints or concerns at this time. Timing/Duration: today Severity: moderate Modifying Factors: Improves With: other (Palpation to the area of involvement reproduces pain) Associated Symptoms: denies symptoms Allergies/Adverse Reactions: No Known Drug Allergies Allergy (Verified 01/27/21 04:41) Home Medications: Quetiapine Fumarate 100 mg [Seroquel 100 MG] 300 mg PO HS 01/26/21 [History] clonazePAM [Clonazepam] 0.5 mg PO BID 01/27/21 [History] Buprenorphine HCl/Naloxone HCl [Buprenorphin-Naloxon 8-2 mg Sl] 1 each SL DAILY 12/09/21 [History] Hx Tetanus, Diphtheria Vaccination/Date Given: Yes Hx Influenza Vaccination/Date Given: No Hx Pneumococcal Vaccination/Date Given: No Immunizations Up to Date: Yes Travel Risk - International Travel Have you traveled outside of the country in past 3 weeks: No - Coronavirus Screening Are you exhibiting any of the following symptoms?: No Close contact with a COVID-19 positive Pt in past 14-21 Days: No - Vaccine Status Have you recieved a Covid-19 vaccination: Yes [employer]: [employer] - Vaccination Dates Date of Brenden & Brenden Vaccination [PCS.[email or web address].[email or web address]]: 09/10/20 - Review of Systems Constitutional: No Symptoms, No Fever, No Chills Eyes: No Symptoms Ears, Nose, & Throat: No Symptoms Respiratory: No Symptoms, No Cough, No Dyspnea Cardiac: No Symptoms, No Chest Pain, No Edema, No Syncope Abdominal/Gastrointestinal: No Symptoms, No Abdominal Pain, No Nausea, No Vomiting, No Diarrhea Genitourinary Symptoms: No Symptoms, No Dysuria Musculoskeletal: No Symptoms, No Back Pain, No Neck Pain Skin: No Symptoms, No Rash Neurological: No Symptoms, No Dizziness, No Focal Weakness, No Sensory Changes Psychological: No Symptoms Endocrine: No Symptoms Hematologic/Lymphatic: No Symptoms Immunological/Allergic: No Symptoms All Other Systems: Reviewed and Negative - Past Medical History Pertinent Past Medical History: Yes Neurological History: No Pertinent History ENT History: No Pertinent History Cardiac History: No Pertinent History Respiratory History: No Pertinent History Endocrine Medical History: Diabetes Type II Musculoskeletal History: Arthritis GI Medical History: No Pertinent History History: No Pertinent History Psycho-Social History: Depression Male Reproductive Disorders: No Pertinent History Other Medical History: Chronic pain in right leg and goes to pain clinic for treatment; Dr. Keith - Past Surgical History Past Surgical History: Yes Neuro Surgical History: No Pertinent History Cardiac: No Pertinent History Respiratory: No Pertinent History Gastrointestinal: No Pertinent History Genitourinary: No Pertinent History Musculoskeletal: Orthopedic Surgery Male Surgical History: No Pertinent History Other Surgical History: 2 knee replacements right knee. Left shoulder surgery (states "put it together and put a screw in it") 05/02/2020 PT STATES THAT HE IS AWAITING AN ADDITIONAL RIGHT KNEE SURGERY. TRYING TO GET HIS DIABETES UNDER CONTROL - Social History Smoking Status: Current every day smoker How long have you smoked: 30 years Exposure to second hand smoke: No Drug Use: marijuana Patient Lives Alone: No - Nursing Vital Signs Nursing Vital Signs: Initial Vital Signs Temperature 97.2 F 12/09/21 17:44 Pulse Rate 76 12/09/21 17:44 Respiratory Rate 20 12/09/21 17:44 Blood Pressure 142/91 12/09/21 17:44 O2 Sat by Pulse Oximetry 98 12/09/21 17:44 Pain Scale Pain Intensity 6 - Physical Exam General Appearance: no apparent distress, alert Eye Exam: PERRL/EOMI, eyes nml inspection Ears, Nose, Throat Exam: normal ENT inspection, TMs normal, pharynx normal, moist mucous membranes Neck Exam: normal inspection, non-tender, supple, full range of motion Respiratory Exam: normal breath sounds, lungs clear, airway intact, No respiratory distress Cardiovascular Exam: regular rate/rhythm, normal heart sounds, normal peripheral pulses Gastrointestinal/Abdomen Exam: soft, normal bowel sounds, No tenderness, No mass Back Exam: normal inspection, normal range of motion, No CVA tenderness, No vertebral tenderness Extremity Exam: normal inspection, normal range of motion, pelvis stable, other (Left proximal forearm lateral aspect presents with a 1.5 cm area of cellulitis/induration. Mild tenderness. Extremities neurovascular intact distally. Compartments are soft. Cap refill less than 2 seconds.) Neurologic Exam: alert, oriented x 3, cooperative, normal mood/affect, nml cerebellar function, nml station & gait, sensation nml, No motor deficits Skin Exam: normal color, warm, dry, No rash Lymphatic Exam: No adenopathy SpO2 Interpretation: normal SpO2: 98 O2 Delivery: Room Air - Course Nursing assessment & vital signs reviewed: Yes Ordered Tests: Medication Summary Discontinued Medications Generic Name Dose Route Start Last Admin Trade Name Freq PRN Reason Stop Dose Admin Ketorolac Tromethamine 30 mg 12/09/21 18:00 12/09/21 18:03 Ketorolac Tromethamine 30 Mg/Ml Inj IM 12/09/21 18:01 30 mg STAT ONE Administration Trimethoprim/Sulfamethoxazole 1 tab 12/09/21 18:00 12/09/21 18:03 Smz/Tmp Ds Tablet 1 Tablet PO 12/09/21 18:01 1 tab STAT STA Administration - Progress Progress: improved Progress Note: Patient received Toradol for pain control. Patient received an oral dose of Bactrim in our ED. A prescription for Bactrim was forwarded to patient's pharmacy. [id number] analgesics to be taken as needed for pain control. No indication for further work-up. Patient agrees to follow-up with his primary care doctor within 48 hours for evaluation. Patient voices no other complaint or concerns at this time. Portions of this note were created with voice recognition technology. There may be grammatical, spelling, punctuation or sound alike errors 12/09/21 18:14 Counseled pt/family regarding: diagnosis, need for follow-up - Departure Departure Disposition: Home Clinical Impression: Cellulitis Condition: Stable Critical Care Time: No Referrals: HARLEY NUÑEZ NP [Primary Care Provider] - Follow up/PCP as directed Instructions: Insect Bites and Stings Additional Instructions: Discharge/Care Plan ROMARIO RUDOLPH was seen on 12/09/21 in the Emergency Room. The patient was counseled regarding Diagnosis,Lab results, Imaging studies, need for follow up and when to return to the Emergency Room. Prescriptions given: Discharge Note I have spoken with the patient and/or caregivers. I have explained the patient's condition, diagnosis and treatment plan based on the information available to me at this time. I have answered the patient's and/or caregiver's questions and addressed any concerns. The patient and/or caregivers have as good understanding of the patient's diagnosis, condition and treatment plan as can be expected at this point. The vital signs have been stable. The patient's condition is stable and appropriate for discharge from the emergency department. The patient will pursue further outpatient evaluation with the primary care ramone larson or other designated or consulting physician as outlined in the discharge instructions. The patient and/or caregivers are agreeable to this plan of care and follow-up instructions have been explained in detail. The patient and/or caregivers have received these instruction. The patient/and or caregivers are aware that any significant change in condition or worsening of symptoms should prompt an immediate return to this or the closest emergency department or call 911. Prescriptions: Smz/Tmp Ds Tablet [Bactrim Ds Tablet] 1 udtab PO BID 7 Days #14 tablet
[2021-12-09 18:16] VITALS: PULSE 78
== END 2021-12-09 18:15 | disposition home or self-care (01) ==
LOC: ED 17:40
DX: S50.862A Insect bite (nonvenomous) of left forearm, initial encounter (principal); L03.114 Cellulitis of left upper limb; W57.XXXA Bitten or stung by nonvenomous insect and other nonvenomous arthropods, initial encounter; Y93.H9 Activity, other involving exterior property and land maintenance, building and construction; Y92.007 Garden or yard of unspecified non-institutional (private) residence as the place of occurrence of the external cause; E11.9 Type 2 diabetes mellitus without complications; Z72.0 Tobacco use; Z79.899 Other long term (current) drug therapy; Z79.891 Long term (current) use of opiate analgesic
CPT/HCPCS: 96372; 99283; J1885; A9270-GY

== ENCOUNTER 2022-07-14 08:08 | Emergency (ER) | payer MEDICARE ==
--- NOTE | 2022-07-14 08:15 | ERPHSYRPT ---
- History of Present Illness Time Seen by Provider: 07/14/22 08:14 Source: patient Exam Limitations: no limitations Physician History: This is a 52-year-old white male patient of nurse practitioner Missy as well as patient of pain specialist Dr. Keith and fiberline supervisor Dr. Jaquez who presents with generalized vague, chronic symptoms of weakness and achiness. Patient states that he has not felt well in over a year and a half. His symptoms are worsening. Patient also sees an infectious disease specialist Dr. Laguerre and patient is being treated for MRSA. 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 Patient has a PICC line in place and patient receives antibiotic infusion at home. Patient is diabetic, he has chronic knee pain and peripheral neuropathy, arthritis and depression. Patient had an appointment to see his fiberline supervisor Dr. Jaquez at approximately 9:00 today and his pain specialist at 1:00 this afternoon and he chose to come to the emergency department. Patient stated that he was out of his usual insulin and is using short acting insulin to control his blood sugar. On 07/01/2022 patient had labs drawn. His white count was 6, hemoglobin 11.2, sodium 136, potassium 5.1, blood sugar 137, sedimentation rate of 28 and a C- reactive protein level of 25. Patient denies fever. He denies shortness of breath, he denies chest pain. He has no abdominal pain. Timing/Duration: other (Patient has not been feeling well for over a year and a half but her symptoms are worsening) Severity: mild Modifying Factors: Improves With: nothing Associated Symptoms: weakness, No abdominal pain, No shortness of breath, No chest pain, No fever Allergies/Adverse Reactions: No Known Drug Allergies Allergy (Verified 01/27/21 04:41) Home Medications: Quetiapine Fumarate 100 mg [Seroquel 100 MG] 300 mg PO HS 01/26/21 [History] clonazePAM [Clonazepam] 0.5 mg PO BID 01/27/21 [History] Buprenorphine HCl/Naloxone HCl [Buprenorphin-Naloxon 8-2 mg Sl] 1 each SL DAILY 12/09/21 [History] Gabapentin Enacarbil [Horizant] 600 mg PO DAILY 07/14/22 [History] Micafungin Sodium [Micafungin] 100 mg IV DAILY 07/14/22 [History] OXcarbazepine [Trileptal] 300 mg PO DAILY 07/14/22 [History] Oxycodone HCl/Acetaminophen [Oxycodon-Acetaminophen 7.5-300] 1 each PO DAILY 07/14/22 [History] Testosterone Cypionate 200 mg IM WEEKLY 07/14/22 [History] Hx Tetanus, Diphtheria Vaccination/Date Given: Yes Hx Influenza Vaccination/Date Given: No Hx Pneumococcal Vaccination/Date Given: No Travel Risk - International Travel Have you traveled outside of the country in past 3 weeks: No - Coronavirus Screening Are you exhibiting any of the following symptoms?: No Close contact with a COVID-19 positive Pt in past 14-21 Days: No - Vaccine Status Have you recieved a Covid-19 vaccination: Yes Planning Assistant: Waygo - Vaccination Dates Date of Waygo Vaccination [PCS.COV.[email or web address]]: 09/10/20 - Review of Systems Constitutional: Weakness Eyes: No Symptoms Ears, Nose, & Throat: No Symptoms Respiratory: No Symptoms Cardiac: No Symptoms Abdominal/Gastrointestinal: No Symptoms Genitourinary Symptoms: No Symptoms Musculoskeletal: No Symptoms Skin: No Symptoms Neurological: No Symptoms Psychological: Depression Endocrine: No Symptoms Hematologic/Lymphatic: No Symptoms Immunological/Allergic: No Symptoms All Other Systems: Reviewed and Negative - Past Medical History Pertinent Past Medical History: Yes Neurological History: No Pertinent History ENT History: No Pertinent History Cardiac History: No Pertinent History Respiratory History: No Pertinent History Endocrine Medical History: Diabetes Type II Musculoskeletal History: Arthritis GI Medical History: No Pertinent History History: No Pertinent History Psycho-Social History: Depression Male Reproductive Disorders: No Pertinent History Other Medical History: Chronic pain in right leg and goes to pain clinic for treatment; Dr. Keith - Past Surgical History Past Surgical History: Yes Neuro Surgical History: No Pertinent History Cardiac: No Pertinent History Respiratory: No Pertinent History Gastrointestinal: No Pertinent History Genitourinary: No Pertinent History Musculoskeletal: Orthopedic Surgery Male Surgical History: No Pertinent History Other Surgical History: 2 knee replacements right knee. Left shoulder surgery (states "put it together and put a screw in it") 05/02/2020 PT STATES THAT HE IS AWAITING AN ADDITIONAL RIGHT KNEE SURGERY. TRYING TO GET HIS DIABETES UNDER CONTROL - Social History Smoking Status: Current every day smoker How long have you smoked: 30 years Exposure to second hand smoke: No Drug Use: marijuana Patient Lives Alone: No - Nursing Vital Signs Nursing Vital Signs: Initial Vital Signs Temperature 97.8 F 07/14/22 08:14 Pulse Rate 64 07/14/22 08:14 Respiratory Rate 20 07/14/22 08:14 Blood Pressure 144/86 07/14/22 08:14 O2 Sat by Pulse Oximetry 100 07/14/22 08:14 Pain Scale Pain Intensity 0 - Physical Exam General Appearance: no apparent distress, alert, thin Eye Exam: PERRL/EOMI Ears, Nose, Throat Exam: normal ENT inspection, moist mucous membranes Neck Exam: normal inspection, non-tender, supple, full range of motion Respiratory Exam: normal breath sounds, lungs clear, airway intact, No chest tenderness, No respiratory distress Cardiovascular Exam: regular rate/rhythm, normal heart sounds, normal peripheral pulses Gastrointestinal/Abdomen Exam: soft, normal bowel sounds, No tenderness Rectal Exam: not done Back Exam: normal inspection, normal range of motion, No CVA tenderness, No vertebral tenderness Extremity Exam: normal range of motion, pelvis stable, other (Right anterior knee is without redness. No obvious abscess or cellulitis present. No obvious fluid collection) Neurologic Exam: alert, oriented x 3, cooperative, relief pharmacist II-XII nml as tested, normal mood/affect, nml cerebellar function, nml station & gait, sensation nml Skin Exam: normal color, warm, dry Lymphatic Exam: adenopathy SpO2 Interpretation: normal O2 Delivery: Room Air Ordered Tests: Active Orders 24 hr Category Date Time Status EKG-ER Only STAT Care 07/14/22 08:29 Active IV Insertion STAT Care 07/14/22 08:29 Active Pulse Oximetry (ED) STAT Care 07/14/22 08:29 Active AMYLASE Stat Lab 07/14/22 08:40 Completed BLOOD CULTURE Stat Lab 07/14/22 08:45 Received CBC W DIFF Stat Lab 07/14/22 08:29 Completed CMP Stat Lab 07/14/22 08:40 Completed LIPASE Stat Lab 07/14/22 08:40 Completed MAGNESIUM Stat Lab 07/14/22 08:40 Completed NT PRO BNP Stat Lab 07/14/22 08:40 Completed T4 (Thyroxine) Stat Lab 07/14/22 08:40 Completed TROPONIN Q4H Lab 07/14/22 08:40 Completed TROPONIN Q4H Lab 07/14/22 12:30 Ordered TROPONIN Q4H Lab 07/14/22 16:30 Ordered TSH [TSH, 3RD Generation] Stat Lab 07/14/22 08:40 Completed UA W/RFX UR CULTURE Stat Lab 07/14/22 10:32 Completed Medication Summary Discontinued Medications Generic Name Dose Route Start Last Admin Trade Name Sharifa PRN Reason Stop Dose Admin Sodium Chloride 1,000 mls @ 999 mls/hr 07/14/22 08:29 07/14/22 10:02 Sodium Chloride 0.9% 1000 Ml IV 07/14/22 09:29 Infused .Q1H1M STA Infusion Sodium Chloride Confirm 07/14/22 08:55 Sodium Chloride 0.9% 1000 Ml Administered 07/14/22 08:56 Dose 1,000 mls @ ud .ROUTE .[facility] Lab/Rad Data: Laboratory Result Diagrams 07/14/22 08:29 07/14/22 08:40 Laboratory Results 07/14/22 07/14/22 07/14/22 Range/Units 10:32 08:55 08:40 WBC (4.0-10.5) x10^3/uL RBC (4.1-5.6) x10^6/uL Hgb (12.5-18.0) g/dL Hct (42-50) % MCV (78-100) fL MCH (26-32) pg MCHC (32-36) g/dL RDW (11.5-14.0) % Plt Count (150-450) x10^3/uL MPV (7.5-11.0) fL Gran % (36.0-66.0) % Immature Gran % (Auto) (0.00-0.4) % Nucleat RBC Rel Count (0.00-0.1) % Eos # (Auto) (0-0.5) x10^3/uL Immature Gran # (Auto) (0.00-0.03) x10^3u/L Absolute Lymphs (auto) (1.0-4.6) x10^3/uL Absolute Monos (auto) (0.0-1.3) x10^3/uL Absolute Nucleated RBC (0.00-0.01) x10^3u/L Lymphocytes % (24.0-44.0) % Monocytes % (0.0-12.0) % Eosinophils % (0.00-5.0) % Basophils % (0.0-0.4) % Absolute Granulocytes (1.4-6.9) x10^3/uL Basophils # (0-0.4) x10^3/uL Sodium (137-145) mmol/L Potassium (3.5-5.1) mmol/L Chloride (98-107) mmol/L Carbon Dioxide (22-30) mmol/L Anion Gap (5-15) MEQ/L BUN (9-20) mg/dL Creatinine (0.66-1.25) mg/dL Estimated GFR ML/MIN Glucose (74-106) mg/dL Calcium (8.4-10.2) mg/dL Magnesium (1.6-2.3) mg/dL Total Bilirubin (0.2-1.3) mg/dL AST (17-59) U/L ALT (0-50) U/L Alkaline Phosphatase (38-126) U/L Troponin I (0.000-0.034) ng/mL NT-Pro-B Natriuret Pep (0-900) pg/mL Serum Total Protein (6.3-8.2) g/dL Albumin (3.5-5.0) g/dL Amylase < 30 L (30-110) U/L Lipase 13 L (23-300) U/L Thyroxine (T4) (5.53-10.96) ug/dL TSH 3rd Generation (0.47-4.68) mIU/L Urine Color Dark Yellow (Yellow) Urine Appearance Clear (Clear) Urine pH 5.5 (4.6-8.0) Ur Specific Evans >=1.030 A (1.005-1.030) Urine Protein 30 (Negative) Urine Glucose (UA) Negative (Negative) mg/dL Urine Ketones Trace A (Negative) Urine Blood Negative (Negative) Urine Nitrite Negative (Negative) Urine Bilirubin Negative (Negative) Urine Urobilinogen 1.0 A (0.2) mg/dL Ur Leukocyte Esterase Negative (Negative) U Hyaline Cast (Auto) NONE SEEN (0-2) /LPF Urine Microscopic RBC 0-2 (0-5) /HPF Urine Microscopic WBC 0-2 (0-5) /HPF Ur Epithelial Cells None Seen (None Seen) /HPF Urine Bacteria None Seen (None Seen) /HPF Urine Culture Reflexed NO (NO) Influenza Type A Ag NEGATIVE (NEGATIVE) Influenza Type B Ag NEGATIVE (NEGATIVE) RSV (PCR) NEGATIVE (Negative) SARS-CoV-2 (PCR) NEGATIVE (NEGATIVE) 07/14/22 07/14/22 07/14/22 Range/Units 08:40 08:40 08:40 WBC (4.0-10.5) x10^3/uL RBC (4.1-5.6) x10^6/uL Hgb (12.5-18.0) g/dL Hct (42-50) % MCV (78-100) fL MCH (26-32) pg MCHC (32-36) g/dL RDW (11.5-14.0) % Plt Count (150-450) x10^3/uL MPV (7.5-11.0) fL Gran % (36.0-66.0) % Immature Gran % (Auto) (0.00-0.4) % Nucleat RBC Rel Count (0.00-0.1) % Eos # (Auto) (0-0.5) x10^3/uL Immature Gran # (Auto) (0.00-0.03) x10^3u/L Absolute Lymphs (auto) (1.0-4.6) x10^3/uL Absolute Monos (auto) (0.0-1.3) x10^3/uL Absolute Nucleated RBC (0.00-0.01) x10^3u/L Lymphocytes % (24.0-44.0) % Monocytes % (0.0-12.0) % Eosinophils % (0.00-5.0) % Basophils % (0.0-0.4) % Absolute Granulocytes (1.4-6.9) x10^3/uL Basophils # (0-0.4) x10^3/uL Sodium (137-145) mmol/L Potassium (3.5-5.1) mmol/L Chloride (98-107) mmol/L Carbon Dioxide (22-30) mmol/L Anion Gap (5-15) MEQ/L BUN (9-20) mg/dL Creatinine (0.66-1.25) mg/dL Estimated GFR ML/MIN Glucose (74-106) mg/dL Calcium (8.4-10.2) mg/dL Magnesium (1.6-2.3) mg/dL Total Bilirubin (0.2-1.3) mg/dL AST (17-59) U/L ALT (0-50) U/L Alkaline Phosphatase (38-126) U/L Troponin I < 0.012 (0.000-0.034) ng/mL NT-Pro-B Natriuret Pep (0-900) pg/mL Serum Total Protein (6.3-8.2) g/dL Albumin (3.5-5.0) g/dL Amylase (30-110) U/L Lipase (23-300) U/L Thyroxine (T4) 6.28 (5.53-10.96) ug/dL TSH 3rd Generation 2.050 (0.47-4.68) mIU/L Urine Color (Yellow) Urine Appearance (Clear) Urine pH (4.6-8.0) Ur Specific Evans (1.005-1.030) Urine Protein (Negative) Urine Glucose (UA) (Negative) mg/dL Urine Ketones (Negative) Urine Blood (Negative) Urine Nitrite (Negative) Urine Bilirubin (Negative) Urine Urobilinogen (0.2) mg/dL Ur Leukocyte Esterase (Negative) U Hyaline Cast (Auto) (0-2) /LPF Urine Microscopic RBC (0-5) /HPF Urine Microscopic WBC (0-5) /HPF Ur Epithelial Cells (None Seen) /HPF Urine Bacteria (None Seen) /HPF Urine Culture Reflexed (NO) Influenza Type A Ag (NEGATIVE) Influenza Type B Ag (NEGATIVE) RSV (PCR) (Negative) SARS-CoV-2 (PCR) (NEGATIVE) 07/14/22 07/14/22 Range/Units 08:40 08:29 WBC 2.6 L (4.0-10.5) x10^3/uL RBC 4.81 (4.1-5.6) x10^6/uL Hgb 12.1 L (12.5-18.0) g/dL Hct 39.9 L (42-50) % MCV 83.0 (78-100) fL MCH 25.2 L (26-32) pg MCHC 30.3 L (32-36) g/dL RDW 13.9 (11.5-14.0) % Plt Count 169 (150-450) x10^3/uL MPV 10.2 (7.5-11.0) fL Gran % 43.6 (36.0-66.0) % Immature Gran % (Auto) 0.4 (0.00-0.4) % Nucleat RBC Rel Count 0.0 (0.00-0.1) % Eos # (Auto) 0.08 (0-0.5) x10^3/uL Immature Gran # (Auto) 0.01 (0.00-0.03) x10^3u/L Absolute Lymphs (auto) 1.00 (1.0-4.6) x10^3/uL Absolute Monos (auto) 0.34 (0.0-1.3) x10^3/uL Absolute Nucleated RBC 0.00 (0.00-0.01) x10^3u/L Lymphocytes % 39.2 (24.0-44.0) % Monocytes % 13.3 H (0.0-12.0) % Eosinophils % 3.1 (0.00-5.0) % Basophils % 0.4 (0.0-0.4) % Absolute Granulocytes 1.11 L (1.4-6.9) x10^3/uL Basophils # 0.01 (0-0.4) x10^3/uL Sodium 135 L (137-145) mmol/L Potassium 4.5 (3.5-5.1) mmol/L Chloride 98 (98-107) mmol/L Carbon Dioxide 28 (22-30) mmol/L Anion Gap 13.8 (5-15) MEQ/L BUN 20 (9-20) mg/dL Creatinine 0.94 (0.66-1.25) mg/dL Estimated GFR > 60.0 ML/MIN Glucose 251 H (74-106) mg/dL Calcium 9.0 (8.4-10.2) mg/dL Magnesium 1.8 (1.6-2.3) mg/dL Total Bilirubin 0.40 (0.2-1.3) mg/dL AST 28 (17-59) U/L ALT 21 (0-50) U/L Alkaline Phosphatase 108 (38-126) U/L Troponin I (0.000-0.034) ng/mL NT-Pro-B Natriuret Pep 93.1 (0-900) pg/mL Serum Total Protein 8.0 (6.3-8.2) g/dL Albumin 4.4 (3.5-5.0) g/dL Amylase (30-110) U/L Lipase (23-300) U/L Thyroxine (T4) (5.53-10.96) ug/dL TSH 3rd Generation (0.47-4.68) mIU/L Urine Color (Yellow) Urine Appearance (Clear) Urine pH (4.6-8.0) Ur Specific Evans (1.005-1.030) Urine Protein (Negative) Urine Glucose (UA) (Negative) mg/dL Urine Ketones (Negative) Urine Blood (Negative) Urine Nitrite (Negative) Urine Bilirubin (Negative) Urine Urobilinogen (0.2) mg/dL Ur Leukocyte Esterase (Negative) U Hyaline Cast (Auto) (0-2) /LPF Urine Microscopic RBC (0-5) /HPF Urine Microscopic WBC (0-5) /HPF Ur Epithelial Cells (None Seen) /HPF Urine Bacteria (None Seen) /HPF Urine Culture Reflexed (NO) Influenza Type A Ag (NEGATIVE) Influenza Type B Ag (NEGATIVE) RSV (PCR) (Negative) SARS-CoV-2 (PCR) (NEGATIVE) - Departure Departure Disposition: Home Clinical Impression: Neutropenia, Hyperglycemia, Mild dehydration Condition: Stable Critical Care Time: No Referrals: HARLEY NUÑEZ NP [Primary Care Provider] - Follow up/PCP as directed Additional Instructions: Continue your medication as prescribed. Drink plenty of fluids. Call your fiberline supervisor today to reschedule your appointment. You need to get into see your fiberline supervisor to fill your prescriptions for insulin. Keep your appointment with your pain specialist today. Keep your appointments with your infectious disease specialist. Call your nurse practitioner today to make arrangements for follow-up appointment.
[2022-07-14] MEDS ORDERED: Sodium Chloride 0.9% 1000 ML 1,000 ML IV STA (08:29)
[2022-07-14] MEDS ORDERED: Sodium Chloride 0.9% 1000 ML 1,000 ML ONE (08:55)
[2022-07-14 09:01] LABS: Absolute Neutrophil Ct (ANC) 1.11 x10^3/uL (1.4-6.9); Basophil (Absolute #) 0.01 x10^3/uL (0-0.4); Eosinophil % 3.1 % (0.00-5.0); Eosinophil (Absolute #) 0.08 x10^3/uL (0-0.5); Hematocrit 39.9 % (42-50); Hemoglobin 12.1 g/dL (12.5-18.0); Lymphocytes % 39.2 % (24.0-44.0); Mean Corpuscular Hemoglobin 25.2 pg (26-32); Mean Corpuscular Hgb Concent. 30.3 g/dL (32-36); Mean Platelet Volume 10.2 fL (7.5-11.0); Monocyte (Absolute #) 0.34 x10^3/uL (0.0-1.3); Monocytes % 13.3 % (0.0-12.0); Neutrophil % 43.6 % (36.0-66.0); Platelet Count 169 x10^3/uL (150-450); Red Blood Count 4.81 x10^6/uL (4.1-5.6); Red Cell Distribution Width 13.9 % (11.5-14.0); White Blood Count 2.6 x10^3/uL (4.0-10.5)
[2022-07-14 09:18] VITALS: BP 121/85
[2022-07-14 09:22] LABS: AMYLASE < 30 U/L (30-110); LIPASE 13 U/L (23-300)
[2022-07-14 09:25] LABS: ALBUMIN 4.4 g/dL (3.5-5.0); ALKALINE PHOSPHATASE 108 U/L (38-126); ANION GAP 13.8 MEQ/L (5-15); BLOOD UREA NITROGEN 20 mg/dL (9-20); CHLORIDE 98 mmol/L (98-107); Carbon Dioxide 28 mmol/L (22-30); Creatinine 1 0.94 mg/dL (0.66-1.25); EST GLOMERULAR FILTRATION RATE > 60.0 ML/MIN; Glucose 251 mg/dL (74-106); MAGNESIUM 1.8 mg/dL (1.6-2.3); NT PRO BNP 93.1 pg/mL (0-900); Potassium 4.5 mmol/L (3.5-5.1); SGOT/AST 28 U/L (17-59); SGPT/ALT 21 U/L (0-50); SODIUM 135 mmol/L (137-145)
[2022-07-14 10:03] VITALS: PULSE 56; O2SAT 99
[2022-07-14 10:12] LABS: INFLUENZA A NEGATIVE (NEGATIVE); INFLUENZA B NEGATIVE (NEGATIVE); RESPIRATORY SYNCTIAL VIRUS NEGATIVE (Negative); SARS-CoV-2 Xpert Express NEGATIVE (NEGATIVE)
[2022-07-14 10:46] LABS: Appearance Clear (Clear); Bacteria None Seen /HPF (None Seen); Bilirubin Negative (Negative); Blood Negative (Negative); Epithelial Cells None Seen /HPF (None Seen); Glucose, Urine Negative (Negative); Hyaline Casts NONE SEEN /LPF (0-2); Ketones Trace (Negative); Leukocyte Esterase Negative (Negative); Nitrite Negative (Negative); Ph 5.5 (4.6-8.0); Protein,Urine Dip 30 (Negative); RBC 0-2 /HPF (0-5); Specific Gravity >=1.030 (1.005-1.030); WBC 0-2 /HPF (0-5)
[2022-07-14 10:53] LABS: ADD URINE CULTURE? NO (NO)
== END 2022-07-14 11:05 | disposition home or self-care (01) ==
LOC: ED 08:08
DX: D70.9 Neutropenia, unspecified (principal); E11.65 Type 2 diabetes mellitus with hyperglycemia; E86.0 Dehydration; R53.1 Weakness; E11.42 Type 2 diabetes mellitus with diabetic polyneuropathy; Z79.891 Long term (current) use of opiate analgesic; Z79.4 Long term (current) use of insulin; Z72.0 Tobacco use; Z20.828 Contact with and (suspected) exposure to other viral communicable diseases
CPT/HCPCS: 0241U; 36415; 80053; 81001; 82150; 83690; 83735; 83880; 84436; 84443; 84484; 85025; 87040; 87077; 87186; 93005; 94760; 96360; 99284

== ENCOUNTER 2022-08-27 17:19 | Emergency (ER) | payer MEDICARE ==
[2022-08-27] MEDS ORDERED: Sodium Chloride 0.9% 1000 ML 1,000 ML IV STA (17:41)
--- NOTE | 2022-08-27 17:43 | ERPHSYRPT ---
- History of Present Illness Time Seen by Provider: 08/27/22 17:43 Source: patient Exam Limitations: no limitations Patient Subjective Stated Complaint: Pt states "My picc line is infected for real this time. I have been running a high fever and Dr. Lowery told me to come in and stay this time." Triage Nursing Assessment: Pt presented alert and oriented X 3, skin pwd.PT ambulates with an upright steady gait, able to speak in clear full sentences pt in no apparent respiratory distress. Physician History: This is a 52-year-old white male patient of nurse practitioner Missy, english adjunct faculty Dr. Jaquez and infectious disease specialist Dr. Patel. The the specialist work out of [facility] which is where the patient wants to be transferred to. The patient is here because he spiked a fever as high as 104 F yesterday. Patient has body wide infection of MRSA and has a PICC line in place and there is a concern that this may be infected. Patient had a right knee replacement which had to be removed and there is a knee spacer in place. Patient arrives to the emergency department with generalized achiness and a fever of 101.6 F. Patient is a diabetic and he has a history of arthritis. Patient states that the home health nurse sariah a blood culture from the PICC line this morning. 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: none Associated Symptoms: nausea/vomiting, weakness (Nausea generalized body aches), No stiff neck Allergies/Adverse Reactions: No Known Drug Allergies Allergy (Verified 01/27/21 04:41) Home Medications: Quetiapine Fumarate 100 mg [Seroquel 100 MG] 300 mg PO HS 01/26/21 [History] clonazePAM [Clonazepam] 0.5 mg PO BID 01/27/21 [History] Buprenorphine HCl/Naloxone HCl [Buprenorphin-Naloxon 8-2 mg Sl] 1 each SL DAILY 12/09/21 [History] Gabapentin Enacarbil [Horizant] 600 mg PO DAILY 07/14/22 [History] Micafungin Sodium [Micafungin] 100 mg IV DAILY 07/14/22 [History] OXcarbazepine [Trileptal] 300 mg PO DAILY 07/14/22 [History] Oxycodone HCl/Acetaminophen [Oxycodon-Acetaminophen 7.5-300] 1 each PO DAILY 07/14/22 [History] Testosterone Cypionate 200 mg IM WEEKLY 07/14/22 [History] Hx Tetanus, Diphtheria Vaccination/Date Given: Yes Hx Influenza Vaccination/Date Given: No Hx Pneumococcal Vaccination/Date Given: No Immunizations Up to Date: Yes Travel Risk - International Travel Have you traveled outside of the country in past 3 weeks: No - Coronavirus Screening Are you exhibiting any of the following symptoms?: Yes Symptoms: Fever, Headaches/Body Aches/Fatigue Close contact with a COVID-19 positive Pt in past 14-21 Days: No - Vaccine Status Have you recieved a Covid-19 vaccination: Yes 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[employer] - Vaccination Dates Date of Voltaix Vaccination [PCS.COV.SMITA]: 09/10/20 - Review of Systems Constitutional: Fever, Weakness Eyes: No Symptoms Ears, Nose, & Throat: No Symptoms Respiratory: No Symptoms Cardiac: No Symptoms Abdominal/Gastrointestinal: No Symptoms Genitourinary Symptoms: No Symptoms Musculoskeletal: Arthralgias, Myalgias Psychological: No Symptoms Endocrine: No Symptoms Hematologic/Lymphatic: No Symptoms Immunological/Allergic: No Symptoms All Other Systems: Reviewed and Negative - Past Medical History Pertinent Past Medical History: Yes Neurological History: No Pertinent History ENT History: No Pertinent History Cardiac History: No Pertinent History Respiratory History: No Pertinent History Endocrine Medical History: Diabetes Type II Musculoskeletal History: Arthritis GI Medical History: No Pertinent History History: No Pertinent History Psycho-Social History: Depression Male Reproductive Disorders: No Pertinent History Other Medical History: Chronic pain in right leg and goes to pain clinic for t reatment; Dr. Keith - Past Surgical History Past Surgical History: Yes Neuro Surgical History: No Pertinent History Cardiac: No Pertinent History Respiratory: No Pertinent History Gastrointestinal: No Pertinent History Genitourinary: No Pertinent History Musculoskeletal: Orthopedic Surgery Male Surgical History: No Pertinent History Other Surgical History: 2 knee replacements right knee. Left shoulder surgery (states "put it together and put a screw in it") 05/02/2020 PT STATES THAT HE IS AWAITING AN ADDITIONAL RIGHT KNEE SURGERY. TRYING TO GET HIS DIABETES UNDER CONTROL - Social History Smoking Status: Current every day smoker How long have you smoked: 30 years Exposure to second hand smoke: No Drug Use: marijuana Patient Lives Alone: No - Nursing Vital Signs Nursing Vital Signs: Initial Vital Signs Temperature 101.6 F 08/27/22 17:29 Pulse Rate 87 08/27/22 17:29 Respiratory Rate 22 08/27/22 17:29 Blood Pressure 135/73 08/27/22 17:29 O2 Sat by Pulse Oximetry 97 08/27/22 17:29 Pain Scale Pain Intensity 7 - Physical Exam General Appearance: no apparent distress, alert, anxiety, thin Eye Exam: PERRL/EOMI, eyes nml inspection ENT Exam: normal ENT inspection, no apparent trauma, hearing grossly normal, TMs normal Neck Exam: normal inspection, non-tender, supple, full range of motion, trachea midline Respiratory Exam: normal breath sounds, lungs clear, no respiratory distress, no accessory muscle use, No chest non-tender, No decreased breath sounds, No respiratory distress, No stridor, No wheezing Cardiovascular/Chest Exam: normal heart sounds, regular rate/rhythm Gastrointestinal/Abdominal Exam: soft, non tender, no distention, no mass, no guarding, no ecchymosis, no organomegaly, no pulsatile mass, normal bowel sounds Rectal Exam: not done Extremity Exam: non-tender, normal range of motion, normal inspection Neurologic Exam: alert, oriented x 3, cooperative, wing commander II-XII nml as tested, normal mood/affect, nml cerebellar function, nml station & gait, sensation nml Skin Exam: normal color, warm, dry, other (Right upper extremity PICC line site does not appear to be red, swollen or tender and has no drainage.) Lymphatic: No adenopathy SpO2 Interpretation: normal SpO2: 97 O2 Delivery: Room Air - Course Nursing assessment & vital signs reviewed: Yes Ordered Tests: Active Orders 24 hr Category Date Time Status IV Insertion STAT Care 08/27/22 17:41 Active Pulse Oximetry (ED) STAT Care 08/27/22 17:41 Active CHEST 1 VIEW (PORTABLE) Stat Exams 08/27/22 17:54 Taken BLOOD CULTURE Stat Lab 08/27/22 18:20 Received CBC W DIFF Stat Lab 08/27/22 17:41 Completed CMP Stat Lab 08/27/22 18:15 Completed Lactic Acid Stat Lab 08/27/22 17:41 Completed Labette Screen Stat Lab 08/27/22 18:20 Completed UA W/RFX UR CULTURE Stat Lab 08/27/22 18:14 Completed Medication Summary Generic Name Dose Route Start Last Admin Trade Name Freq PRN Reason Stop Dose Admin Vancomycin HCl 1 gm in 200 mls @ 125 mls/hr 08/27/22 20:40 08/27/22 20:46 Vancomycin 1 Gram/200 Ml Bag IV 08/27/22 22:15 125 ml/hr STAT ONE 125 mls/hr Administration Discontinued Medications Generic Name Dose Route Start Last Admin Trade Name Rileyq PRN Reason Stop Dose Admin Hydromorphone HCl 1 mg 08/27/22 18:16 08/27/22 18:26 Hydromorphone 1 Mg/1ml Inj 1 Mg/Ml Syringe IV 08/27/22 18:17 1 mg STAT ONE Administration Hydromorphone HCl Confirm 08/27/22 18:22 Hydromorphone 1 Mg/1ml Inj 1 Mg/Ml Syringe Administered 08/27/22 18:23 Dose 1 mg .ROUTE .STK-MED ONE Sodium Chloride 1,000 mls @ 999 mls/hr 08/27/22 17:41 08/27/22 20:06 Sodium Chloride 0.9% 1000 Ml IV 08/27/22 18:41 Infused .Q1H1M STA Infusion Sodium Chloride Confirm 08/27/22 17:51 Sodium Chloride 0.9% 1000 Ml Administered 08/27/22 17:52 Dose 1,000 mls @ ud .ROUTE .STK-MED ONE Vancomycin HCl Confirm 08/27/22 20:44 Vancomycin 1 Gram/200 Ml Bag Administered 08/27/22 20:45 Dose 1 gm in 200 mls @ ud IV .STK-MED ONE Ondansetron HCl 4 mg 08/27/22 18:16 08/27/22 18:24 Ondansetron Hcl 4 Mg/2 Ml Vial IV 08/27/22 18:17 4 mg STAT ONE Administration Ondansetron HCl Confirm 08/27/22 18:22 Ondansetron Hcl 4 Mg/2 Ml Vial Administered 08/27/22 18:23 Dose 4 mg .ROUTE .STK-MED ONE Lab/Rad Data: Laboratory Result Diagrams 08/27/22 17:41 08/27/22 18:15 Laboratory Results 08/27/22 08/27/22 08/27/22 Range/Units 18:20 18:20 18:15 WBC (4.0-10.5) x10^3/uL RBC (4.1-5.6) x10^6/uL Hgb (12.5-18.0) g/dL Hct (42-50) % MCV (78-100) fL MCH (26-32) pg MCHC (32-36) g/dL RDW (11.5-14.0) % Plt Count (150-450) x10^3/uL MPV (7.5-11.0) fL Gran % (36.0-66.0) % Immature Gran % (Auto) (0.00-0.4) % Nucleat RBC Rel Count (0.00-0.1) % Eos # (Auto) (0-0.5) x10^3/uL Immature Gran # (Auto) (0.00-0.03) x10^3u/L Absolute Lymphs (auto) (1.0-4.6) x10^3/uL Absolute Monos (auto) (0.0-1.3) x10^3/uL Absolute Nucleated RBC (0.00-0.01) x10^3u/L Lymphocytes % (24.0-44.0) % Monocytes % (0.0-12.0) % Eosinophils % (0.00-5.0) % Basophils % (0.0-0.4) % Absolute Granulocytes (1.4-6.9) x10^3/uL Basophils # (0-0.4) x10^3/uL Sodium 132 L (137-145) mmol/L Potassium 4.2 (3.5-5.1) mmol/L Chloride 99 (98-107) mmol/L Carbon Dioxide 24 (22-30) mmol/L Anion Gap 12.3 (5-15) MEQ/L BUN 10 (9-20) mg/dL Creatinine 0.76 (0.66-1.25) mg/dL Estimated GFR > 60.0 ML/MIN Glucose 283 H (74-106) mg/dL Lactic Acid (0.4-2.0) Calcium 7.8 L (8.4-10.2) mg/dL Total Bilirubin 0.40 (0.2-1.3) mg/dL AST 14 L (17-59) U/L ALT 11 (0-50) U/L Alkaline Phosphatase 73 (38-126) U/L Serum Total Protein 6.3 (6.3-8.2) g/dL Albumin 3.4 L (3.5-5.0) g/dL Urine Color (Yellow) Urine Appearance (Clear) Urine pH (4.6-8.0) Ur Specific Berino (1.005-1.030) Urine Protein (Negative) Urine Glucose (UA) (Negative) mg/dL Urine Ketones (Negative) Urine Blood (Negative) Urine Nitrite (Negative) Urine Bilirubin (Negative) Urine Urobilinogen (0.2) mg/dL Ur Leukocyte Esterase (Negative) U Hyaline Cast (Auto) (0-2) /LPF Urine Microscopic RBC (0-5) /HPF Urine Microscopic WBC (0-5) /HPF Ur Epithelial Cells (None Seen) /HPF Urine Bacteria (None Seen) /HPF Urine Culture Reflexed (NO) Monoscreen NEGATIVE (Negative) Influenza Type A Ag NEGATIVE (NEGATIVE) Influenza Type B Ag NEGATIVE (NEGATIVE) RSV (PCR) NEGATIVE (Negative) SARS-CoV-2 (PCR) NEGATIVE (NEGATIVE) 08/27/22 08/27/22 08/27/22 Range/Units 18:14 17:41 17:41 WBC 7.4 (4.0-10.5) x10^3/uL RBC 3.92 L (4.1-5.6) x10^6/uL Hgb 9.6 L (12.5-18.0) g/dL Hct 31.2 L (42-50) % MCV 79.6 (78-100) fL MCH 24.5 L (26-32) pg MCHC 30.8 L (32-36) g/dL RDW 13.9 (11.5-14.0) % Plt Count 192 (150-450) x10^3/uL MPV 9.8 (7.5-11.0) fL Gran % 86.1 H (36.0-66.0) % Immature Gran % (Auto) 0.8 H (0.00-0.4) % Nucleat RBC Rel Count 0.0 (0.00-0.1) % Eos # (Auto) 0.05 (0-0.5) x10^3/uL Immature Gran # (Auto) 0.06 H (0.00-0.03) x10^3u/L Absolute Lymphs (auto) 0.56 L (1.0-4.6) x10^3/uL Absolute Monos (auto) 0.35 (0.0-1.3) x10^3/uL Absolute Nucleated RBC 0.00 (0.00-0.01) x10^3u/L Lymphocytes % 7.6 L (24.0-44.0) % Monocytes % 4.7 (0.0-12.0) % Eosinophils % 0.7 (0.00-5.0) % Basophils % 0.1 (0.0-0.4) % Absolute Granulocytes 6.38 (1.4-6.9) x10^3/uL Basophils # 0.01 (0-0.4) x10^3/uL Sodium (137-145) mmol/L Potassium (3.5-5.1) mmol/L Chloride (98-107) mmol/L Carbon Dioxide (22-30) mmol/L Anion Gap (5-15) MEQ/L BUN (9-20) mg/dL Creatinine (0.66-1.25) mg/dL Estimated GFR ML/MIN Glucose (74-106) mg/dL Lactic Acid 1.2 (0.4-2.0) Calcium (8.4-10.2) mg/dL Total Bilirubin (0.2-1.3) mg/dL AST (17-59) U/L ALT (0-50) U/L Alkaline Phosphatase (38-126) U/L Serum Total Protein (6.3-8.2) g/dL Albumin (3.5-5.0) g/dL Urine Color Yellow (Yellow) Urine Appearance Clear (Clear) Urine pH 8.5 A (4.6-8.0) Ur Specific Berino 1.020 (1.005-1.030) Urine Protein Trace A (Negative) Urine Glucose (UA) Negative (Negative) mg/dL Urine Ketones Negative (Negative) Urine Blood Negative (Negative) Urine Nitrite Negative (Negative) Urine Bilirubin Negative (Negative) Urine Urobilinogen 1.0 A (0.2) mg/dL Ur Leukocyte Esterase Negative (Negative) U Hyaline Cast (Auto) NONE SEEN (0-2) /LPF Urine Microscopic RBC 0-2 (0-5) /HPF Urine Microscopic WBC 0-2 (0-5) /HPF Ur Epithelial Cells None Seen (None Seen) /HPF Urine Bacteria None Seen (None Seen) /HPF Urine Culture Reflexed NO (NO) Monoscreen (Negative) Influenza Type A Ag (NEGATIVE) Influenza Type B Ag (NEGATIVE) RSV (PCR) (Negative) SARS-CoV-2 (PCR) (NEGATIVE) - Progress Progress Note: 08/27/22 20:21 Chest x-ray was interpreted by me. No definite infiltrate. No pleural effusion. No acute cardiopulmonary process. 08/27/22 21:31 This patient's medical issues are of high complexity. The work-up performed was based on the patient's past medical history, history of present illness, review of the patient's medications and physical findings on physical examination. The work-up performed includes separate IV line in the left upper extremity and infusion of normal saline solution, urinalysis, chest x-ray, CBC, CMP, lactic acid level. I reviewed the work-up results. I then discussed these with the patient. The patient wants to be transferred to where his specialists practice including infectious disease, Dr. Arnold and his english adjunct faculty. I reviewed the above work-up and the results with Dr. Arnold, the infectious disease specialist. He wants the PICC line to be removed and tip cultured. We performed this in the emergency department today. He wants vancomycin 1 g intravenously at this time in our emergency department which we infused. Again, the patient wants to go to [facility]. I spoke with the hospitalist, Dr. Ji and reviewed the same information from the work-up. Together we opted to transfer the patient to [facility]. Dr. Arnold wants the patient to be in the hospital for at least 24 hours for intravenous antibiotics. Counseled pt/family regarding: lab results, diagnosis, need for follow-up, rad results Medical Desision Making - Discussion of managment Care discussed with:: specialist ([facility] infectious disease specialist Dr. Patel) Agreed on:: Treatment plan Will see patient: in hospital (In addition I spoke with [facility] hospitalist on-call Dr. Ji.) - Social Determinants of Health Limited access to: transportation - Diagnostic Testing Diagnostic test were ordered, analyzed, and reviewed by me: Yes Radiological Interpretation: Interpreted by me, Reviewed by me - Risk of complications The pt has a mod risk of morbidity or mortality based on: Need for prescription drug management The pt has a high risk of morbidity or mortality based on: Decision regarding hospitilization or escalation of hosp level of care - Departure Departure Disposition: Home Clinical Impression: Fever, PICC line infection Condition: Stable Critical Care Time: No Referrals: HARLEY NUÑEZ, RETORT FIRER [Primary Care Provider] - Follow up/PCP as directed
[2022-08-27] MEDS ORDERED: Sodium Chloride 0.9% 1000 ML 1,000 ML ONE (17:51)
[2022-08-27] MEDS ORDERED: Hydromorphone 1 mg/ml Injection IV ONE ×2 (18:16→22:25)
[2022-08-27] MEDS ORDERED: Zofran 4 MG/2 ML VIAL IV ONE (18:16)
[2022-08-27] MEDS ORDERED: Hydromorphone 1 mg/ml Injection ONE ×2 (18:22→22:29)
[2022-08-27] MEDS ORDERED: Zofran 4 MG/2 ML VIAL ONE (18:22)
[2022-08-27 18:33] LABS: Absolute Neutrophil Ct (ANC) 6.38 x10^3/uL (1.4-6.9); BASOPHIL % 0.1 % (0.0-0.4); Basophil (Absolute #) 0.01 x10^3/uL (0-0.4); Eosinophil % 0.7 % (0.00-5.0); Eosinophil (Absolute #) 0.05 x10^3/uL (0-0.5); Hematocrit 31.2 % (42-50); Hemoglobin 9.6 g/dL (12.5-18.0); IMMATURE GRAN # 0.06 x10^3u/L (0.00-0.03); IMMATURE GRAN % 0.8 % (0.00-0.4); Lymphocyte (Absolute #) 0.56 x10^3/uL (1.0-4.6); Lymphocytes % 7.6 % (24.0-44.0); Mean Cell Volume 79.6 fL (78-100); Mean Corpuscular Hemoglobin 24.5 pg (26-32); Mean Corpuscular Hgb Concent. 30.8 g/dL (32-36); Mean Platelet Volume 9.8 fL (7.5-11.0); Monocyte (Absolute #) 0.35 x10^3/uL (0.0-1.3); Monocytes % 4.7 % (0.0-12.0); Neutrophil % 86.1 % (36.0-66.0); Platelet Count 192 x10^3/uL (150-450); Red Blood Count 3.92 x10^6/uL (4.1-5.6); Red Cell Distribution Width 13.9 % (11.5-14.0); White Blood Count 7.4 x10^3/uL (4.0-10.5)
[2022-08-27 18:46] LABS: ALBUMIN 3.4 g/dL (3.5-5.0); ALKALINE PHOSPHATASE 73 U/L (38-126); ANION GAP 12.3 MEQ/L (5-15); BLOOD UREA NITROGEN 10 mg/dL (9-20); CHLORIDE 99 mmol/L (98-107); Calcium 7.8 mg/dL (8.4-10.2); Carbon Dioxide 24 mmol/L (22-30); Creatinine 1 0.76 mg/dL (0.66-1.25); EST GLOMERULAR FILTRATION RATE > 60.0 ML/MIN; Glucose 283 mg/dL (74-106); Potassium 4.2 mmol/L (3.5-5.1); SGOT/AST 14 U/L (17-59); SGPT/ALT 11 U/L (0-50); SODIUM 132 mmol/L (137-145); Total Protein 6.3 g/dL (6.3-8.2)
[2022-08-27 18:52] LABS: Appearance Clear (Clear); Bacteria None Seen /HPF (None Seen); Bilirubin Negative (Negative); Blood Negative (Negative); Epithelial Cells None Seen /HPF (None Seen); Glucose, Urine Negative (Negative); Hyaline Casts NONE SEEN /LPF (0-2); Ketones Negative (Negative); Leukocyte Esterase Negative (Negative); Nitrite Negative (Negative); Ph 8.5 (4.6-8.0); Protein,Urine Dip Trace (Negative); RBC 0-2 /HPF (0-5); WBC 0-2 /HPF (0-5)
[2022-08-27 18:53] LABS: ADD URINE CULTURE? NO (NO)
[2022-08-27 19:10] LABS: INFLUENZA A NEGATIVE (NEGATIVE); INFLUENZA B NEGATIVE (NEGATIVE); RESPIRATORY SYNCTIAL VIRUS NEGATIVE (Negative); SARS-CoV-2 Xpert Express NEGATIVE (NEGATIVE)
[2022-08-27] MEDS ORDERED: VANCOMYCIN 1 GRAM/200 ML BAG 1 GM/200 ML PIGGYBACK IV ONE ×2 (20:40→20:44)
[2022-08-28 02:04] LABS: Slide Review 1 YES
[2022-08-28 04:26] LABS: ANION GAP 9.6 MEQ/L (5-15); BLOOD UREA NITROGEN 10 mg/dL (9-20); CHLORIDE 100 mmol/L (98-107); Calcium 7.8 mg/dL (8.4-10.2); Carbon Dioxide 27 mmol/L (22-30); Creatinine 1 0.74 mg/dL (0.66-1.25); EST GLOMERULAR FILTRATION RATE > 60.0 ML/MIN; Glucose 291 mg/dL (74-106); Potassium 4.4 mmol/L (3.5-5.1); SODIUM 132 mmol/L (137-145)
[2022-08-28] MEDS ORDERED: VANCOMYCIN 1 GRAM/200 ML BAG 1 GM/200 ML PIGGYBACK IV ONE ×2 (05:57→06:35)
[2022-08-28] MEDS ORDERED: Hydromorphone 1 mg/ml Injection IV ONE (06:57)
[2022-08-28] MEDS ORDERED: Zofran 4 MG/2 ML VIAL IV ONE (06:57)
[2022-08-28 07:57] LABS: Absolute Neutrophil Ct (ANC) 4.19 x10^3/uL (1.4-6.9); BASOPHIL % 0.5 % (0.0-0.4); Basophil (Absolute #) 0.03 x10^3/uL (0-0.4); Eosinophil % 2.1 % (0.00-5.0); Eosinophil (Absolute #) 0.13 x10^3/uL (0-0.5); Hematocrit 35.4 % (42-50); Hemoglobin 10.8 g/dL (12.5-18.0); IMMATURE GRAN # 0.02 x10^3u/L (0.00-0.03); IMMATURE GRAN % 0.3 % (0.00-0.4); Lymphocyte (Absolute #) 1.36 x10^3/uL (1.0-4.6); Mean Cell Volume 80.8 fL (78-100); Mean Corpuscular Hemoglobin 24.7 pg (26-32); Mean Corpuscular Hgb Concent. 30.5 g/dL (32-36); Mean Platelet Volume 9.8 fL (7.5-11.0); Monocyte (Absolute #) 0.45 x10^3/uL (0.0-1.3); Monocytes % 7.3 % (0.0-12.0); Neutrophil % 67.8 % (36.0-66.0); Platelet Count 186 x10^3/uL (150-450); Red Blood Count 4.38 x10^6/uL (4.1-5.6); Red Cell Distribution Width 14.1 % (11.5-14.0); White Blood Count 6.2 x10^3/uL (4.0-10.5)
[2022-08-28 07:59] VITALS: BP 139/78; PULSE 65; O2SAT 99
--- NOTE | 2022-08-28 08:08 | XRAY ---
Indication: Infection PICC line. Comparison: January 27, 2021 Portable chest again demonstrates normal heart and lungs with a few incidental tiny calcified granulomas. New right arm PICC line with tip projecting over SVC. Bony thorax intact again with left glenoid with orthopedic screw.
[2022-08-28 08:14] LABS: ALBUMIN 3.5 g/dL (3.5-5.0); ALKALINE PHOSPHATASE 77 U/L (38-126); ANION GAP 14.5 MEQ/L (5-15); BLOOD UREA NITROGEN 9 mg/dL (9-20); CHLORIDE 101 mmol/L (98-107); Calcium 8.3 mg/dL (8.4-10.2); Carbon Dioxide 25 mmol/L (22-30); EST GLOMERULAR FILTRATION RATE > 60.0 ML/MIN; Glucose 268 mg/dL (74-106); Potassium 4.5 mmol/L (3.5-5.1); SGOT/AST 13 U/L (17-59); SGPT/ALT 12 U/L (0-50); SODIUM 136 mmol/L (137-145); Total Protein 6.5 g/dL (6.3-8.2)
== END 2022-08-28 08:16 | disposition home or self-care (01) ==
LOC: ED 17:19
DX: T80.211A Bloodstream infection due to central venous catheter, initial encounter (principal); B99.8 Other infectious disease; R50.9 Fever, unspecified; E11.9 Type 2 diabetes mellitus without complications; Z79.891 Long term (current) use of opiate analgesic; Z79.899 Other long term (current) drug therapy; Z72.0 Tobacco use
CPT/HCPCS: 0241U; 36000; 36415; 71045; 80048; 80053; 81001; 83605; 85025; 86308; 87040; 94760; 96360; 96361; 96365; 96366; 96374; 96375; 96376; 99285; 87070; 87077; J1170; J2405; J3370

== ENCOUNTER 2023-01-21 19:50 | Emergency (ER) | payer MEDICARE ==
[2023-01-21 20:39] VITALS: BP 176/92; PULSE 67; RESP 16; TEMP 97.9; O2SAT 95
[2023-01-21] MEDS ORDERED: Sodium Chloride 0.9% 1000 ML 1,000 ML IV SCH (21:15)
[2023-01-21 21:32] LABS: Absolute Neutrophil Ct (ANC) 2.73 x10^3/uL (1.4-6.9); BASOPHIL % 0.7 % (0.0-0.4); Basophil (Absolute #) 0.04 x10^3/uL (0-0.4); Eosinophil % 6.1 % (0.00-5.0); Eosinophil (Absolute #) 0.37 x10^3/uL (0-0.5); Hematocrit 27.6 % (42-50); IMMATURE GRAN # 0.01 x10^3u/L (0.00-0.03); IMMATURE GRAN % 0.2 % (0.00-0.4); Lymphocyte (Absolute #) 2.53 x10^3/uL (1.0-4.6); Lymphocytes % 41.9 % (24.0-44.0); Mean Cell Volume 76.7 fL (78-100); Mean Corpuscular Hemoglobin 22.2 pg (26-32); Mean Platelet Volume 10.9 fL (7.5-11.0); Monocyte (Absolute #) 0.36 x10^3/uL (0.0-1.3); Neutrophil % 45.1 % (36.0-66.0); Platelet Count 284 x10^3/uL (150-450); Red Cell Distribution Width 15.5 % (11.5-14.0)
[2023-01-21 21:48] LABS: ALBUMIN 3.8 g/dL (3.5-5.0); ALKALINE PHOSPHATASE 85 U/L (38-126); ANION GAP 12.7 MEQ/L (5-15); BLOOD UREA NITROGEN 17 mg/dL (9-20); CHLORIDE 103 mmol/L (98-107); Calcium 8.9 mg/dL (8.4-10.2); Carbon Dioxide 27 mmol/L (22-30); Creatinine 1 0.83 mg/dL (0.66-1.25); EST GLOMERULAR FILTRATION RATE > 60.0 ML/MIN; Glucose 245 mg/dL (74-106); Potassium 4.7 mmol/L (3.5-5.1); SGOT/AST 17 U/L (17-59); SGPT/ALT 17 U/L (0-50); SODIUM 138 mmol/L (137-145)
[2023-01-21 21:50] LABS: INR 0.93 (0.8-3.0); PROTIME 10.2 SECONDS (9.4-12.5); PTT 25.4 SECONDS (25.1-36.5)
--- NOTE | 2023-01-21 22:04 | ERPHSYRPT ---
- History of Present Illness Time Seen by Provider: 01/21/23 19:58 Source: patient Exam Limitations: no limitations Patient Subjective Stated Complaint: pt states hw was toald to come to the er for blood transfusion since his hgb was low. Triage Nursing Assessment: pt alert and oriented, answers questions approp. pt back to room per wheelchair. transfers to stretcher per self. respirations nonlabored. skin warm and dry. rt aka. Physician History: 52 years old male with history of MRSA needing right above-knee amputation on December [facility] at [facility], currently getting rehab at a senior care is sent in ER for possible transfusion as hemoglobin checked at Dr. Jaquez's office was 6.9. Patient denies any dark stool, chest pain palpitations or shortness of breath. Denies any hemoptysis or hematemesis/coffee-ground emesis. Allergies/Adverse Reactions: No Known Drug Allergies Allergy (Verified 01/17/23 14:44) Home Medications: Quetiapine Fumarate 100 mg [Seroquel 100 MG] 325 mg PO HS 01/26/21 [History] clonazePAM [Clonazepam] 0.5 mg PO BID 01/27/21 [History] Buprenorphine HCl/Naloxone HCl [Buprenorphin-Naloxon 8-2 mg Sl] 1 each SL DAILY 12/09/21 [History] Gabapentin Enacarbil [Horizant] 800 mg PO TID 07/14/22 [History] OXcarbazepine [Trileptal] 300 mg PO DAILY 07/14/22 [History] Testosterone Cypionate 75 mg IM DAILY 07/14/22 [History] Tapentadol HCl [Nucynta] 75 mg PO QID 01/17/23 [History] Hx Tetanus, Diphtheria Vaccination/Date Given: Yes Hx Influenza Vaccination/Date Given: No Hx Pneumococcal Vaccination/Date Given: No Immunizations Up to Date: Yes Travel Risk - International Travel Have you traveled outside of the country in past 3 weeks: No - Coronavirus Screening Are you exhibiting any of the following symptoms?: No Close contact with a COVID-19 positive Pt in past 14-21 Days: No - Vaccine Status Have you recieved a Covid-19 vaccination: Yes 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 - Review of Systems Constitutional: No Symptoms Eyes: No Symptoms Ears, Nose, & Throat: No Symptoms Respiratory: No Symptoms Cardiac: No Symptoms Abdominal/Gastrointestinal: No Symptoms Genitourinary Symptoms: No Symptoms Musculoskeletal: Deformity (Right above knee amputation) Skin: No Symptoms Endocrine: No Symptoms - Past Medical History Pertinent Past Medical History: Yes Neurological History: No Pertinent History ENT History: No Pertinent History Cardiac History: No Pertinent History Respiratory History: No Pertinent History Endocrine Medical History: Diabetes Type II Musculoskeletal History: Arthritis GI Medical History: No Pertinent History History: No Pertinent History Psycho-Social History: Depression Male Reproductive Disorders: No Pertinent History Other Medical History: Chronic pain in right leg and goes to pain clinic for treatment; Dr. Keith - Past Surgical History Past Surgical History: Yes Neuro Surgical History: No Pertinent History Cardiac: No Pertinent History Respiratory: No Pertinent History Gastrointestinal: No Pertinent History Genitourinary: No Pertinent History Musculoskeletal: Orthopedic Surgery Male Surgical History: No Pertinent History Other Surgical History: 2 knee replacements right knee. Left shoulder surgery (states "put it together and put a screw in it") . right leg amputee 2021- revisions- last on 12/31 - Social History Smoking Status: Current every day smoker How long have you smoked: 30 years Exposure to second hand smoke: No Drug Use: none Patient Lives Alone: No (at the [facility]) - Nursing Vital Signs Nursing Vital Signs: Initial Vital Signs Temperature 97.9 F 01/21/23 20:18 Pulse Rate 67 01/21/23 20:18 Respiratory Rate 16 01/21/23 20:18 Blood Pressure 176/92 01/21/23 20:18 O2 Sat by Pulse Oximetry 95 01/21/23 20:18 Pain Scale Pain Intensity 7 - Physical Exam General Appearance: no apparent distress, alert Eye Exam: PERRL/EOMI Ears, Nose, Throat Exam: normal ENT inspection Neck Exam: normal inspection, full range of motion Respiratory Exam: normal breath sounds, lungs clear Cardiovascular Exam: regular rate/rhythm, normal heart sounds Gastrointestinal/Abdomen Exam: soft, No tenderness Back Exam: normal inspection Extremity Exam: normal range of motion, other (Right above-knee amputation. Well-healing stump for) Neurologic Exam: alert, oriented x 3, cooperative Skin Exam: normal color SpO2 Interpretation: normal SpO2: 95 O2 Delivery: Room Air Ordered Tests: Active Orders 24 hr Category Date Time Status IV Insertion STAT Care 01/21/23 21:02 Active CBC W DIFF Stat Lab 01/21/23 21:25 Completed CMP Stat Lab 01/21/23 21:25 Completed OB-FECAL SCREEN Stat Lab 01/21/23 Ordered PROTIME WITH INR Stat Lab 01/21/23 21:25 Completed PTT Stat Lab 01/21/23 21:25 Completed UA W/RFX UR CULTURE Stat Lab 01/21/23 21:03 Ordered Medication Summary Generic Name Dose Route Start Last Admin Trade Name Sharifa PRN Reason Stop Dose Admin Sodium Chloride 1,000 mls @ 100 mls/hr 01/21/23 21:15 Sodium Chloride 0.9% 1000 Ml IV 02/20/23 21:14 .Q10H RAMAN Lab/Rad Data: Laboratory Result Diagrams 01/21/23 21:25 01/21/23 21:25 Laboratory Results 01/21/23 01/21/23 01/21/23 Range/Units 21:25 21:25 21:25 WBC 6.0 (4.0-10.5) x10^3/uL RBC 3.60 L (4.1-5.6) x10^6/uL Hgb 8.0 L (12.5-18.0) g/dL Hct 27.6 L (42-50) % MCV 76.7 L (78-100) fL MCH 22.2 L (26-32) pg MCHC 29.0 L (32-36) g/dL RDW 15.5 H (11.5-14.0) % Plt Count 284 (150-450) x10^3/uL MPV 10.9 (7.5-11.0) fL Gran % 45.1 (36.0-66.0) % Immature Gran % (Auto) 0.2 (0.00-0.4) % Nucleat RBC Rel Count 0.0 (0.00-0.1) % Eos # (Auto) 0.37 (0-0.5) x10^3/uL Immature Gran # (Auto) 0.01 (0.00-0.03) x10^3u/L Absolute Lymphs (auto) 2.53 (1.0-4.6) x10^3/uL Absolute Monos (auto) 0.36 (0.0-1.3) x10^3/uL Absolute Nucleated RBC 0.00 (0.00-0.01) x10^3u/L Lymphocytes % 41.9 (24.0-44.0) % Monocytes % 6.0 (0.0-12.0) % Eosinophils % 6.1 H (0.00-5.0) % Basophils % 0.7 (0.0-0.4) % Absolute Granulocytes 2.73 (1.4-6.9) x10^3/uL Basophils # 0.04 (0-0.4) x10^3/uL PT 10.2 (9.4-12.5) SECONDS INR 0.93 (0.8-3.0) APTT 25.4 (25.1-36.5) SECONDS Sodium 138 (137-145) mmol/L Potassium 4.7 (3.5-5.1) mmol/L Chloride 103 (98-107) mmol/L Carbon Dioxide 27 (22-30) mmol/L Anion Gap 12.7 (5-15) MEQ/L BUN 17 (9-20) mg/dL Creatinine 0.83 (0.66-1.25) mg/dL Estimated GFR > 60.0 ML/MIN Glucose 245 H (74-106) mg/dL Calcium 8.9 (8.4-10.2) mg/dL Total Bilirubin 0.30 (0.2-1.3) mg/dL AST 17 (17-59) U/L ALT 17 (0-50) U/L Alkaline Phosphatase 85 (38-126) U/L Serum Total Protein 7.0 (6.3-8.2) g/dL Albumin 3.8 (3.5-5.0) g/dL - Progress Progress: unchanged Progress Note: 01/21/23 22:06 52 years old male with history of MRSA needing right above-knee amputation on December 31 at [facility], currently getting rehab at a senior care is sent in ER for possible transfusion as hemoglobin checked at Dr. Jaquez's office was 6.9. Patient denies any dark stool, chest pain palpitations or shortness of breath. Denies any hemoptysis or hematemesis/coffee-ground emesis. . Patient hemoglobin is 8.4. It was 8.6 few days ago. Patient is not in any distress. No symptomatic anemia. Fairly unremarkable chemistries. Do not think patient needs transfusions. I will start him on iron pill and have him outpatient follow-up with primary care and recheck H&H in 2 to 3 days. Counseled pt/family regarding: lab results, diagnosis, need for follow-up Medical Desision Making - Risk of complications The pt has a mod risk of morbidity or mortality based on: Need for prescription drug management - Departure Departure Disposition: Home Clinical Impression: Anemia Condition: Stable Critical Care Time: No Referrals: HARLEY NUÑEZ NP [Primary Care Provider] - Follow up with PCP 1 day Instructions: Anemia Caused by Low Iron, Adult (DC) Additional Instructions: Take high-protein diet. Continue with iron pill. Take stool softener with it. Follow-up with primary care for reevaluation. Recheck hemoglobin in 2 days. Return to ER if having dark stool, coffee-ground vomiting, chest pain palpitations or shortness of breath etc. Prescriptions: Ferrous Sulfate 325 mg [Feosol 325 mg] 325 mg PO DAILY 30 Days #30 tablet
[2023-01-21 22:15] LABS: ABO TYPING A; Antibody Screen NEGATIVE (NEGATIVE); RH TYPING POSITIVE
== END 2023-01-21 22:22 | disposition home or self-care (01) ==
LOC: ED 19:50
DX: D64.9 Anemia, unspecified (principal); E11.9 Type 2 diabetes mellitus without complications; Z79.891 Long term (current) use of opiate analgesic; Z79.899 Other long term (current) drug therapy; Z72.0 Tobacco use
CPT/HCPCS: 36415; 80053; 85025; 85610; 85730; 86850; 86900; 86901; 99282

== ENCOUNTER 2023-10-15 20:23 | Emergency (ER) | payer MEDICARE ==
--- NOTE | 2023-10-15 20:25 | ERPHSYRPT ---
- History of Present Illness Time Seen by Provider: 10/15/23 20:25 Historian: patient Exam Limitations: no limitations Physician History: This is a 53-year-old white male patient of Dr. Reddy who has a history of anxiety and insulin-dependent diabetes as well as hypertension. 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 Eventually, his extremity became so infected he required an [id number] amputation in November 2022. Patient was in [place] yesterday evening and noticed he was not feeling that great. This morning he woke up in his home and was not feeling well. Throughout the day his symptoms are worsening which includes nausea and multiple episodes of vomiting with left upper quadrant abdominal pain. Patient does have a history of diverticulitis in the past. He has not had any diarrhea. He states that he did cough up blood tasting sputum. Timing/Duration: today, worse Quality: cramping (Left upper quadrant left upper abdomen) Abdominal Pain Onset Location: [facility] Pain Radiation: no radiation Severity of Pain-Max: moderate Severity of Pain-Current: moderate Modifying Factors: Improves With: vomiting Associated Symptoms: loss of appetite, nausea, vomiting, No diarrhea, No fever/chills Previous symptoms: same symptoms as today (States that the symptoms he is currently having is similar to the symptoms he had when he had an episode of diverticulitis) Allergies/Adverse Reactions: No Known Drug Allergies Allergy (Verified 10/15/23 20:49) Home Medications: Quetiapine Fumarate 100 mg [Seroquel 100 MG] 300 mg PO HS 01/26/21 [History] Buprenorphine HCl/Naloxone HCl [Buprenorphin-Naloxon 8-2 mg Sl] 1 each PO TID 12/09/21 [History] OXcarbazepine [Trileptal] 600 mg PO DAILY 07/14/22 [History] Testosterone Cypionate 75 mg IM WEEKLY 07/14/22 [History] Insulin Degludec [Tresiba Flextouch U-100] 28 unit SQ DAILY 01/26/23 [History] Insulin Lispro [Humalog] 5 unit SQ QID 01/26/23 [History] Gabapentin 600 mg PO QID 10/15/23 [History] Hx Tetanus, Diphtheria Vaccination/Date Given: No Hx Influenza Vaccination/Date Given: No Hx Pneumococcal Vaccination/Date Given: No Travel Risk - International Travel Have you traveled outside of the country in past 3 weeks: No - Emerging Infectious Disease Are you exhibiting symptoms associated with any current EIDs: No - Review of Systems Constitutional: No Symptoms Eyes: No Symptoms Ears, Nose, & Throat: No Symptoms Respiratory: No Symptoms Cardiac: No Symptoms Abdominal/Gastrointestinal: Abdominal Pain, Nausea, Vomiting, Appetite Changes Genitourinary Symptoms: No Symptoms Musculoskeletal: No Symptoms Skin: No Symptoms Neurological: No Symptoms Psychological: No Symptoms Endocrine: No Symptoms Hematologic/Lymphatic: No Symptoms Immunological/Allergic: No Symptoms All Other Systems: Reviewed and Negative - Past Medical History Pertinent Past Medical History: Yes Neurological History: No Pertinent History ENT History: No Pertinent History Cardiac History: Hypertension Respiratory History: No Pertinent History Endocrine Medical History: Diabetes Type II Musculoskeletal History: Fractures GI Medical History: No Pertinent History History: No Pertinent History Psycho-Social History: Depression Male Reproductive Disorders: No Pertinent History Other Medical History: LEFT SHOULDER SURGERY - HAS SCREWS IN IT. PATIENT ACTIVE RECOVERY X 7 YEARS - PRESCRIPTION MEDS, METH AND ALCOHOL. - Past Surgical History Past Surgical History: Yes Neuro Surgical History: No Pertinent History Cardiac: No Pertinent History Respiratory: No Pertinent History Gastrointestinal: No Pertinent History Genitourinary: No Pertinent History Musculoskeletal: Orthopedic Surgery Male Surgical History: No Pertinent History Other Surgical History: 2 knee replacements right knee. Left shoulder surgery (states "put it together and put a screw in it") . right leg amputee 2021- revisions- last on 12/31 Significant Family History: no pertinent family hx - Social History Smoking Status: Former smoker How long have you smoked: 30 years Exposure to second hand smoke: No Drug Use: none Patient Lives Alone: No (REHAB) - Nursing Vital Signs Nursing Vital Signs: Initial Vital Signs Temperature 98.0 F 10/15/23 20:38 Pulse Rate 75 10/15/23 20:38 Respiratory Rate 18 10/15/23 20:38 Blood Pressure 161/103 10/15/23 20:38 O2 Sat by Pulse Oximetry 97 10/15/23 20:38 Pain Scale Pain Intensity 8 - Physical Exam General Appearance: no apparent distress, alert, anxiety Eye Exam: PERRL/EOMI, eyes nml inspection Ears, Nose, Throat Exam: normal ENT inspection, moist mucous membranes Neck Exam: normal inspection, non-tender, supple, full range of motion Respiratory Exam: normal breath sounds, lungs clear, airway intact, No chest tenderness, No respiratory distress Cardiovascular Exam: regular rate/rhythm, normal heart sounds, normal peripheral pulses Gastrointestinal/Abdomen Exam: soft, normal bowel sounds, tenderness (Left upper quadrant), guarding (Upper quadrant to palpation), No pulsatile mass, No rebound Rectal Exam: not done Back Exam: normal inspection, normal range of motion, No CVA tenderness, No vertebral tenderness Extremity Exam: normal inspection, normal range of motion, pelvis stable Neurologic Exam: alert, oriented x 3, cooperative, 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 as tested, normal mood/affect, sensation nml (Left lower extremity) Skin Exam: normal color, warm, dry, other (Right AKA stump is healed nicely) Lymphatic Exam: No adenopathy SpO2 Interpretation: normal O2 Delivery: Room Air - Course Nursing assessment & vital signs reviewed: Yes Ordered Tests: Active Orders 24 hr Category Date Time Status IV Insertion STAT Care 10/15/23 21:08 Active ABDOMEN AND PELVIS W/0 CONTRAS [CT] Stat Exams 10/15/23 21:08 Taken AMYLASE Stat Lab 10/15/23 21:15 Completed CBC W DIFF Stat Lab 10/15/23 21:15 Completed CMP Stat Lab 10/15/23 21:15 Completed LIPASE Stat Lab 10/15/23 21:15 Completed UA W/RFX UR CULTURE Stat Lab 10/15/23 21:49 Completed Medication Summary Generic Name Dose Route Start Last Admin Trade Name Freq PRN Reason Stop Dose Admin Sodium Chloride 1,000 mls @ 999 mls/hr 10/15/23 21:08 10/15/23 21:33 Sodium Chloride 0.9% 1000 Ml IV 10/15/23 22:08 999 mls/hr .Q1H1M STA Administration Discontinued Medications Generic Name Dose Route Start Last Admin Trade Name Freq PRN Reason Stop Dose Admin Hydromorphone HCl 1 mg 10/15/23 22:01 Hydromorphone 1 Mg/1ml Inj IV 10/15/23 22:02 STAT ONE Sodium Chloride Confirm 10/15/23 21:32 Sodium Chloride 0.9% 1000 Ml Administered 10/15/23 21:33 Dose 1,000 mls @ ud .ROUTE .STK-MED ONE Ondansetron HCl 4 mg 10/15/23 21:08 10/15/23 21:33 Ondansetron Hcl 4 Mg/2 Ml Vial IV 10/15/23 21:09 4 mg STAT ONE Administration Ondansetron HCl Confirm 10/15/23 21:32 Ondansetron Hcl 4 Mg/2 Ml Vial Administered 10/15/23 21:33 Dose 4 mg .ROUTE .STK-MED ONE Pantoprazole Sodium 40 mg 10/15/23 21:08 10/15/23 21:33 Pantoprazole 40 Mg Vial IV 10/15/23 21:09 40 mg STAT ONE Administration Pantoprazole Sodium Confirm 10/15/23 21:32 Pantoprazole 40 Mg Vial Administered 10/15/23 21:33 Dose 40 mg IV .STK-MED ONE Lab/Rad Data: Laboratory Result Diagrams 10/15/23 21:15 10/15/23 21:15 Laboratory Results 10/15/23 10/15/23 10/15/23 Range/Units 21:49 21:15 21:15 WBC 8.7 (4.0-10.5) x10^3/uL RBC 5.25 (4.1-5.6) x10^6/uL Hgb 15.3 (12.5-18.0) g/dL Hct 45.7 (42-50) % MCV 87.0 (78-100) fL MCH 29.1 (26-32) pg MCHC 33.5 (32-36) g/dL RDW 11.9 (11.5-14.0) % Plt Count 168 (150-450) x10^3/uL MPV 10.5 (7.5-11.0) fL Gran % 73.7 H (36.0-66.0) % Immature Gran % (Auto) 0.2 (0.00-0.4) % Nucleat RBC Rel Count 0.0 (0.00-0.1) % Eos # (Auto) 0.24 (0-0.5) x10^3/uL Immature Gran # (Auto) 0.02 (0.00-0.03) x10^3u/L Absolute Lymphs (auto) 1.44 (1.0-4.6) x10^3/uL Absolute Monos (auto) 0.56 (0.0-1.3) x10^3/uL Absolute Nucleated RBC 0.00 (0.00-0.01) x10^3u/L Lymphocytes % 16.6 L (24.0-44.0) % Monocytes % 6.5 (0.0-12.0) % Eosinophils % 2.8 (0.00-5.0) % Basophils % 0.2 (0.0-0.4) % Absolute Granulocytes 6.38 (1.4-6.9) x10^3/uL Basophils # 0.02 (0-0.4) x10^3/uL Sodium 136 (135-145) mmol/L Potassium 4.6 (3.5-5.1) mmol/L Chloride 104 (98-107) mmol/L Carbon Dioxide 24 (22-30) mmol/L Anion Gap 12.2 (5-15) MEQ/L BUN 27 H (9-20) mg/dL Creatinine 1.11 (0.66-1.25) mg/dL Estimated GFR 79.4 ML/MIN Glucose 144 H (74-106) mg/dL Calcium 9.5 (8.4-10.2) mg/dL Total Bilirubin 0.70 (0.2-1.3) mg/dL AST 20 (17-59) U/L ALT 28 (0-50) U/L Alkaline Phosphatase 82 (38-126) U/L Serum Total Protein 7.4 (6.3-8.2) g/dL Albumin 4.1 (3.5-5.0) g/dL Amylase 52 (30-110) U/L Lipase 26 (23-300) U/L Urine Color Yellow (Yellow) Urine Appearance Clear (Clear) Urine pH 5.5 (4.6-8.0) Ur Specific Wy[place]off >=1.030 A (1.005-1.030) Urine Protein 100 A (Negative) Urine Glucose (UA) 250 A (Negative) mg/dL Urine Ketones Negative (Negative) Urine Blood Negative (Negative) Urine Nitrite Negative (Negative) Urine Bilirubin Negative (Negative) Urine Urobilinogen 1.0 A (0.2) mg/dL Ur Leukocyte Esterase Negative (Negative) U Hyaline Cast (Auto) NONE SEEN (0-2) /LPF Urine Microscopic RBC 0-2 (0-5) /HPF Urine Microscopic WBC 0-2 (0-5) /HPF Ur Epithelial Cells Rare (None Seen) /HPF Urine Bacteria None Seen (None Seen) /HPF Urine Culture Reflexed NO (NO) - Progress Progress: improved, pain not gone completely, re-examined Progress Note: 10/15/23 21:22 My decision making and the assignment of moderate complexity to the patient's medical issue is based on review of the patient's past medical history, review of the patient's medication list, review the patient drug allergy list, history present illness and physical findings on examination. The workup in this patient includes placement of intravenous line, infusion of normal saline solution, infusion of Dilaudid, infusion of Protonix,of Zofran, CBC, CMP, amylase, lipase, urinalysis, CT scan of the abdomen pelvis without contrast. Differential diagnosis includes gastritis, diverticulitis, gastric ulcer, bowel obstruction, intra-abdominal free air/free fluid 10/15/23 22:03 I interpreted the patient's laboratory data results. Based on the laboratory data results, the patient does not have an acute or emergent medical issue. CT scan of the abdomen pelvis without contrast was interpreted by the radiologist and I reviewed the impression. Impression straits normal appendix. New distended gallbladder without gallstones. There is mild diffuse enteritis. There is moderate diffuse fecal stasis. Counseled pt/family regarding: lab results, diagnosis, need for follow-up, rad results Medical Desision Making - Diagnostic Testing Diagnostic test were ordered, analyzed, and reviewed by me: Yes Radiological Interpretation: Reviewed by me, Teleradiologist Report - Risk of complications The pt has a mod risk of morbidity or mortality based on: Need for prescription drug management - Departure Departure Disposition: Home Clinical Impression: Enteritis Condition: Stable Critical Care Time: No Referrals: STEVE REDDY MD [Primary Care Provider] - Follow up/PCP as directed Additional Instructions: Drink plenty of fluids. Avoid fatty greasy spicy foods. Take your antibiotics as prescribed. Use Tylenol and ibuprofen for pain control beginning tomorrow, 10/16/2023. Prescriptions: Ondansetron ODT 4 MG [Zofran Odt 4 mg] 4 mg PO Q6H PRN PRN #10 tablet PRN Reason: Vomiting Ciprofloxacin [Cipro 500 MG] 500 mg PO BID #14 tablet Metronidazole 500 mg [Flagyl 500 MG] 500 mg PO TID #21 tablet
[2023-10-15 20:45] VITALS: RESP 18; TEMP 98
[2023-10-15 21:26] LABS: Absolute Neutrophil Ct (ANC) 6.38 x10^3/uL (1.4-6.9); BASOPHIL % 0.2 % (0.0-0.4); Basophil (Absolute #) 0.02 x10^3/uL (0-0.4); Eosinophil % 2.8 % (0.00-5.0); Eosinophil (Absolute #) 0.24 x10^3/uL (0-0.5); Hematocrit 45.7 % (42-50); Hemoglobin 15.3 g/dL (12.5-18.0); IMMATURE GRAN # 0.02 x10^3u/L (0.00-0.03); IMMATURE GRAN % 0.2 % (0.00-0.4); Lymphocyte (Absolute #) 1.44 x10^3/uL (1.0-4.6); Lymphocytes % 16.6 % (24.0-44.0); Mean Corpuscular Hemoglobin 29.1 pg (26-32); Mean Corpuscular Hgb Concent. 33.5 g/dL (32-36); Mean Platelet Volume 10.5 fL (7.5-11.0); Monocyte (Absolute #) 0.56 x10^3/uL (0.0-1.3); Monocytes % 6.5 % (0.0-12.0); Neutrophil % 73.7 % (36.0-66.0); Platelet Count 168 x10^3/uL (150-450); Red Blood Count 5.25 x10^6/uL (4.1-5.6); Red Cell Distribution Width 11.9 % (11.5-14.0); White Blood Count 8.7 x10^3/uL (4.0-10.5)
[2023-10-15] MEDS ORDERED: Zofran 4 MG/2 ML VIAL ONE (21:32)
[2023-10-15] MEDS ORDERED: Sodium Chloride 0.9% 1000 ML 1,000 ML ONE (21:32)
[2023-10-15] MEDS ORDERED: PROTONIX 40 MG IV IV ONE (21:32)
[2023-10-15] MEDS: Sodium Chloride 0.9% 1000 ML 1,000 ML IV STA (21:33)
[2023-10-15] MEDS: PROTONIX 40 MG IV IV ONE (21:33)
[2023-10-15] MEDS: Zofran 4 MG/2 ML VIAL IV ONE (21:33)
[2023-10-15 21:38] LABS: ALBUMIN 4.1 g/dL (3.5-5.0); ANION GAP 12.2 MEQ/L (5-15); BILIRUBIN,TOTAL 0.7 mg/dL (0.2-1.3); Calcium 9.5 mg/dL (8.4-10.2); Creatinine 1 1.11 mg/dL (0.66-1.25); EST GLOMERULAR FILTRATION RATE 79.4 ML/MIN; Potassium 4.6 mmol/L (3.5-5.1); Total Protein 7.4 g/dL (6.3-8.2)
[2023-10-15 21:57] LABS: ADD URINE CULTURE? NO (NO); Appearance Clear (Clear); Bacteria None Seen /HPF (None Seen); Bilirubin Negative (Negative); Blood Negative (Negative); Epithelial Cells Rare /HPF (None Seen); Glucose, Urine 250 mg/dL (Negative); Hyaline Casts NONE SEEN /LPF (0-2); Ketones Negative (Negative); Leukocyte Esterase Negative (Negative); Nitrite Negative (Negative); Ph 5.5 (4.6-8.0); Protein,Urine Dip 100 (Negative); RBC 0-2 /HPF (0-5); Specific Gravity >=1.030 (1.005-1.030); WBC 0-2 /HPF (0-5)
[2023-10-15] MEDS ORDERED: Hydromorphone 1 mg/ml Injection ONE (22:06)
[2023-10-15] MEDS: Hydromorphone 1 mg/ml Injection IV ONE (22:09)
[2023-10-15] MEDS: NORCO 5/325 MG PO ONE (22:17)
[2023-10-15] MEDS ORDERED: NORCO 5/325 MG ONE (22:17)
[2023-10-15 22:26] VITALS: BP 120/80; PULSE 63; O2SAT 94
--- NOTE | 2023-10-16 07:54 | XRAY ---
Indication: Left upper quadrant abdominal pain. Multiple contiguous axial images obtained through the abdomen and pelvis without contrast. Comparison: April 16, 2020 Lung bases demonstrates minimal dependent atelectasis with stable tiny left base calcified granuloma. No infiltrate or effusion. Heart not enlarged. Noncontrasted stomach and bowel loops appear nonobstructed. New mild uniformly fluid distended small bowel loops with fluid leveling, ileus versus enteritis. Small pelvic free fluid presumed reactive. No free air. Normal appendix. New moderate diffuse fecal debris throughout. New moderately distended gallbladder without gallstones or biliary distention. Remaining liver, pancreas, spleen, adrenal glands, kidneys, ureters, and bladder are unremarkable for noncontrast exam. Again minimal aortoiliac calcification without AAA. Osseous structures intact with again minimal degenerative changes throughout the spine. No ventral or inguinal hernias. Impression: 1. New fluid distended small bowel loops with fluid leveling, ileus versus enteritis. Small pelvic fluid presumed reactive. 2. New diffuse fecal stasis. 3. New distended gallbladder. Sonogram may yield further information if clinically warranted. 4. Again chronic findings including arteriosclerotic disease, degenerative spondylosis, and left lung calcified granuloma.
== END 2023-10-15 22:32 | disposition home or self-care (01) ==
LOC: ED 20:23
DX: K52.9 Noninfective gastroenteritis and colitis, unspecified (principal); R10.12 Left upper quadrant pain; E11.9 Type 2 diabetes mellitus without complications; I10 Essential (primary) hypertension; F41.9 Anxiety disorder, unspecified
CPT/HCPCS: 36000; 36415; 74176; 80053; 81001; 82150; 83690; 85025; 96368; 96374; 96375; 99284; J1170; J2405; A9270-GY

== ENCOUNTER 2024-02-11 06:16 | Day surgery (SDC) | payer MEDICARE ==
[2024-02-11] MEDS ORDERED: Lactated Ringers 1,000 ML IV ONE (06:42)
[2024-02-11 07:02] VITALS: RESP 18
[2024-02-11] MEDS ORDERED: DIPRIVAN 200 MG/20 ML IV ONE ×3 (07:48→08:33)
[2024-02-11] MEDS ORDERED: Versed 2 MG/2 ML Injection ONE (07:51)
[2024-02-11 09:15] VITALS: BP 116/78; PULSE 54; TEMP 96.3; O2SAT 99
--- NOTE | 2024-02-13 13:12 | OP ---
SURGERY DATE/TIME: 02/11/2024 0800 - [id number] PREOPERATIVE DIAGNOSIS: Screening exam. POSTOPERATIVE DIAGNOSIS: Inadequate exam. PROCEDURE: Colonoscopy. SURGEON: Henrik Khoury MD ANESTHESIA: Medications were given by the anesthesia department. INDICATIONS: The patient is a 53-year-old white male patient presenting now for colonoscopic evaluation. He was apprised of the risks of the procedure including the risk of perforation, phlebitis, untoward reaction to medication, bleeding, and missed lesions. The patient verbalized understanding and desired to have the procedure performed. DESCRIPTION OF PROCEDURE AND FINDINGS: The patient was placed in left lateral decubitus position. Digital rectal examination was performed and revealed normal anal sphincter tone, no masses, and a normal prostate. The flexible Olympus videocolonoscope was used to intubate the rectum. There was noted to immediately be mostly solid to semi-solid stool noted throughout the colon. We suctioned approximately 650 mL of stool out of the colon but we were still unable to provide an adequate view of the colon. The procedure was abandoned. The scope was removed from the patient. He tolerated the procedure well and was sent to outpatient recovery in good condition.
== END 2024-02-11 09:20 | disposition home or self-care (01) ==
LOC: SDC 06:16
PROVIDERS: ATTEND Family Medicine
DX: Z12.11 Encounter for screening for malignant neoplasm of colon (principal); E11.9 Type 2 diabetes mellitus without complications
CPT/HCPCS: 82947; J2250; J2704

== ENCOUNTER 2024-06-27 05:50 | Emergency (ER) | payer MEDICARE ==
--- NOTE | 2024-06-27 06:02 | ERPHSYRPT ---
- History of Present Illness Historian: patient Exam Limitations: no limitations Timing/Duration: today Activities at Onset: none Quality: cramping, sharpness, stabbing Abdominal Pain Onset Location: generalized abdomen Pain Radiation: no radiation Severity of Pain-Max: moderate Severity of Pain-Current: moderate Modifying Factors: Improves With: vomiting, other (Diarrhea) Associated Symptoms: diarrhea, loss of appetite, nausea, vomiting, weakness Hx Tetanus, Diphtheria Vaccination/Date Given: No Hx Influenza Vaccination/Date Given: No Hx Pneumococcal Vaccination/Date Given: No <CLEMENCIA HUERTA - Last Filed: 06/27/24 06:48> <GURINDER LOPEZ - Last Filed: 06/27/24 09:22> - History of Present Illness Time Seen by Provider: 06/27/24 06:02 Physician History: This is a 54-year-old white male patient who arrives by private vehicle with a complaint of sudden onset of abdominal pain, vomiting and diarrhea approximately at the same time. He describes the abdominal pain as diffuse, generalized, sharp and crampy. He has no known exposure to individuals with similar symptoms or have been diagnosed with viral illness. Patient does have a history of narcotic abuse in the past and is taking buprenorphine. 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 Patient denies chest pain and he denies shortness of breath. (CLEMENCIA HUERTA) Allergies/Adverse Reactions: No Known Drug Allergies Allergy (Verified 06/27/24 06:21) Home Medications: Quetiapine Fumarate 100 mg [Seroquel 100 MG] 300 mg PO HS 01/26/21 [Histor y] Buprenorphine HCl/Naloxone HCl [Buprenorphine-Nalox 8-2 mg Tab] 1 each PO TID 12/09/21 [History] OXcarbazepine [Trileptal] 300 mg PO BID 07/14/22 [History] Testosterone Cypionate 75 mg IM WEEKLY 07/14/22 [History] Gabapentin 600 mg PO QID 10/15/23 [History] Buspirone HCl 15 mg PO DAILY 01/31/24 [History] Lisinopril 10 mg [Zestril 10 MG] 10 mg PO DAILY 01/31/24 [History] Prazosin HCl 2 mg PO DAILY 01/31/24 [History] Insulin Glargine [Lantus Insulin] 28 units SQ DAILY 02/11/24 [History] Travel Risk - International Travel Have you traveled outside of the country in past 3 weeks: No - Emerging Infectious Disease Are you exhibiting symptoms associated with any current EIDs: No Symptoms: Abdominal Pain, Vomitting <CLEMENCIA HUERTA - Last Filed: 06/27/24 06:48> - Review of Systems Constitutional: Weakness Eyes: No Symptoms Ears, Nose, & Throat: No Symptoms Respiratory: No Symptoms Cardiac: No Symptoms Abdominal/Gastrointestinal: Abdominal Pain, Nausea, Vomiting, Diarrhea, Appetite Changes Genitourinary Symptoms: No Symptoms Musculoskeletal: No Symptoms Skin: No Symptoms Neurological: No Symptoms Psychological: No Symptoms Endocrine: No Symptoms Hematologic/Lymphatic: No Symptoms Immunological/Allergic: No Symptoms All Other Systems: Reviewed and Negative <CLEMENCIA HUERTA - Last Filed: 06/27/24 06:48> - Past Medical History Pertinent Past Medical History: Yes Neurological History: No Pertinent History ENT History: No Pertinent History Cardiac History: Hypertension Respiratory History: No Pertinent History Endocrine Medical History: Diabetes Type II Musculoskeletal History: Fractures GI Medical History: No Pertinent History History: No Pertinent History Psycho-Social History: Depression Male Reproductive Disorders: No Pertinent History Other Medical History: LEFT SHOULDER SURGERY - HAS SCREWS IN IT. PATIENT ACTIVE RECOVERY X 8 YEARS - PRESCRIPTION MEDS, METH AND ALCOHOL. - Past Surgical History Past Surgical History: Yes Neuro Surgical History: No Pertinent History Cardiac: No Pertinent History Respiratory: No Pertinent History Gastrointestinal: No Pertinent History Genitourinary: No Pertinent History Musculoskeletal: Orthopedic Surgery Male Surgical History: No Pertinent History Other Surgical History: 2 knee replacements right knee. Left shoulder surgery (states "put it together and put a screw in it") . right leg amputee 2021- revisions- last on 12/31 Significant Family History: no pertinent family hx - Social History Smoking Status: Former smoker How long have you smoked: 30 years Exposure to second hand smoke: No Drug Use: none Patient Lives Alone: No (REHAB) - Social Determinants of Health Will the patient participate in the screening: Yes Do you worry about a steady place to live?: No In the past 12 months,have you had to go without utilities?: No Transportation Issues: No Has anyone in your support network made you feel unsafe?: No Have you or anyone in your house had to go without enough: No <HUERTACLEMENCIA ValeriMarcel - Last Filed: 06/27/24 06:48> - Physical Exam General Appearance: mild distress, alert, anxiety Eye Exam: PERRL/EOMI, eyes nml inspection Ears, Nose, Throat Exam: normal ENT inspection, moist mucous membranes Neck Exam: normal inspection, non-tender, supple, full range of motion Respiratory Exam: normal breath sounds, lungs clear, airway intact, No chest tenderness, No respiratory distress Cardiovascular Exam: regular rate/rhythm, normal heart sounds, normal peripheral pulses Gastrointestinal/Abdomen Exam: soft, normal bowel sounds, tenderness, guarding, No rebound Rectal Exam: not done Back Exam: normal inspection, normal range of motion, No CVA tenderness, No vertebral tenderness Extremity Exam: normal inspection, normal range of motion, pelvis stable Neurologic Exam: alert, oriented x 3, cooperative, lap hand tool II-XII nml as tested, nml cerebellar function, nml station & gait, sensation nml Skin Exam: normal color, warm, dry Lymphatic Exam: No adenopathy SpO2 Interpretation: normal O2 Delivery: Room Air <CLEMENCIA HUERTA - Last Filed: 06/27/24 06:48> - Nursing Vital Signs Nursing Vital Signs: Initial Vital Signs Temperature 97.1 F 06/27/24 06:14 Pulse Rate 73 06/27/24 06:14 Respiratory Rate 16 06/27/24 06:14 Blood Pressure 143/79 06/27/24 06:14 O2 Sat by Pulse Oximetry 96 06/27/24 06:14 Pain Scale Pain Intensity 4 - Course Nursing assessment & vital signs reviewed: Yes <CLEMENCIA HUERTA - Last Filed: 06/27/24 06:48> Ordered Tests: Active Orders 24 hr Category Date Time Status IV Insertion STAT Care 06/27/24 06:29 Active ABDOMEN AND PELVIS W/0 CONTRAS [CT] Stat Exams 06/27/24 06:37 Completed AMYLASE Stat Lab 06/27/24 06:57 Completed CBC W DIFF Stat Lab 06/27/24 06:57 Completed CMP Stat Lab 06/27/24 06:57 Completed LIPASE Stat Lab 06/27/24 06:57 Completed MONO SCREEN Stat Lab 06/27/24 06:57 Completed UA W/RFX UR CULTURE Stat Lab 06/27/24 06:29 Ordered Medication Summary Discontinued Medications Generic Name Dose Route Start Last Admin Trade Name Freq PRN Reason Stop Dose Admin Hydromorphone HCl 0.5 mg 06/27/24 06:37 06/27/24 06:50 Hydromorphone 1 Mg/1ml Inj IV 06/27/24 06:38 0.5 mg STAT ONE Administration Hydromorphone HCl Confirm 06/27/24 06:48 Hydromorphone 1 Mg/1ml Inj Administered 06/27/24 06:49 Dose 1 mg .ROUTE .STK-MED ONE Sodium Chloride 1,000 mls @ 999 mls/hr 06/27/24 06:29 06/27/24 07:44 Sodium Chloride 0.9% 1000 Ml IV 06/27/24 07:29 Infused .Q1H1M STA Infusion Sodium Chloride Confirm 06/27/24 06:38 Sodium Chloride 0.9% 1000 Ml Administered 06/27/24 06:39 Dose 1,000 mls @ ud .ROUTE .STK-MED ONE Pantoprazole Sodium 40 mg 06/27/24 06:29 06/27/24 06:42 Pantoprazole 40 Mg Vial IV 06/27/24 06:30 40 mg STAT ONE Administration Pantoprazole Sodium Confirm 06/27/24 06:38 Pantoprazole 40 Mg Vial Administered 06/27/24 06:39 Dose 40 mg IV .STK-MED ONE Prochlorperazine Edisylate 5 mg 06/27/24 06:29 06/27/24 06:41 Prochlorperazine Edisylate 10 Mg/2 Ml Vial IV 06/27/24 06:30 5 mg STAT ONE Administration Prochlorperazine Edisylate Confirm 06/27/24 06:38 Prochlorperazine Edisylate 10 Mg/2 Ml Vial Administered 06/27/24 06:39 Dose 10 mg .ROUTE .STK-MED ONE Lab/Rad Data: Laboratory Result Diagrams 06/27/24 06:57 06/27/24 06:57 Laboratory Results 06/27/24 06/27/2406/27/24 Range/Units 06:57 06:57 06:57 WBC (4.23-9.07) x10^3/uL RBC (4.63-6.08) x10^6/uL Hgb (13.7-17.5) g/dL Hct (40.1-51.0) % MCV (79.0-92.2) fL MCH (25.7-32.2) pg MCHC (32.3-36.5) g/dL RDW (11.6-14.4) % Plt Count (163-337) x10^3/uL MPV (9.4-12.4) fL Gran % (34.0-67.9) % Immature Gran % (Auto) (0.001-0.429) % Nucleat RBC Rel Count (0.00-0.2) % Eos # (Auto) (0.04-0.54) x10^3/uL Immature Gran # (Auto) (0.001-0.031) x10^3u/L Absolute Lymphs (auto) (1.32-3.57) x10^3/uL Absolute Monos (auto) (0.30-0.82) x10^3/uL Absolute Nucleated RBC (0.00-0.012) x10^3u/L Lymphocytes % (21.8-53.1) % Monocytes % (5.3-12.2) % Eosinophils % (0.8-7.0) % Basophils % (0.2-1.2) % Absolute Granulocytes (1.78-5.38) x10^3/uL Basophils # (0.01-0.08) x10^3/uL Sodium 137 (135-145) mmol/L Potassium 5.2 H (3.5-5.1) mmol/L Chloride 101 (98-107) mmol/L Carbon Dioxide 28 (22-30) mmol/L Anion Gap 14.3 (5-15) MEQ/L BUN 19 (9-20) mg/dL Creatinine 1.06 (0.66-1.25) mg/dL Estimated GFR 83.4 ML/MIN Glucose 294 H (74-106) mg/dL Calcium 9.8 (8.4-10.2) mg/dL Total Bilirubin 1.10 (0.2-1.3) mg/dL AST 29 (17-59) U/L ALT 18 (0-50) U/L Alkaline Phosphatase 87 (38-126) U/L Serum Total Protein 7.3 (6.3-8.2) g/dL Albumin 4.8 (3.5-5.0) g/dL Amylase 44 (30-110) U/L Lipase 28 (23-300) U/L Monoscreen WEAKLY POSITIVE (NEGATIVE) Influenza Type A Ag NEGATIVE (NEGATIVE) Influenza Type B Ag NEGATIVE (NEGATIVE) RSV (PCR) NEGATIVE (NEGATIVE) SARS-CoV-2 (PCR) NEGATIVE (NEGATIVE) 06/27/24 Range/Units 06:57 WBC 9.5 H (4.23-9.07) x10^3/uL RBC 4.96 (4.63-6.08) x10^6/uL Hgb 15.0 (13.7-17.5) g/dL Hct 44.6 (40.1-51.0) % MCV 89.9 (79.0-92.2) fL MCH 30.2 (25.7-32.2) pg MCHC 33.6 (32.3-36.5) g/dL RDW 12.3 (11.6-14.4) % Plt Count 141 L (163-337) x10^3/uL MPV 11.3 (9.4-12.4) fL Gran % 89.8 H (34.0-67.9) % Immature Gran % (Auto) 0.4 (0.001-0.429) % Nucleat RBC Rel Count 0.0 (0.00-0.2) % Eos # (Auto) 0.19 (0.04-0.54) x10^3/uL Immature Gran # (Auto) 0.04 H (0.001-0.031) x10^3u/L Absolute Lymphs (auto) 0.38 L (1.32-3.57) x10^3/uL Absolute Monos (auto) 0.34 (0.30-0.82) x10^3/uL Absolute Nucleated RBC 0.00 (0.00-0.012) x10^3u/L Lymphocytes % 4.0 L (21.8-53.1) % Monocytes % 3.6 L (5.3-12.2) % Eosinophils % 2.0 (0.8-7.0) % Basophils % 0.2 (0.2-1.2) % Absolute Granulocytes 8.53 H (1.78-5.38) x10^3/uL Basophils # 0.02 (0.01-0.08) x10^3/uL Sodium (135-145) mmol/L Potassium (3.5-5.1) mmol/L Chloride (98-107) mmol/L Carbon Dioxide (22-30) mmol/L Anion Gap (5-15) MEQ/L BUN (9-20) mg/dL Creatinine (0.66-1.25) mg/dL Estimated GFR ML/MIN Glucose (74-106) mg/dL Calcium (8.4-10.2) mg/dL Total Bilirubin (0.2-1.3) mg/dL AST (17-59) U/L ALT (0-50) U/L Alkaline Phosphatase (38-126) U/L Serum Total Protein (6.3-8.2) g/dL Albumin (3.5-5.0) g/dL Amylase (30-110) U/L Lipase (23-300) U/L Monoscreen (NEGATIVE) Influenza Type A Ag (NEGATIVE) Influenza Type B Ag (NEGATIVE) RSV (PCR) (NEGATIVE) SARS-CoV-2 (PCR) (NEGATIVE) <CLEMENCIA HUERTA - Last Filed: 06/27/24 06:48> - Progress Progress: improved Counseled pt/family regarding: lab results, diagnosis, need for follow-up, rad results <GURINDER LOPEZ - Last Filed: 06/27/24 09:22> - Progress Progress Note: 06/27/24 06:53 My medical decision making and the assignment of moderate complexity to this patient's medical issue today is based on review of the patient's past medical history, review of patient's medication list, review of the patient's drug allergy list, history present dose and physical findings on examination. The workup in this patient includes placement of intravenous line, infusion of normal saline solution, infusion of Compazine, infusion of Protonix, infusion of half a milligram of Dilaudid intravenously, CBC, CMP, amylase, lipase, urinalysis, CT scan of the abdomen pelvis without contrast, viral swabs and monotest. Differential diagnosis includes but is not limited to viral illness, acute intra-abdominal/pelvic abnormality, pancreatitis, colitis/diverticulitis I am transferring care to Dr. Lopez at shift change. I we will review patient past medical history, presenting complaint, physical findings on examination, workup results that are pending. He will follow-up on those results and make final disposition. (CLEMENCIA HUERTA) 06/27/24 09:18 Patient is checked out to me at shift change from Dr. Huerta with pending CT abdomen pelvis. Patient presented with abdominal pain nausea vomiting and diarrhea. He is given symptomatic treatment, during my evaluation he is feeling better. No abdominal tenderness at all. CT showed finding consistent with enteritis and also some gallstones/sludge but patient does not have any right upper quadrant tenderness. I believe patient's symptoms are more of a gastroenteritis. White count is 9, chemistries fairly unremarkable except for elevated glucose and patient is given fluids and does have insulin at home. I would give him Zofran to go home and outpatient follow-up recommended with primary care and discussed signs symptoms of worsening needing return to ER which he seems understanding. Stable for discharge. I have discussed with him about outpatient follow-up with general surgery for his gallstone but he is not interested at this moment. (GURINDER LOPEZ) Medical Desision Making - Diagnostic Testing Diagnostic test were ordered, analyzed, and reviewed by me: Yes Radiological Interpretation: Reviewed by me - Risk of complications The pt has a mod risk of morbidity or mortality based on: Need for prescription drug management <GURINDER LOPEZ - Last Filed: 06/27/24 09:22> - Departure Departure Disposition: Home Critical Care Time: No <CLEMENCIA HUERTA - Last Filed: 06/27/24 06:48> - Departure Departure Disposition: Home <GURINDER LOPEZ - Last Filed: 06/27/24 09:22> - Departure Clinical Impression: Abdominal pain, Vomiting and diarrhea, Gastroenteritis Condition: Stable Referrals: HARLEY NUÑEZ [employer]ATOR [Primary Care Provider] - Follow up with PCP 1 day Instructions: Viral gastroenteritis in adults, Nausea and vomiting in adults - ED discharge instructions Additional Instructions: Drink plenty of fluids to keep yourself well-hydrated. Take Tylenol as needed. Continue with your buprenorphine. Follow-up with primary care for reevaluation. May also need outpatient general surgery follow-up for your gallstones. Return to ER for intractable abdominal pain/vomiting/diarrhea/fever chills etc. Prescriptions: Ondansetron ODT 4 MG [Zofran Odt 4 mg] 1 ea PO QIDPRN PRN #7 tablet PRN Reason: n/v
[2024-06-27 06:21] VITALS: TEMP 97.1; O2SAT 96
[2024-06-27] MEDS ORDERED: Compazine 10 MG/2 ML ONE (06:38)
[2024-06-27] MEDS ORDERED: Sodium Chloride 0.9% 1000 ML 1,000 ML ONE (06:38)
[2024-06-27] MEDS ORDERED: PROTONIX 40 MG IV IV ONE (06:38)
[2024-06-27] MEDS: Sodium Chloride 0.9% 1000 ML 1,000 ML IV STA (06:41)
[2024-06-27] MEDS: Compazine 10 MG/2 ML IV ONE (06:41)
[2024-06-27] MEDS: PROTONIX 40 MG IV IV ONE (06:42)
[2024-06-27] MEDS ORDERED: Hydromorphone 1 mg/ml Injection ONE (06:48)
[2024-06-27] MEDS: Hydromorphone 1 mg/ml Injection IV ONE (06:50)
[2024-06-27 06:58] LABS: Absolute Neutrophil Ct (ANC) 8.53 x10^3/uL (1.78-5.38); BASOPHIL % 0.2 % (0.2-1.2); Basophil (Absolute #) 0.02 x10^3/uL (0.01-0.08); Eosinophil (Absolute #) 0.19 x10^3/uL (0.04-0.54); Hematocrit 44.6 % (40.1-51.0); IMMATURE GRAN # 0.04 x10^3u/L (0.001-0.031); IMMATURE GRAN % 0.4 % (0.001-0.429); Lymphocyte (Absolute #) 0.38 x10^3/uL (1.32-3.57); Mean Cell Volume 89.9 fL (79.0-92.2); Mean Corpuscular Hemoglobin 30.2 pg (25.7-32.2); Mean Corpuscular Hgb Concent. 33.6 g/dL (32.3-36.5); Mean Platelet Volume 11.3 fL (9.4-12.4); Monocyte (Absolute #) 0.34 x10^3/uL (0.30-0.82); Monocytes % 3.6 % (5.3-12.2); Neutrophil % 89.8 % (34.0-67.9); Platelet Count 141 x10^3/uL (163-337); Red Blood Count 4.96 x10^6/uL (4.63-6.08); Red Cell Distribution Width 12.3 % (11.6-14.4); White Blood Count 9.5 x10^3/uL (4.23-9.07)
[2024-06-27 07:33] VITALS: PULSE 66; RESP 18
[2024-06-27 07:35] LABS: ALBUMIN 4.8 g/dL (3.5-5.0); ANION GAP 14.3 MEQ/L (5-15); BILIRUBIN,TOTAL 1.1 mg/dL (0.2-1.3); Calcium 9.8 mg/dL (8.4-10.2); Creatinine 1 1.06 mg/dL (0.66-1.25); EST GLOMERULAR FILTRATION RATE 83.4 ML/MIN; Potassium 5.2 mmol/L (3.5-5.1); Total Protein 7.3 g/dL (6.3-8.2)
[2024-06-27 07:55] LABS: INFLUENZA A NEGATIVE (NEGATIVE); INFLUENZA B NEGATIVE (NEGATIVE); RESPIRATORY SYNCTIAL VIRUS NEGATIVE (NEGATIVE); SARS-CoV-2 Xpert Express NEGATIVE (NEGATIVE)
--- NOTE | 2024-06-27 08:39 | XRAY ---
Indication: Abdomen pain. Multiple contiguous axial images obtained through the abdomen and pelvis without contrast. Comparison: October 15, 2023 Lung bases clear. Heart not enlarged. Noncontrasted stomach and bowel loops appear nonobstructed with normal appendix. Several jejunal bowel loops are again mildly fluid distended with circumferential wall thickening favoring enteritis. No free fluid/air. New tiny gallstones/gravel. Remaining liver, gallbladder, pancreas, spleen, adrenal glands, kidneys, ureters, and bladder are unremarkable for noncontrast exam. Again minimal aortic calcifications without AAA. Osseous structures intact again with minimal degenerative changes throughout spine. Impression: 1. Again CT features favoring mild enteritis. 2. Tiny gallstones/gravel. 3. Chronic findings including arteriosclerotic disease and chronic bony findings.
[2024-06-27 09:21] VITALS: BP 146/72
[2024-06-27 09:26] LABS: Slide Review 1 YES
== END 2024-06-27 09:27 | disposition home or self-care (01) ==
LOC: ED 05:50
DX: K52.9 Noninfective gastroenteritis and colitis, unspecified (principal); R10.9 Unspecified abdominal pain; R11.2 Nausea with vomiting, unspecified; E11.9 Type 2 diabetes mellitus without complications; I10 Essential (primary) hypertension; Z79.891 Long term (current) use of opiate analgesic; Z79.4 Long term (current) use of insulin; Z79.899 Other long term (current) drug therapy
CPT/HCPCS: 0241U; 36415; 74176; 80053; 82150; 83690; 85025; 86308; 96360; 96374; 96375; 99285; 99284; J1171

== ENCOUNTER 2024-10-11 13:43 | Emergency (ER) | payer MEDICARE ==
[2024-10-11 13:58] VITALS: RESP 18; TEMP 97.2
[2024-10-11] MEDS ORDERED: Ventolin Hfa MDI IH PRN (14:08)
--- NOTE | 2024-10-11 14:10 | ERPHSYRPT ---
- History of Present Illness Source: patient Exam Limitations: no limitations Patient Subjective Stated Complaint: pt here for cough, congestion since cleaning out a turkey barn last week Triage Nursing Assessment: pt alert, resp easy, skin w.d.p. occ cough, pt is right leg amputee, no edema to left leg Physician History: Patient's had a cough for about 3 days. Wednesday he was cleaning out a turkey barn and did not wear a mask. He said that symptoms started after that. His cough has been productive. He has not had a fever. He is little bit dyspneic on exertion. He does not have any chest pain. The cough has been producing sputum.Exertion makes it little worse nothing only makes it better. He does not have any other infectious symptoms at this time. His sputum has been purulent according to him. It has been yellowish and green. Allergies/Adverse Reactions: No Known Drug Allergies Allergy (Verified 10/11/24 13:55) Home Medications: Quetiapine Fumarate 100 mg [Seroquel 100 MG] 300 mg PO HS 01/26/21 [History] Buprenorphine HCl/Naloxone HCl [Buprenorphine-Nalox 8-2 mg Tab] 1 each PO TID 12/09/21 [History] OXcarbazepine [Trileptal] 300 mg PO BID 07/14/22 [History] Testosterone Cypionate 75 mg IM WEEKLY 07/14/22 [History] Gabapentin 600 mg PO QID 10/15/23 [History] Buspirone HCl 15 mg PO DAILY 01/31/24 [History] Lisinopril 10 mg [Zestril 10 MG] 10 mg PO DAILY 01/31/24 [History] Prazosin HCl 2 mg PO DAILY 01/31/24 [History] Insulin Glargine [Lantus Insulin] 28 units SQ DAILY 02/11/24 [History] Hx Tetanus, Diphtheria Vaccination/Date Given: No Hx Influenza Vaccination/Date Given: No Hx Pneumococcal Vaccination/Date Given: No Immunizations Up to Date: Yes Travel Risk - International Travel Have you traveled outside of the country in past 3 weeks: No - Emerging Infectious Disease Are you exhibiting symptoms associated with any current EIDs: No Symptoms: Abdominal Pain, Vomitting - Review of Systems Constitutional: No Symptoms Eyes: No Symptoms Ears, Nose, & Throat: No Symptoms Respiratory: Cough Cardiac: No Symptoms Abdominal/Gastrointestinal: No Symptoms All Other Systems: Reviewed and Negative - Past Medical History Pertinent Past Medical History: Yes Neurological History: No Pertinent History ENT History: No Pertinent History Respiratory History: No Pertinent History Endocrine Medical History: Diabetes Type II Musculoskeletal History: Fractures GI Medical History: No Pertinent History History: No Pertinent History Psycho-Social History: Depression Male Reproductive Disorders: No Pertinent History Other Medical History: LEFT SHOULDER SURGERY - HAS SCREWS IN IT. PATIENT ACTIVE RECOVERY X 8 YEARS - PRESCRIPTION MEDS, METH AND ALCOHOL. - Past Surgical History Past Surgical History: Yes Neuro Surgical History: No Pertinent History Cardiac: No Pertinent History Respiratory: No Pertinent History Gastrointestinal: No Pertinent History Genitourinary: No Pertinent History Musculoskeletal: Orthopedic Surgery Male Surgical History: No Pertinent History Other Surgical History: 2 knee replacements right knee. Left shoulder surgery (states "put it together and put a screw in it") . right leg amputee 2021- revisions- last on 12/31 Significant Family History: no pertinent family hx - Social History Smoking Status: Former smoker How long have you smoked: 30 years Exposure to second hand smoke: No Drug Use: none - Social Determinants of Health Will the patient participate in the screening: Yes Do you worry about a steady place to live?: No Do you have any problems with any of the following?: No known problems In the past 12 months,have you had to go without utilities?: No Transportation Issues: No Has anyone in your support network made you feel unsafe?: No Have you or anyone in your house had to go w/o enough food: No - Nursing Vital Signs Nursing Vital Signs: Initial Vital Signs Temperature 97.2 F 10/11/24 13:58 Pulse Rate 71 10/11/24 13:58 Respiratory Rate 18 10/11/24 13:58 Blood Pressure 164/112 10/11/24 13:58 O2 Sat by Pulse Oximetry 94 L 10/11/24 13:58 Pain Scale Pain Intensity 4 - Physical Exam General Appearance: no apparent distress Eye Exam: PERRL/EOMI Ears, Nose, Throat Exam: normal ENT inspection Respiratory Exam: diminished breath sounds, prolonged expirations, crackl es/rales, wheezing Cardiovascular Exam: regular rate/rhythm, normal heart sounds Gastrointestinal/Abdomen Exam: soft, normal bowel sounds, No tenderness Neurologic Exam: alert, oriented x 3, cooperative Skin Exam: normal color, warm, dry SpO2: 98 Ordered Tests: Active Orders 24 hr Category Date Time Status CHEST 1 VIEW (PORTABLE) Stat Exams 10/11/24 14:07 Completed CBC W DIFF Stat Lab 10/11/24 14:20 Completed CMP Stat Lab 10/11/24 14:20 Completed POCT GLUCOSE Stat Lab 10/11/24 17:38 Completed VENOUS BLOOD GAS Stat Lab 10/11/24 15:30 Completed Respiratory Therapy Assessment DAILY RT 10/11/24 14:31 Active Medication Summary Generic Name Dose Route Start Last Admin Trade Name Freq PRN Reason Stop Dose Admin Albuterol Sulfate 1 gm 10/11/24 14:08 Albuterol Sulfate 8 Gm Mdi Hfa IH 11/10/24 14:07 Q2-4HPRN PRN SHORTNESS OF BREATH/WHEEZING Discontinued Medications Generic Name Dose Route Start Last Admin Trade Name Freq PRN Reason Stop Dose Admin Albuterol Sulfate 2.5 mg 10/11/24 14:26 10/11/24 14:29 Albuterol Solution 2.5 Mg/0.5 Ml Ud Solution IH 10/11/24 14:27 2.5 mg STAT ONE Administration Albuterol Sulfate Confirm 10/11/24 14:26 Albuterol Solution 2.5 Mg/0.5 Ml Ud Solution Administered 10/11/24 14:27 Dose 2.5 mg IH .STK-MED ONE Albuterol/Ipratropium 3 ml 10/11/24 14:08 10/11/24 14:28 Ipratropium/Albuterol Sulfate 3 Ml Ampul.Neb IH 10/11/24 14:09 3 ml STAT ONE Administration Albuterol/Ipratropium Confirm 10/11/24 14:24 Ipratropium/Albuterol Sulfate 3 Ml Ampul.Neb Administered 10/11/24 14:25 Dose 3 ml IH .STK-MED ONE Sodium Chloride 1,000 mls @ 999 mls/hr 10/11/24 15:11 10/11/24 17:31 Sodium Chloride 0.9% 1000 Ml IV 10/11/24 16:11 Infused .Q1H1M STA Infusion Sodium Chloride Confirm 10/11/24 15:30 Sodium Chloride 0.9% 1000 Ml Administered 10/11/24 15:31 Dose 1,000 mls @ ud .ROUTE .STK-MED ONE Insulin Human Regular 20 unit 10/11/24 15:07 10/11/24 15:31 Insulin Regular, Human 1 Unit SQ 10/11/24 15:08 20 unit STAT ONE Administration Insulin Human Regular Confirm 10/11/24 15:30 Insulin Regular, Human 1 Unit Administered 10/11/24 15:31 Dose 20 unit .ROUTE .[facility] Lab/Rad Data: Laboratory Result Diagrams 10/11/24 14:20 10/11/24 14:20 Laboratory Results 10/11/24 10/11/24 10/11/24 Range/Units 17:38 15:30 14:22 WBC (4.23-9.07) x10^3/uL RBC (4.63-6.08) x10^6/uL Hgb (13.7-17.5) g/dL Hct (40.1-51.0) % MCV (79.0-92.2) fL MCH (25.7-32.2) pg MCHC (32.3-36.5) g/dL RDW (11.6-14.4) % Plt Count (163-337) x10^3/uL MPV (9.4-12.4) fL Gran % (34.0-67.9) % Immature Gran % (Auto) (0.001-0.429) % Nucleat RBC Rel Count (0.00-0.2) % Eos # (Auto) (0.04-0.54) x10^3/uL Immature Gran # (Auto) (0.001-0.031) x10^3u/L Absolute Lymphs (auto) (1.32-3.57) x10^3/uL Absolute Monos (auto) (0.30-0.82) x10^3/uL Absolute Nucleated RBC (0.00-0.012) x10^3u/L Lymphocytes % (21.8-53.1) % Monocytes % (5.3-12.2) % Eosinophils % (0.8-7.0) % Basophils % (0.2-1.2) % Absolute Granulocytes (1.78-5.38) x10^3/uL Basophils # (0.01-0.08) x10^3/uL pO2/FiO2 Ratio 21.0 % VBG pH 7.43 H (7.32-7.42) VBG pCO2 at Pat Temp 40 L (42-55) mm/Hg VBG pO2 at Pat Temp 74 H (25-40) mm/Hg VBG HCO3 26.5 (22-28) meq/L VBG O2 Sat ([place]) 96.6 (95-100) VBG Base Excess 2.0 (-2.0-2.0) VBG Hemoglobin 15.3 VBG Carboxyhemoglobin 4.0 (0.0-6.9) % T HGB POC Potassium 5.2 H (3.5-5.1) Sodium (135-145) mmol/L Potassium (3.5-5.1) mmol/L Chloride (98-107) mmol/L Carbon Dioxide (22-30) mmol/L Anion Gap (5-15) MEQ/L BUN (9-20) mg/dL Creatinine (0.66-1.25) mg/dL Estimated GFR ML/MIN Glucose (74-106) mg/dL POC Glucometer 231 H (74 to 106) mg/dL Calcium (8.4-10.2) mg/dL Total Bilirubin (0.2-1.3) mg/dL AST (17-59) U/L ALT (0-50) U/L Alkaline Phosphatase (38-126) U/L Serum Total Protein (6.3-8.2) g/dL Albumin (3.5-5.0) g/dL Influenza Type A Ag NEGATIVE (NEGATIVE) Influenza Type B Ag NEGATIVE (NEGATIVE) RSV (PCR) NEGATIVE (NEGATIVE) SARS-CoV-2 (PCR) NEGATIVE (NEGATIVE) 10/11/24 10/11/24 Range/Units 14:20 14:20 WBC 6.7 (4.23-9.07) x10^3/uL RBC 5.10 (4.63-6.08) x10^6/uL Hgb 14.6 (13.7-17.5) g/dL Hct 45.1 (40.1-51.0) % MCV 88.4 (79.0-92.2) fL MCH 28.6 (25.7-32.2) pg MCHC 32.4 (32.3-36.5) g/dL RDW 12.8 (11.6-14.4) % Plt Count 148 L (163-337) x10^3/uL MPV 10.2 (9.4-12.4) fL Gran % 81.0 H (34.0-67.9) % Immature Gran % (Auto) 0.3 (0.001-0.429) % Nucleat RBC Rel Count 0.0 (0.00-0.2) % Eos # (Auto) 0 L (0.04-0.54) x10^3/uL Immature Gran # (Auto) 0.02 (0.001-0.031) x10^3u/L Absolute Lymphs (auto) 0.62 L (1.32-3.57) x10^3/uL Absolute Monos (auto) 0.62 (0.30-0.82) x10^3/uL Absolute Nucleated RBC 0.00 (0.00-0.012) x10^3u/L Lymphocytes % 9.2 L (21.8-53.1) % Monocytes % 9.2 (5.3-12.2) % Eosinophils % 0.0 L (0.8-7.0) % Basophils % 0.3 (0.2-1.2) % Absolute Granulocytes 5.43 H (1.78-5.38) x10^3/uL Basophils # 0.02 (0.01-0.08) x10^3/uL pO2/FiO2 Ratio % VBG pH (7.32-7.42) VBG pCO2 at Pat Temp (42-55) mm/Hg VBG pO2 at Pat Temp (25-40) mm/Hg VBG HCO3 (22-28) meq/L VBG O2 Sat ([place]) (95-100) VBG Base Excess (-2.0-2.0) VBG Hemoglobin VBG Carboxyhemoglobin (0.0-6.9) % T HGB POC Potassium (3.5-5.1) Sodium 132 L (135-145) mmol/L Potassium 4.5 (3.5-5.1) mmol/L Chloride 96 L (98-107) mmol/L Carbon Dioxide 25 (22-30) mmol/L Anion Gap 15.8 H (5-15) MEQ/L BUN 17 (9-20) mg/dL Creatinine 1.06 (0.66-1.25) mg/dL Estimated GFR 83.4 ML/MIN Glucose 531 H* (74-106) mg/dL POC Glucometer (74 to 106) mg/dL Calcium 8.5 (8.4-10.2) mg/dL Total Bilirubin 0.60 (0.2-1.3) mg/dL AST 23 (17-59) U/L ALT 23 (0-50) U/L Alkaline Phosphatase 57 (38-126) U/L Serum Total Protein 6.8 (6.3-8.2) g/dL Albumin 4.2 (3.5-5.0) g/dL Influenza Type A Ag (NEGATIVE) Influenza Type B Ag (NEGATIVE) RSV (PCR) (NEGATIVE) SARS-CoV-2 (PCR) (NEGATIVE) - Progress Progress: improved Air Movement: fair Progress Note: Patient was stable throughout stay. He got a nebulizer treatment and improved dramatically. I am going to send him home with albuterol inhaler and some doxycycline. His sugars are high when he got here in the 500s. I gave him a liter of fluids and 15 units of regular insulin his sugars went down to 230 and he was fine. He did not have an anion gap. He also had normal bicarb he was not in acidosis. 10/11/24 17:49 Blood Culture(s) Obtained: No Antibiotics given: No Medical Desision Making - Diagnostic Testing Diagnostic test were ordered, analyzed, and reviewed by me: Yes - Risk of complications Minimal Risk: Minimal risk of morbidity - Departure Departure Disposition: Home Clinical Impression: Hyperglycemia, Acute bronchitis Condition: Stable Critical Care Time: No Referrals: HARLEY NUÑEZ NP [Primary Care Provider] - Follow up/PCP as directed
[2024-10-11 14:24] LABS: Absolute Neutrophil Ct (ANC) 5.43 x10^3/uL (1.78-5.38); BASOPHIL % 0.3 % (0.2-1.2); Basophil (Absolute #) 0.02 x10^3/uL (0.01-0.08); Eosinophil (Absolute #) 0 x10^3/uL (0.04-0.54); Hematocrit 45.1 % (40.1-51.0); Hemoglobin 14.6 g/dL (13.7-17.5); IMMATURE GRAN # 0.02 x10^3u/L (0.001-0.031); IMMATURE GRAN % 0.3 % (0.001-0.429); Lymphocyte (Absolute #) 0.62 x10^3/uL (1.32-3.57); Lymphocytes % 9.2 % (21.8-53.1); Mean Cell Volume 88.4 fL (79.0-92.2); Mean Corpuscular Hemoglobin 28.6 pg (25.7-32.2); Mean Corpuscular Hgb Concent. 32.4 g/dL (32.3-36.5); Mean Platelet Volume 10.2 fL (9.4-12.4); Monocyte (Absolute #) 0.62 x10^3/uL (0.30-0.82); Monocytes % 9.2 % (5.3-12.2); Platelet Count 148 x10^3/uL (163-337); Red Cell Distribution Width 12.8 % (11.6-14.4); White Blood Count 6.7 x10^3/uL (4.23-9.07)
[2024-10-11] MEDS ORDERED: DUONEB 0.5-3 MG/3 ml Neb IH ONE (14:24)
[2024-10-11] MEDS ORDERED: PROVENTIL Solution 2.5 MG/0.5 ML IH ONE (14:26)
[2024-10-11] MEDS: DUONEB 0.5-3 MG/3 ml Neb IH ONE (14:28)
[2024-10-11] MEDS: PROVENTIL Solution 2.5 MG/0.5 ML IH ONE (14:29)
[2024-10-11 14:37] LABS: ALBUMIN 4.2 g/dL (3.5-5.0); ANION GAP 15.8 MEQ/L (5-15); BILIRUBIN,TOTAL 0.6 mg/dL (0.2-1.3); Calcium 8.5 mg/dL (8.4-10.2); Creatinine 1 1.06 mg/dL (0.66-1.25); EST GLOMERULAR FILTRATION RATE 83.4 ML/MIN; Potassium 4.5 mmol/L (3.5-5.1); Total Protein 6.8 g/dL (6.3-8.2)
--- NOTE | 2024-10-11 14:45 | XRAY ---
Indication: Cough. Comparison: August 27, 2022 Portable chest remains inflated and clear. Heart not enlarged. Bony thorax intact again with left glenoid process orthopedic screw. No acute findings.
[2024-10-11 15:01] LABS: INFLUENZA A NEGATIVE (NEGATIVE); INFLUENZA B NEGATIVE (NEGATIVE); RESPIRATORY SYNCTIAL VIRUS NEGATIVE (NEGATIVE); SARS-CoV-2 Xpert Express NEGATIVE (NEGATIVE)
[2024-10-11] MEDS ORDERED: Sodium Chloride 0.9% 1000 ML 1,000 ML ONE (15:30)
[2024-10-11] MEDS ORDERED: HUMULIN R ONE (15:30)
[2024-10-11] MEDS: HUMULIN R SQ ONE (15:31)
[2024-10-11] MEDS: Sodium Chloride 0.9% 1000 ML 1,000 ML IV STA (15:32)
[2024-10-11 15:39] LABS: VBG HCO3- 26.5 meq/L (22-28); VBG HEMOGLOBIN 15.3; VBG O2 SATURATION 96.6 (95-100); VBG POTASSIUM 5.2 (3.5-5.1); VBG pH 7.43 (7.32-7.42)
[2024-10-11 16:22] VITALS: PULSE 70
[2024-10-11 17:45] VITALS: BP 126/96
[2024-10-11 17:52] VITALS: O2SAT 98
== END 2024-10-11 18:04 | disposition home or self-care (01) ==
LOC: ED 13:43
DX: J20.9 Acute bronchitis, unspecified (principal); E11.65 Type 2 diabetes mellitus with hyperglycemia; R05.1 Acute cough; Z79.4 Long term (current) use of insulin; Z79.891 Long term (current) use of opiate analgesic; Z79.899 Other long term (current) drug therapy
CPT/HCPCS: 0241U; 36415; 71045; 80053; 82805; 82947; 85025; 94640; 96360; 96361; 99284; J1815; A9270-GY